=== PATIENT | male | born 1990 | race Caucasian/White ===

== ENCOUNTER 2023-04-24 09:56 | Emergency (ER) | payer BC, SELFPAY ==
[2023-04-24 10:07] VITALS: BP 119/69; PULSE 88; RESP 18; TEMP 36.8; O2SAT 98; BMI 23.1
--- NOTE | 2023-04-24 11:07 | ED_ITS ---
HPI - General Adult General Chief complaint: Nausea/Vomiting/Diarrhea Stated complaint: flu like symptoms Time Seen by Provider: 04/24/23 10:55 Source: patient Mode of arrival: walk-in Limitations: no limitations History of Present Illness HPI narrative: patient's here complaining of nausea. He says occasionally dry heaves but he really doesn't have much of that. This is been going off-and-on for a couple weeks. He does have sleep disruption because he going to different jobs. He is not had a change in bowel movements. He says he has chronic diarrhea. He's not had fever shakes or chills. No previous surgical history. He does not use marijuana products. No urinary problems. He does not have a history of gastric ulcers, in fact he has no abdominal discomfort or pain at all just subliminal nausea. He does not use alcoholic beverages. He's not had a history of pancreatitis or hepatitis. His bowel movements are now normal color. His urine is normal color. Hot had any weight loss, in fact he is put on a little bit of weight in the last three months. Related Data Home Medications Medication Instructions Recorded Confirmed ibuprofen 200 mg tablet (Advil) 200 mg PO Q8H PRN fever or pain 04/24/23 04/24/23 Allergies Allergy/AdvReac Type Severity Reaction Status Date / Time acetaminophen Allergy Intermediate Rash Verified 04/24/23 10:05 [From [facility] NyQuil Cold/Flu Liquicap] dextromethorphan Allergy Intermediate Rash Verified 04/24/23 10:05 [From [facility] NyQuil Cold/Flu Liquicap] doxylamine Allergy Intermediate Rash Verified 04/24/23 10:05 [From [facility] NyQuil Cold/Flu Liquicap] pcn Allergy Intermediate Hives Uncoded 04/24/23 10:05 vicodin Allergy Mild Migraine Uncoded 04/24/23 10:05 [facility] PFSH Social History Smoking status: Current some day smoker Exam Narrative Exam Narrative: awake alert pleasant male does not appear in any distress. He came from work and his hands are covered with grease. We did talk to him about possibility carbon monoxide poisoning at home or toxic fumes at work and he does not think that is relevant or the cause of his nausea. No other coworkers or family residents at home have the symptoms. Otherwise he is very pleasant vital signs are stable. Clinical examination the abdomen shows no hepatosplenomegaly no guarding rebound rigidity or peritoneal findings. No abdominal distention. HEENT examination shows no focus of infection is no scleral icterus or jaundice. Trunk torso or extremities are unremarkable. He has no respiratory distress. Constitutional Vital Signs, click to edit/add: Last Vital Signs Temp 98.2 F 04/24/23 10:07 Pulse 88 04/24/23 10:07 Resp 18 04/24/23 10:07 BP 119/69 04/24/23 10:07 Pulse Ox 98 04/24/23 10:07 O2 Del Method Room Air 04/24/23 10:07 Course Vital Signs Vital signs: Vital Signs Temperature 98.2 F 04/24/23 10:07 Pulse Rate 88 04/24/23 10:07 Respiratory Rate 18 04/24/23 10:07 Blood Pressure 119/69 04/24/23 10:07 Pulse Oximetry 98 04/24/23 10:07 Oxygen Delivery Method Room Air 04/24/23 10:07 Temperature 98.2 F 04/24/23 10:07 Pulse Rate 88 04/24/23 10:07 Respiratory Rate 18 04/24/23 10:07 Blood Pressure 119/69 04/24/23 10:07 Pulse Oximetry 98 04/24/23 10:07 Oxygen Delivery Method Room Air 04/24/23 10:07 Medical Decision Making [facility] Narrative Medical decision making narrative: patient with isolated nausea, no weight loss no other worrisome symptoms. 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 Laboratory testing shows normal chem fourteen kidney function and white blood cell count. No physical findings. L have to treat him in. Empirically with Zofran. He should follow up with primary care or gastrointestinal should symptoms persist Lab Data Labs: Lab Results 04/24/23 Range/Units 11:03 WBC 10.3 (4.0-11.0) 10^3/uL RBC 4.47 L (4.70-6.10) 10^6/uL Hgb 13.9 L (14.0-18.0) g/dL Hct 41.5 L (42.0-54.0) % MCV 92.8 (80.0-94.0) fL MCH 31.1 (25.9-34.0) pg MCHC 33.5 (29.9-35.2) g/dL RDW 12.9 (11.0-15.0) % Plt Count 234 (150-450) 10^3/uL MPV 9.1 L (9.5-13.5) fL Neut % (Auto) 72.7 (43.0-75.0) % Lymph % (Auto) 18.2 L (20.5-60.0) % [place] % (Auto) 6.6 (1.7-12.0) % Eos % (Auto) 1.8 (0.9-7.0) % Baso % (Auto) 0.4 (0.2-2.0) % Neut # (Auto) 7.5 H (1.4-6.5) 10^3/uL Lymph # (Auto) 1.9 (1.2-3.8) 10^3/uL [place] # (Auto) 0.7 (0.3-0.8) 10^3/uL Eos # (Auto) 0.2 (0.0-0.7) 10^3/uL Baso # (Auto) 0.0 (0.0-0.1) 10^3/uL Abs Immat Gran (auto) 0.03 (0.00-0.03) 10^3/uL Imm/Tot Granulo (auto) 0.3 (0.0-0.5) % Sodium 140 (136-145) mmol/L Potassium 4.4 (3.5-5.1) mmol/L Chloride 103 (98-107) mmol/L Carbon Dioxide 28.7 (21.0-32.0) mmol/L Anion Gap 12.7 BUN 13.0 (7.0-18.0) mg/dL Creatinine 0.93 (0.70-1.30) mg/dL Est GFR ( Amer) >60 (>=60) Est GFR (Non-Af Amer) >60 (>=60) BUN/Creatinine Ratio 14.0 Glucose 86 (74-106) mg/dL Calcium 9.0 (8.5-10.1) mg/dL Total Bilirubin 0.5 (0.2-1.0) mg/dL AST 18 (15-37) U/L ALT 29 (16-63) U/L Alkaline Phosphatase 50 (46-116) U/L Total Protein 7.0 (6.4-8.2) g/dL Albumin 4.0 (3.4-5.0) g/dL Globulin 3.0 g/dL Albumin/Globulin Ratio 1.3 Lipase 22.0 (16.0-77.0) U/L Discharge Plan Discharge Chief Complaint: Nausea/Vomiting/Diarrhea Clinical Impression: Nausea Patient Disposition: Home, Self-Care Time of Disposition Decision: 12:17 Prescriptions / Home Meds: No Action ibuprofen [Advil] 200 mg tablet 200 mg PO Q8H PRN (Reason: fever or pain) Additional Instructions: may use Zofran as needed, follow up with primary care doctor or gastroenterology if symptoms persist Stand Alone Forms: Portal Instructions Referrals: Physician,Non-Staff, MD [Primary Care Provider] - 1 week
[2023-04-24 11:20] LABS: Basophils Percent Auto 0.4 % (0.2-2.0); Eosinophils Absolute Auto 0.2 10^3/uL (0.0-0.7); Eosinophils Percent Auto 1.8 % (0.9-7.0); Hematocrit 41.5 % (42.0-54.0); Hemoglobin 13.9 g/dL (14.0-18.0); Immature Granulocytes Abs Auto 0.03 10^3/uL (0.00-0.03); Immature Granulocytes Pct Auto 0.3 % (0.0-0.5); Lymphocytes Absolute Auto 1.9 10^3/uL (1.2-3.8); Lymphocytes Percent Auto 18.2 % (20.5-60.0); Mean Corpuscular HGB Conc 33.5 g/dL (29.9-35.2); Mean Corpuscular Hemoglobin 31.1 pg (25.9-34.0); Mean Corpuscular Volume 92.8 fL (80.0-94.0); Mean Platelet Volume 9.1 fL (9.5-13.5); Monocytes Absolute Auto 0.7 10^3/uL (0.3-0.8); Monocytes Percent Auto 6.6 % (1.7-12.0); Neutrophils Absolute Auto 7.5 10^3/uL (1.4-6.5); Neutrophils Percent Auto 72.7 % (43.0-75.0); Platelet Count 234 10^3/uL (150-450); Red Blood Count 4.47 10^6/uL (4.70-6.10); Red Cell Distribution Width 12.9 % (11.0-15.0); White Blood Count 10.3 10^3/uL (4.0-11.0)
[2023-04-24 11:35] LABS: Alanine Aminotransferase 29 U/L (16-63); Albumin Globulin Ratio 1.3; Alkaline Phosphatase 50 U/L (46-116); Anion Gap 12.7; Aspartate Amino Transferase 18 U/L (15-37); Bilirubin Total 0.5 mg/dL (0.2-1.0); Carbon Dioxide 28.7 mmol/L (21.0-32.0); Chloride 103 mmol/L (98-107); Estimated GFR (African America >60 (>=60); Estimated GFR (Non-African Ame >60 (>=60); Glucose 86 mg/dL (74-106); Potassium 4.4 mmol/L (3.5-5.1); Sodium 140 mmol/L (136-145)
== END 2023-04-24 12:25 | disposition home or self-care (01) ==
PROVIDERS: Emergency Provider Emergency Medicine Emergency Medical Services
DX: R11.0 Nausea (principal); F17.210 Nicotine dependence, cigarettes, uncomplicated
CPT/HCPCS: 36415; 80053; 83690; 85025; 99283

== ENCOUNTER 2023-11-15 07:25 | Emergency (ER) | payer BC, SELFPAY ==
[2023-11-15 07:29] VITALS: BP 122/80; PULSE 97; TEMP 36.7; O2SAT 98; BMI 23.3
--- NOTE | 2023-11-15 07:32 | XR_ITS ---
The [address] [address] Patient Name: REFUGIO POSADAS MRN: [id number] date: 1990 Sex: M Assigned Patient Location: ER Current Patient Location: ER Accession/Order Number: [id number] Exam Date: 11/15/2023 07:36 Report Date: 11/15/2023 08:07 At the request of: JESUS PARRY Procedure: XR hand LT min 3V PROCEDURE: XR hand LT min 3V HISTORY: injury ; second metacarpal pain and swelling following injury COMPARISON: None. FINDINGS: BONES:No fracture, acute abnormality, or significant arthropathy. SOFT TISSUES:No visible soft tissue swelling. EFFUSION:None visible. OTHER: Negative. XR/XR hand LT min 3V IMPRESSION: 1. No acute bone abnormality. Electronically authenticated by: RICHARD WILSON Date: 11/15/2023 08:07
--- OUTSIDE RECORDS SUMMARY | 2023-11-15 07:34 | XMS_ITS | CCD ---
Author Organization [facility] Care Team Providers Care Cardiologist Name Role Phone Unavailable Primary Care Provider UnavailBRYCE Mccord Attending Unavailable BRYCE RODRIGUEZ Consulting Unavailable BRYCE RODRIGUEZ Admitting Unavailable REQUEST, NONE LISTED Primary Care Unavaila ble NONE, XXXX Primary Care Physician Unavailab le MAITE Moreno Attending Provider [phone] NON STAFF Primary Care Provider UnavailMAITE Light Attending Provider [phone] MAITE Moreno Attending Provider [phone] NON STAFF Primary Care Provider Unavailradha Bansal APRN Ghazala Christine Attending Provider [phone] MAITE Bansal Ghazala D Attending Provider [phone] NON STAFF Primary Care Unavailable Bansal, Ghazala D Attending Unavailable Bansal, Ghazala D Admitting Unavailable NON STAFF Primary Care Unavailable Gabrielle Moreno Admitting Unavailable Gabrielle Moreno Attending Unavailable NON STAFF Primary Care Unavailable Bansal, Ghazala D Admitting Unavailable Bansal, Ghazala D Attending Unavailable NON STAFF Primary Care Unavailable Bansal, Ghazala D Admitting Unavailable Bansal, Ghazala D Attending Unavailable Bansal, Ghazala D Admitting Unavailable NON STAFF Primary Care Unavailable Bansal, Ghazala D Attending Unavailable NON STAFF Primary Care Unavailable Bansal, Ghazala D Attending Unavailable Bansal, Ghazala D Admitting Unavailable Unavailable Primary Care Provider UnavailPALLAVI Azevedo Attending Unavailable Jeremiah Torres Attending Unavailable BANSAL, GHAZALA Referring Unavailable NO PCP, NO PCP Primary Care Unavailable BANSAL, GHAZALA Referring Unavailable NO PCP, NO PCP Primary Care Unavailable BANSAL, GHAZALA Referring Unavailable NO PCP, NO PCP Primary Care Unavailable Allergies Allergy Classification Reported Allergen(s) Allergy Type Date of Onset Reaction(s) Facility (3 sources) Acetaminophen / HYDROcodone; Translations: [HYDROCODONE-ACETAM INOPHEN] Drug Allergy 04-25-20 18 [place], [place] (9 sources) Penicillins; Translations: [penicillins] Propensity to adverse reactions to drug 01-15-20 17 Anaphylaxis [place], [place] (1 source) Acetaminophen / HYDROcodone Drug Allergy 04-22-20 17 [facility] (1 source) Acetaminophen / Pseudoephedrine Drug Allergy 12-13-19 17 [facility] (1 source) diphenhydrAMINE Drug Allergy [facility] (1 source) Penicillins Drug allergy (disorder) 07-16-19 14 [facility] (2 sources) NyQuil; Translations: [NYQUIL] Drug allergy (disorder) 12-13-19 17 [facility] (6 sources) Acetaminophen; Translations: [acetaminophen] Drug Allergy 07-19-19 migraine, [facility] (6 sources) Dextromethorphan; Translations: [dextromethorphan] Drug Allergy 07-19-19 [facility] (6 sources) diphenhydrAMINE; Translations: [diphenhydramine] Drug Allergy 07-19-19 [facility] (6 sources) Doxylamine; Translations: [doxylamine] Drug Allergy 07-19-19 [facility] (6 sources) HYDROcodone; Translations: [hydrocodone] Drug Allergy 07-19-19 [facility] (6 sources) Pseudoephedrine; Translations: [pseudoephedrine] Drug Allergy 07-19-19 [facility] (1 source) Penicillins Drug allergy (disorder) 07-19-19 [facility] (1 source) Penicillins Propensity to adverse reactions to drug 01-15-20 17 Anaphylaxis [facility] (1 source) diphenhydrAMINE; Translations: [DIPHENHYDRAMINE HCL] Drug Allergy 04-09-20 20 [facility] (1 source) [id number] AMINOPHEN; Translations: [SCMQDEBKVUE-XD-FWO TAMINOPHEN] Propensity to adverse reactions to drug (disorder) 04-09-20 [facility] Medications Current Medications Medication Drug Class(es) Dates Sig (Normalized) Sig (Original) acetaminophen 500 mg oral tablet (3 sources) Start: 12-25-2019 acetaminophen (TYLENOL) tablet 1,000 mg Start: 12-24-2019 End: 10-03-2023 take 1 tablet by mouth every six hours as needed for pain acetaminophen (TYLENOL) 325 MG tablet Take 1 tablet by mouth every 6 hours as needed for Pain 30 tablet 0 12/24/2019 10/03/2023 Discontinued (LIST CLEANUP) [id number] 200 actuat albuterol 0.09 mg/actuat metered dose inhaler (2 sources) beta2-Adrenergic Agonist Start: 01-14-2017 albut maryjo sulfate HFA (PROVENTIL HFA) 108 (90 Base) MCG/ACT inhaler Inhale 1-2 puffs into the lungs every 4 hours as needed for Wheezing or Shortness of Breath (Space out to every 6 hours as symptoms improve) Space out to every 6 hours as symptoms improve. 1 Inhaler 0 01/14/2017 Active Start: 01-14-2017 albuterol sulf ate HFA (PROVENTIL HFA) 108 (90 Base) MCG/ACT inhaler Inhale 1-2 puffs into the lungs every 4 hours as needed for Wheezing or Shortness of Breath (Space out to every 6 hours as symptoms improve) Space out to every 6 hours as symptoms improve. 1 Inhaler 0 01/14/2017 Active Yowqzel-Gcbgfkmofrrjx-Ofxxvk ne (EXCEDRIN MIGRAINE PO) (1 source) Aspirin-Acetamin ophen-Caffeine (EXCEDRIN MIGRAINE PO) Take by mouth 0 Active azithromycin 250 mg oral tab let (1 source) Macrolide Antimicrobial S t a r t : 0 4 - 1 7 - 2 0 2 4 E n d : 0 4 - 2 2 - 2 0 2 4 take 2 tablets by mouth once daily azithromycin (ZITHROMAX) 250 MG tablet Take 2 tablets by mouth daily for 5 days 10 tablet 0 10/03/2023 10/08/2023 Active ibuprofen 600 mg oral tablet (7 sources) Nonsteroidal Anti-inflammat ory Drug S t a r t : 0 4 - 1 7 - 2 0 2 4 take 1 tablet by mouth every six hours as needed for pain ibuprofen (IBU) 600 MG tablet Take 1 tablet by mouth every 6 hours as needed for Pain 120 tablet 0 10/03/2023 Active Start: 12-24-2019 End: 10-03-2023 take 1 tablet by mouth every eight hours as needed for pain ibuprofen (IBU) 800 MG tablet Take 1 tablet by mouth every 8 hours as needed for Pain 10 tablet 3 05/29/2023 10/03/2023 Discontinued (LIST CLEANUP) End: 10-03-2023 ibuprofen (ADVIL;MOTRIN) 200 MG CAPS Take 2 capsules by mouth 0 10/03/2023 Discontinued (LIST CLEANUP) naproxen 500 mg oral tablet (1 source) Nonsteroidal Anti-inflammatory Drug Start: 07-17-2023 take 1 tablet by mouth twice daily Naprosyn 500 mg Tab 500 mg = 1 tab(s), Oral, BID, # 20 tab(s), Refills(s) 0 Start Date: 07/17/23 Status: Ordered tiZANidine 4 mg oral tablet (2 sources) Central alpha-2 Adrenergic Agonist Start: 12-24-2019 End: 10-03-2023 take 1 tablet by mouth every eight hours as needed tiZANidine (ZANAFLEX) 4 MG tablet Take 1 tablet by mouth every 8 hours as needed (Shoulder oain) 12 tablet 0 12/24/2019 10/03/2023 Discontinued (LIST CLEANUP) Completed/Discontinued Medications Medication Drug Class(es) Dates Sig (Normalized) Sig (Original) 2 ml orphenadrine citrate 30 mg/ml injection (1 source) Muscle Relaxant Start: 12-25-2019 End: 12-25-2019 orphenadrine (NORFLEX) injection 60 mg Problems Problem Classification Problem Date Documented Date Episodic/Chronic Crushing injury or internal injury (2 sources) Crushing injury of forearm; Translations: [Crushing injury of unspecified forearm, initial encounter] Onset: 07-17-2023 Episodic Headache; including migraine (1 source) Other migraine, not intractable, without status migrainosus; Translations: [Other migraine, not intractable, without status migrainosus] Onset: 05-29-2023 Chronic Headache; including migraine (3 sources) Headache; including migraine; Translations: [HEADACHE UNSPECIFIED] Onset: 11-09-2021 Other upper respiratory infections (3 sources) Acute sinusitis, unspecified; Translations: [Streptococcal sore throat] Onset: 11-10-2021 10-03-2023 Episodic Sprains and strains (1 source) Shoulder strain; Translations: [Strain of right shoulder, initial encounter] Episodic Substance-related disorders (1 source) Smoker 03-24-2014 Chronic Comment on above: Added secondary to d ocumentation in Social History. Superficial injury; contusion (1 source) Contusion of right forearm, initial encounter; Translations: [Contusion of right forearm, initial encounter] Onset: 09-21-2023 Episodic Unclassified (1 source) Contusion of right forearm, initial encounter; Translations: [Contusion of right forearm, initial encounter] Onset: 08-03-2023 Unclassified (1 source) Crushing injury of right hand, initial encounter; Translations: [Crushing injury of right hand, initial encounter] Onset: 07-24-2023 Results Test Name Value Interpretation Reference Range Facil ity COVID-19, Rapidon 10-03-2023 SARS-CoV-2 (COVID-19) RdRp gene JAHAIRA+probe Ql (Resp) Not detected Not Detected [facility] Comment on above: Rapid NAAT: The specimen is NEGATIVE for SARS-CoV-2, the novel coronavirus associated with COVID-19. The ID NOW COVID-19 assay is designed to detect the virus that causes COVID-19 in patients with signs and symptoms of infection who are suspected of COVID-19. An individual without symptoms of COVID-19 and who is not shedding SARS-CoV-2 virus would expect to have a negative (not detected) result in this assay. Negative results should be treated as presumptive and, if inconsistent with clinical signs and symptoms or necessary for patient management, should be tested with an alternative molecular assay. Negative results do not preclude SARS-CoV-2 infection and should not be used as the sole basis for patient management decisions. Fact sheet for Healthcare Providers: https://www.fda.gov/media/679929/download Fact sheet for Patients: https://www.fda.gov/media/562446/download Methodology: Isothermal Nucleic Acid Amplification Specimen Description .NASOPHARYNGEAL SWAB [facility] Flu A/B Ag Detectionon 10-02 Flu A Ag Detection Negative Normal NEG [facility] Comment on above: Result Comment: for Influenza A Antigen Performed By: #### F LUABA #### [facility] [address] [place], [place] [id number] Supervisor [employer]: Dc Walker MD Flu B Ag Detection Negative Normal NEG [facility] Comment on above: Result Comment: for Influenza B Antigen. Performed By: #### F LUABA #### [facility] [address] [place] [address] Supervisor [employer]: Dc Walker MD Rapid Strep Screenon 024 Interpretation and review of laboratory results Abnormal [facility] Specimen source Nom (Unsp spec) .THROAT SWAB [facility] Strep A, Molecular 0.1 Abnormal NEGATIVE [facility] Rapid influenza A/B antigens on 10-03-2023 FLUAV Ag Ql (Unsp spec) Negative NEGATIVE [facility] Comment on above: for Influenza A Anti gen FLUBV Ag Ql (Unsp spec) Negative NEGATIVE [facility] Comment on above: for Influenza B Anti gen. [facility] [id number] 10-03-2023 SARS-CoV-2 (COVID-19) RNA JAHAIRA+probe Ql (Unsp spec) Not detected Normal NOTDET [facility] Comment on above: Result Comment: Rapid NAAT: The specimen is NEGATIVE for SARS-CoV-2, the novel coronavirus associated with COVID-19. The ID NOW COVID-19 assay is designed to detect the virus that causes COVID-19 in patients with signs and symptoms of infection who are suspected of COVID-19. An individual without symptoms of COVID-19 and who is not shedding SARS-CoV-2 virus would expect to have a negative (not detected) result in this assay. Negative results should be treated as presumptive and, if inconsistent with clinical signs and symptoms or necessary for patient management, should be tested with an alternative molecular assay. Negative results do not preclude SARS-CoV-2 infection and should not be used as the sole basis for patient management decisions. Fact sheet for Healthcare Providers: https://www.fda.gov/media/281441/download Fact sheet for Patients: https://www.fda.gov/media/776077/download Methodology: Isothermal Nucleic Acid Amplification Performed By: #### C OVRB #### [facility] [address] [place] [address] Supervisor [employer]: Dc Walker MD Strep Group A, Rapidon 10-02 Strep A, Molecular .1 Abnormal NEG [facility] Comment on above: Performed By: #### R SAB #### [facility] [address] [place] [address] Supervisor [employer]: Dc Walker MD Source .THROAT SWAB Normal [facility] Comment on above: Performed By: #### R SAB #### [facility] [address] [place] [address] Supervisor [employer]: Dc Walker MD XR wrist RT min 3V*on 2023 XR wrist RT min 3V* [facility] Main [address] [address] XRay Report Signed Patient: Refugio Posadas MR#: [id number] : 1990 Acct:[id number] Age/Sex: 33 / M ADM Date: 07/19/23 Loc: [facility] Room: Type: [facility] Attending Dr: Gabrielle Moreno APRN Copies to: Gabrielle Moreno APRN Ordering Provider: Gabrielle Moreno APRN Date of Service: 07/19/23 XR/XR wrist RT min 3V*: RIGHT WRIST PAIN RIGHT WRIST - 4 views CLINICAL DATA: Crush injury of right arm between 2 metal pieces of machinery at work 2 days ago. Pain, numbness and tingling at the wrist, greater laterally. COMPARISON: None AP, lateral, ulnar deviation and oblique views were obtained. There is no evidence of fracture or dislocation. There are no significant soft tissue abnormalities. XR/XR wrist RT min 3V* IMPRESSION: NO ACUTE BONY INJURY. Impression dictated by: Laura Sewell M.D.07/19/2023 3:52 PM Dictation Location: [place] [address] Transcribed By: [facility] 07/19/231551 Dictated By: Laura Sewell MD 07/19/231549 Signed By: 07/19/23 155 Normal [facility] Consent for Treatmenton 06-20 Consent for Treatment [id number] Normal [facility] Discharge Instructionson Discharge Instructions [id number] .[id number] Normal [facility] ED Clinical Summaryon 2023 ED Clinical Summary [place] [id number] ED Clinical Summary Person Information Name: REFUGIO POSADAS/[facility] Age: 33 Years : 1990 Sex: Male Language: East Timorese PCP: NONE, XXXX Marital Status: Single Visit Id: Visit Reason: Arm injury - Minor; arm injury at work Speciality: Acuity: 4 Enc Type: Emergency Med Service: Emergency Arrival: 07/17/2023 10:28:59 Discharge: 07/17/2023 13:06:50 LOS: 000 02:38 Checkin: 07/17/2023 10:28:59 Checkout: 07/17/2023 13:06:50 Dispo Type: Home (Routine DC) EVENTS: Event Name Event Status Request Date/Time Start Date/Time Complete Date/Time Arrive Complete 07/17/2023 10:28:59 07/17/2023 10:28:59 07/17/2023 10:28:59 Document Home Meds Request 07/17/2023 10:28:59 Triage Complete 07/17/2023 10:28:59 07/17/2023 10:45:37 07/17/2023 10:45:37 Bed Assign Complete 07/17/2023 10:40:37 07/17/2023 10:40:37 07/17/2023 10:40:37 Dr Exam Complete 07/17/2023 10:40:37 07/17/2023 10:43:22 07/17/2023 10:43:22 RN Exam Complete 07/17/2023 10:40:37 07/17/2023 11:07:51 07/17/2023 11:07:51 Registration Complete 07/17/2023 10:43:22 07/17/2023 11:55:38 07/17/2023 11:55:38 Dr Exam Complete 07/17/2023 10:43:46 07/17/2023 10:43:46 07/17/2023 10:43:46 Workers Comp Request 07/17/2023 10:45:38 X-Ray Complete 07/17/2023 11:06:37 07/17/2023 11:13:48 07/17/2023 11:39:28 Wet Read Complete 07/17/2023 11:39:28 07/17/2023 12:29:15 07/17/2023 12:29:15 Reg Complete Request 07/17/2023 11:55:38 Reg Bed Request Complete 07/17/2023 11:55:38 07/17/2023 11:55:38 07/17/2023 11:55:38 Meds Admin Complete 07/17/2023 12:45:59 07/17/2023 12:56:18 Discharge Complete 07/17/2023 12:46:02 07/17/2023 13:06:54 07/17/2023 13:06:54 Transfer Complete 07/17/2023 13:06:54 07/17/2023 13:06:54 07/17/2023 13:06:54 ADDRESS: [address] [place] [address] [facility] [id number] PHYS DOC NOTES: MEDICAL INFORMATION: Prescriptions Given: New Medications Printed Prescriptions naproxen (Naprosyn 500 mg Tab) 1 Tablets By Mouth 2 times a day. Refills: 0. PATIENT EDUCATION INFORMATION: Instructions: Crush Injury of the Hand Follow up: With: Address: When: Occupational Health: [facility] [phone] In 3 days 07/20/2023 DIAGNOSIS: Crush injury forearm Normal [facility] ED Note-Physicianon 07-17-19 24 ED Note-Physician Basic Information Time Seen: Shelbie DE PAZDylon 07/17/2023 10:43 Chief Complaint crankshaft pinned arm in block less than a minute. Rt arm pain and swelling History of Present Illness 33-year-old male comes to the ED for evaluation of right arm pain. 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 He presents complaining of pain along the right forearm. No prior treatments. No other area of injury or concern. Review of Systems A 10 point review of systems is negative except as noted above. Medical and Surgical History: Reviewed and noted Social history: Lives at home Tobacco: Current Physical Exam Vitals & Measurements T: 37 ?C(Oral) HR: 88(Peripheral) RR: 15 BP: 125/76 SpO2: 99% HT: 182.88 cm WT: 75 kg BMI: 22.42 Nurses notes and vital signs reviewed and patient is not hypoxic. General: The patient appears well, resting comfortably. Skin: Warm, dry. Head: Atraumatic. Neck: No JVD. Eye: Normal conjunctiva. Ears, Nose, Mouth, and Throat: Moist mucous membranes. Cardiovascular: Strong distal pulses. Chest wall: Respiratory: Respirations are nonlabored. Back: Normal range of motion. Musculoskeletal: Diffuse tenderness along the right forearm. Maximally tender along the distal aspect. No significant soft tissue swelling. Compartments remain soft. Good distal pulses. Good range of motion of the fingers and wrist. Gastrointestinal: Urological: Neurological: Awake and alert. No focal deficits. Follows commands. Psychiatric: Cooperative. Medical Decision Making Patient presents with crush injury to the right forearm. Imaging shows no acute findings but on examination he does have tenderness but compartments remain soft. Pain is not out of proportion. No paresthesias or other indication of compartment syndrome. He is treated with anti-inflammatories and a wrist splint. He is discharged home with occupational health follow-up. Patient was encouraged to return to the ED if symptoms worsen or change. Assessment/Plan Crush injury forearm (S57.80XA: Crushing injury of unspecified forearm, initial encounter) Orders: ibuprofen, 600 mg = 1 tab(s), Tab, Oral, Once, Stop date 07/17/23 12:45:00 EST, STAT, Start date 07/17/23 12:45:00 EST, 07/17/23 12:45:00 EST naproxen, 500 mg = 1 tab(s), Oral, BID, # 20 tab(s), Refills(s) 0 Splint Application Wrist XR Forearm 2 Views Right Medications Administered Given ibuprofen 600 mg Tab, 600 mg, Oral Disposition Plan Patient Discharge Condition Disposition: Discharged home Condition: Improved and stable Counseled: Patient and/or family were counseled to workup, results, treatment plan and follow-up recommendations Discharge Prescription List Prescriptions Naprosyn 500 mg Tab, 500 mg= 1 tab(s), Oral, BID Follow-up With When Contact Information Occupational Health: [facility] [phone] In 3 days 07/20/2023 EST Additional Instructions: Patient Education Crush Injury of the Hand Attestation I performed a substantive part of the MDM during the patient?s E/M visit. I personally made or approved the documented management plan and acknowledge its risk of complications. (Independent Interpretation) My (EKG/X-Ray/US/CT) interpretation as above. (Discussion) Management/test interpretation discussed with APC. This report was transcribed using voice recognition software. Every effort was made to ensure accuracy, however, inadvertently computerized facility worker mistakes may be present. Appropriate healthcare PPE was used in evaluating this patient. Problem List/Past Medical History Ongoing Smoker 18-DEC-2013 12:37:00<$> Historical No qualifying data Medications Inpatient No active inpatient medications Home Naprosyn 500 mg Tab, 500 mg= 1 tab(s), Oral, BID Allergies penicillins Social History Alcohol - Medium Risk, 07/17/2023 Current, Beer, 1-2 times per month, 07/17/2023 Substance Abuse - Denies Substance Abuse, 07/17/2023 Tobacco - High Risk, 07/17/2023 10 or more cigarettes (1/2 pack or more)/day in last 30 days Tobacco Use:., 07/17/2023 Lab Results No qualifying data available. Diagnostic Results XR Forearm 2 Views Right 07/17/23 13:06:03 IMPRESSION: No acute osseous findings. EXAMINATION/TECHNIQUE : XR Forearm 2 Views Right HISTORY: Right forearm pain. COMPARISON: None RESULT: No evidence for acute fracture involving the right forearm. Alignment at the wrist and elbow appears maintained. Soft tissue edema. No other significant abnormality. Ordering Provider: Dylon Morfin Signed By: Robbie Glez MD 07/17/23 11:39:28 Radiation Dose: narda Beard in mGy = na DAP = na Signed By: Robbie Glez MD [facility] Comment on above: Result Comment: Elec tronically Signed By: Dylon Morfin PA-C\.br\Date and Time Signed: 07/17/23 18:22 EST\.br\Electronically Co-Signed By: Jeremiah Torres DO\.br\Date and Time Co-Signed: 07/17/23 18:23 EST ED Patient Education Noteon 07-17-2023 ED Patient Education Note Orthopedics Crush Injury of the Hand When a crush injury of the hand occurs, many structures within the hand and wrist can be affected. This can result in a complicated injury that may involve: ? One or more broken (fractured) bones. ? Lacerations or abrasions of the skin. These increase your risk of infection. ? Compressed or torn muscles. ? Torn ligaments and tendons. ? Broken blood vessels, causing bleeding within the tissues. This can lead to dangerously high pressure within the tissues (compartment syndrome). ? Damage to nerves. ? One or more finger amputations. What are the causes? This type of injury can happen when a great amount of force is suddenly applied to the hand. This might occur: ? During a motor vehicle accident. ? If a heavy load falls directly onto the hand. ? If the hand is pulled into a machine during industrial or agricultural work. What are the signs or symptoms? Symptoms will vary depending on which structures in your hand have been injured. Symptoms may include: ? Moderate or severe pain in the hand, wrist, or arm. ? Bleeding at the site of injury. ? Tingling, numbness, or loss of feeling (sensation) in part or all of your hand. ? Loss of movement in part or all of your hand. How is this diagnosed? Your health care provider will examine you and ask questions about how your injury happened. The exam may include checking for sensation and blood flow into your hand. You may also have tests, including X-rays and procedures to check the pressure in your hand. After initial treatment, additional tests may be done to further diagnose the extent of your injuries. These may include: ? A nerve conduction study to determine how well the nerves are working in your arm and hand. ? An MRI to determine if other injuries occurred that do not usually show up on an X-ray. How is this treated? Treatment for this condition depends on the severity of your crush injury. Treatment may include: ? A thorough cleaning if you have an open wound. This may or may not require surgery. ? Having a splint applied to your fingers, hand, or forearm. ? Medicine to relieve pain. ? Antibiotic medicine to prevent infection. ? Stitches (sutures) to close open wounds. ? One or more surgeries to address injuries to skin, bones, joints, tendons, ligaments, muscles, nerves, or blood vessels. Follow these instructions at home: If you have a splint: ? Wear the splint as told by your health care provider. Remove it only as told by your health care provider. ? Do not put pressure on any part of the splint until it is fully hardened. This may take several hours. ? Loosen the splint if your fingers tingle, become numb, or turn cold and blue. ? Keep the splint clean. ? If the splint is not waterproof: ? Do not let it get wet. ? Cover it with a watertight covering when you take a bath or shower. Wound care ? If you have any skin wounds that were covered with bandages (dressings), follow instructions from your health care provider about how to take care of your wound. Make sure you: ? Wash your hands with soap and water before and after you change your dressing. If soap and water are not available, use hand care manager. ? Change your dressing as told by your health care provider. ? Leave stitches (sutures), skin glue, or adhesive strips in place. These skin closures may need to stay in place for 2 weeks or longer. If adhesive strip edges start to loosen and curl up, you may trim the loose edges. Do not remove adhesive strips completely unless your health care provider tells you to do that. ? If you have skin wounds, check them every day for signs of infection. Check for: ? More redness, swelling, or pain. ? More fluid or blood. ? Warmth. ? Pus or a bad smell. Managing pain, stiffness, and swelling ? If directed, put ice on the injured area. ? Put ice in a plastic bag. ? Place a towel between your skin and the bag. ? Leave the ice on for 20 minutes, 2?3 times a day. ? Raise (elevate) the injured area above the level of your heart while you are sitting or lying down. Driving ? Ask your health care provider: ? If the medicine prescribed to you requires you to avoid driving or using heavy machinery. ? When it is safe to drive if you have a splint on your hand or arm. Activity ? Return to your normal activities as told by your health care provider. Ask your health care provider what activities are safe for you. ? Work with a physical therapist (PT) or occupational therapist (OT) as told by your health care provider. General instructions ? Take acav-xch-zxhqftg and prescription medicines only as told by your health care provider. ? If you were prescribed an antibiotic, take it as told by your health care provider. Do not stop taking the antibiotic even if you start to feel better. ? Do not use any products that contain nicotine or (more content not included)... [facility] ED Patient Summaryon 024 ED Patient Summary [place] [id number] Patient Discharge Instructions Person Information Name: REFUGIO POSADAS Age: 33 Years Arrival Date: 07/17/2023 10:28:59 Discharge Diagnosis: Crush injury forearm Primary Care Physician: NONE, XXXX Provider Information Primary Provider: Jeremaih Torres DO [employer] Distributor:Dylon Morfin PA-C The exam and treatment you received in the Emergency Department were for an urgent problem and are not intended as complete care. It is important that you follow up with a doctor, nurse practitioner, or physician?s merchandising assistant for ongoing care. If your symptoms become worse or you do not improve as expected and you are unable to reach your usual health care provider, you should return to the Emergency Department. We are available 24 hours a day. REFUGIO POSADAS has been given the following list of patient education materials, prescriptions and follow-up instructions: Follow-up Instructions: With: Address: When: Occupational Health: [facility] [phone] In 3 days 07/20/2023 In the event that this physician does not participate in your insurance network, please consult with your insurance company to find a nearby participating provider. Patient Education Materials: Crush Injury of the Hand A MESSAGE TO ALL PATIENTS REGARDING OPIOIDS PRESCRIPTION OPIOIDS: WHAT YOU NEED TO KNOW Prescription opioids can be used to help relieve weaozeoz-hn-rddcyr pain and are often prescribed following a surgery or injury, or for certain health conditions. These medications can be an important part of the treatment but also come with serious risks. It is important to work with your healthcare provider to make sure you are getting the safest, most effective care. WHAT ARE THE RISKS AND SIDE EFFECTS OF OPIOID USE? Prescription opioids carry serious risks of addiction and overdose, especially with prolonged use. An opioid overdose, often marked by slowed breathing, can cause sudden . The use of prescription opioids can have a number of side effects as well, even when taken as directed: ? Tolerance?meaning you might need to take more of the medication for the same pain relief ? Physical dependence?meaning you have symptoms of withdrawal when a medication is stopped ? Increased sensitivity to pain ? Constipation ? Nausea, vomiting, and dry mouth ? Sleepiness and dizziness ? Confusion ? Depression ? Low levels of testosterone that can result in lower sex drive, energy, and strength ? Itching and sweating RISKS ARE GREATER WITH: ? History of drug misuse, substance use disorder, or overdose ? Mental health conditions (such as depression or anxiety) ? Sleep apnea ? Older age (65 years and older) ? Avoid alcohol while taking prescription opioids. Also, unless specifically advised by your health care provider, medications to avoid include: ? Benzodiazepines (such as Xanax or Valium) ? Muscle relaxants (such as Soma or Flexeril) ? Hypnotics (such as Ambien or Lunesta) ? Other prescription opioids KNOW YOUR OPTIONS Talk to your health care provider about ways to manage your pain that don?t involve prescription opioids. Some of these options may actually work better and have fewer risks and side effects. Options may include: ? Pain relievers such as acetaminophen, ibuprofen, and naproxen ? Some medication that are also used for depression or seizures ? Physical therapy and exercise ? Cognitive behavioral therapy, a psychological, goal-directed approach, in which patients learn how to modify physical, behavioral, and emotional triggers of pain and stress. IF YOU ARE PRESCRIBED OPIOIDS FOR PAIN: ? Never take opioids in greater amounts or more often than prescribed. ? Follow up with your primary health care provider. o Work together to create a plan on how to manage your pain. o Talk about ways to help manage your pain that don?t involve prescription opioids. o Talk about any and all concerns and side effects. ? Help prevent misuse and abuse o Never sell or share prescription opioids. o Never use another person?s prescription opioids. ? Store prescription opioids in a secure place and out of reach of others (this may include visitors, children, friends, and family). ? Safely dispose of unused prescription opioids: Find your community drug take-back program or your pharmacy mail-back program, or flush them down the toilet, following guidance from the Food and Drug Administration (www.fda.gov/Drugs/Re sourcesForYou). ? Visit www.cdc.gov/drugoverd ose to learn about the risks of opioids abuse and overdose. ? If you believe you may be struggling with addiction, tell your health manager progressive care and ask for guidance or call [facility] National Helpline at 0-080-486-BNKF. v Source: US Department of Health and Human Services/Center for Disease Cont (more content not included)... [facility] Workers Comp Formson 024 Workers Comp Forms [id number] [facility] XR Forearm 2 Views Righton 0 07-17-2023 XR Forearm 2 Views Right Exam Date/Time: 07/17/2023 11:39 EST Reason for Exam: Pain, Traumatic Report IMPRESSION: No acute osseous findings. EXAMINATION/TECHNIQUE : XR Forearm 2 Views Right HISTORY: Right forearm pain. COMPARISON: None RESULT: No evidence for acute fracture involving the right forearm. Alignment at the wrist and elbow appears maintained. Soft tissue edema. No other significant abnormality. Ordering Provider: Dylon Morfin FINAL REPORT Dictated: 07/17/2023 1:03 pm Robbie Glez MD Signed (Electronic Signature): 07/17/2023 1:03 pm Signed by: Robbie Glez MD Transcribed by: ZBIGNIEW Technologist: SAHIL Technical Comments Radiation Dose: narda Beard in mGy = na DAP = na Normal [facility] [id number] 05-29-2023 SARS-CoV-2 (COVID-19) RNA JAHAIRA+probe Ql (Unsp spec) Not detected Normal [facility] Comment on above: Result Comment: Rapid NAAT: The specimen is NEGATIVE for SARS-CoV-2, the novel coronavirus associated with COVID-19. The ID NOW COVID-19 assay is designed to detect the virus that causes COVID-19 in patients with signs and symptoms of infection who are suspected of COVID-19. An individual without symptoms of COVID-19 and who is not shedding SARS-CoV-2 virus would expect to have a negative (not detected) result in this assay. Negative results should be treated as presumptive and, if inconsistent with clinical signs and symptoms or necessary for patient management, should be tested with an alternative molecular assay. Negative results do not preclude SARS-CoV-2 infection and should not be used as the sole basis for patient management decisions. Fact sheet for Healthcare Providers: https://www.fda.gov/media/375149/download Fact sheet for Patients: https://www.fda.gov/media/713248/download Methodology: Isothermal Nucleic Acid Amplification Performed By: #### C OVRB #### [facility] [address] [place] [address] [place] [address] Supervisor [employer]: Dc Walker MD Vital Signs Date Time Vital Sign Value Performing Clinician Facility 10-03-2023 12:15-0400 SaO2% (BldA) [Mass fraction] 98 % [facility] 10-03-2023 12:13-0400 Diastolic blood pressure 59 mm[Hg] [facility] 10-03-2023 12:13-0400 Systolic blood pressure 111 mm[Hg] [facility] 10-03-2023 10:55-0400 Body temperature 98.1 [degF] [facility] 10-03-2023 10:55-0400 Heart rate 98 /min [facility] 10-03-2023 10:55-0400 Respiratory rate 18 /min [facility] 07-19-2023 14:40-0500 Body height 182.88 cm BEEF SELECTOR Gabrielle Moreno Work Phone: [facility] 07-19-2023 14:40-0500 Body weight 74.84 kg BEEF SELECTOR Gabrielle Moreno Work Phone: [facility] 07-17-2023 13:06-0500 Diastolic blood pressure 76 mm[Hg] Jeremiah Rooneye [facility] 07-17-2023 13:06-0500 Heart rate 88 /min Jeremiah Brian [facility] 07-17-2023 13:06-0500 Mean blood pressure 92 mm[Hg] Jeremiah Rooneye [facility] 07-17-2023 13:06-0500 Respiratory rate 15 /min Jeremiah Rooneye [facility] 07-17-2023 13:06-0500 SaO2% (BldA) [Mass fraction] 99 % Jeremiah Brian [facility] 07-17-2023 13:06-0500 Systolic blood pressure 125 mm[Hg] Jeremiah Rooneye [facility] 07-17-2023 10:38-0500 Body temperature 98.6 [degF] Jeremiah Rooneye [facility] 07-17-2023 10:38-0500 Diastolic blood pressure 74 mm[Hg] Jeremiah Brian [facility] 07-17-2023 10:38-0500 Heart rate 91 /min Jeremiah Brian [facility] 07-17-2023 10:38-0500 Respiratory rate 18 /min Jeremiah Brian [facility] 07-17-2023 10:38-0500 SaO2% (BldA) [Mass fraction] 98 % Jeremiah Brian [facility] 07-17-2023 10:38-0500 Systolic blood pressure 123 mm[Hg] Jeremiah Torres [facility] 12-25-2019 00:10-0400 BP Diastolic 85 mm[Hg] [facility] [place] 12-25-2019 00:10-0400 BP Systolic 120 mm[Hg] [facility] [place] 12-25-2019 00:10-0400 Pulse (Heart Rate) 84 /min [facility] [place] 12-25-2019 00:10-0400 Pulse Oximetry 100 % [facility] [place] 12-25-2019 00:10-0400 Respiratory Rate 16 /min [facility] [employer], [place] 12-24-2019 23:31-0400 Body Temperature 98.01 [degF] [facility], [place] Encounters Encounter Date Encounter Type Care Provider Facility Start: 10-03-2023 End: 10-03-2023 Emergency department patient visit [facility] Start: 10-03-2023 End: 10-03-2023 Emergency department patient visit [facility] ED Comment on above: Strep pharyngitis (P rimary Dx) Start: 09-21-2023 End: 09-21-2023 ambulatory NON STAFF Facility:[facility] Start: 09-21-2023 End: 09-21-2023 ambulatory NON STAFF [facility] Work Phone: Start: 09-21-2023 End: 09-21-2023 Patient encounter procedure BEEF SELECTOR Gabrielle Moreno Work Phone: [facility] [address] Work Phone: Start: 09-17-2023 End: 10-17-2023 ambulatory [facility] Start: 08-28-2023 End: 09-17-2023 ambulatory [facility] Start: 08-24-2023 End: 08-24-2023 ambulatory NON STAFF [facility] Work Phone: Start: 08-24-2023 End: 08-24-2023 Patient encounter procedure BEEF SELECTOR Gabrielle Josh Work Phone: [facility] [address] Work Phone: Start: 08-07-2023 End: 08-17-[address] [facility] Start: 08-03-2023 End: 08-03-2023 ambulatory NON STAFF Facility:[facility] Start: 08-03-2023 End: 08-03-2023 ambulatory NON STAFF [facility] Work Phone: Start: 08-03-2023 End: 08-03-2023 Patient encounter procedure BEEF SELECTORLinda Moreno Work Phone: [facility] [address] Work Phone: Start: 07-27-2023 End: 07-27-2023 ambulatory Ghazala Bansal Facility:[facility] Start: 07-27-2023 End: 07-27-2023 ambulatory NON STAFF [facility] Work Phone: Start: 07-27-2023 End: 07-27-2023 Patient encounter procedure BEEF SELECTOR Gabrielle Josh Work Phone: [facility] [address] Work Phone: Start: 07-24-2023 End: 07-24-2023 ambulatory NON STAFF Facility:[facility] Start: 07-24-2023 End: 07-24-2023 ambulatory NON STAFF [facility] Work Phone: Start: 07-24-2023 End: 07-24-2023 Patient encounter procedure BEEF SELECTOR Gabrielle Moreno Work Phone: [facility] [address] Work Phone: Start: 07-19-2023 End: 07-19-2023 ambulatory NON STAFF Facility:[facility] Start: 07-19-2023 End: 07-19-2023 ambulatory BEEF SELECTOR Gabrielle Moreno Work Phone: [facility] Work Phone: Start: 07-19-2023 End: 07-19-2023 Departed Referred BEEF SELECTOR Gabrielle Moreno Work Phone: [facility] Work Phone: Start: 07-19-2023 End: 07-19-2023 Patient encounter procedure BEEF SELECTOR Gabrielle Moreno Work Phone: [facility] Work Phone: Start: 07-19-2023 End: 07-19-2023 Patient encounter procedure MAITE Moreno Work Phone: [facility] Start: 07-17-2023 End: 07-17-2023 Emergency department patient visit Jeremiah Torres Facility:[facility] Start: 07-17-2023 End: 07-17-2023 Emergency department patient visit Jeremiah Torres [facility] Start: 05-29-2023 End: 05-29-2023 Emergency department patient visit [facility] Start: 11-09-2021 End: 11-09-2021 ambulatory BRYCE RODRIGUEZ Facility: Start: 12-24-2019 End: 12-25-2019 Emergency department patient visit Brian Nichole Aiden Work Phone: [facility] ED Comment on above: Strain of right shou lder, initial encounter (Primary Dx) Procedures Date Procedure Procedure Detail Performing Clinician Start: 10-03-2023 COVID-19, RAPID Pallavi Castellano MD Work Phone: Start: 10-03-2023 End: 10-03-2023 Iaad ia streptococcus group a Pallavi Castellano MD Work Phone: Start: 07-19-2023 Plain X-ray of right wrist BEEF SELECTOR Gabrielle Moreno Work Phone: Plan of Treatment Date Care Activity Detail Author Start: 03-24-2024 DTaP/Tdap/Td vaccine (2 - Td or Tdap) DTaP/Tdap/Td vaccine (2 - Td or Tdap) [facility] Start: 01-17-2024 Influenza vaccination Flu vacc ine (Season Ended) [facility] Start: 02-17-2020 Influenza vaccination Flu vaccine (# 1) [place] Start: 2007 DTaP/Tdap/Td vaccine (1 - Tdap) DTaP/Tdap/Td vaccine (1 - Tdap) [place] Start: 2006 Hepatitis C screening Hepatitis C sc reen [facility] Start: 2003 HIV screening HIV screen [facility] Start: 2000 Depression Screen Depression Screen [facility] Start: 1994 Pneumococcal 0-64 ye ars Vaccine (1 of 1 - PPSV23) Pneumococcal 0-64 years Vaccine (1 of 1 - PPSV23) [place] Start: 1994 Pneumococcal 0-64 ye ars Vaccine (1 of 2 - PCV) Pneumococcal 0-64 years Vaccine (1 of 2 - PCV) [facility] Start: 1989 Varicella vaccine (1 of 2 - 2-dose childhood series) Varicella vaccine (1 of 2 - 2-dose childhood series) [facility] Start: 1988 COVID-19 Vaccine (#1) COVID-19 Vacci ne (#1) [facility] Start: 1988 Hepatitis B vaccine (1 of 3 - 3-dose series) Hepatitis B vaccine (1 of 3 - 3-dose series) [facility] Immunizations Immunization Date Immunization Notes Care Provider Sonia helton 03-24-2014 tetanus toxoid, redu sonam diphtheria toxoid, and acellular pertussis vaccine, adsorbed Jeremiah Torres [facility] Payers Date Payer Category Payer Unknown 2023 Unknown [id number] 2023 Worker's Compensation [id number] 2022 Unknown [id number] 2020 Worker's Compensation [id number] 2019 Unknown [facility] [id number] xxxxxxxxxx 2019-Present [address] [address] [place] [address] xxxxxxxxxx [id number] 1988 Unknown [id number] 93 1988 Unknown [id number] 73 1988 Unknown [id number] 73 1988 Unknown [id number] 27 1988 Unknown [id number] 286 1988 Unknown [id number] 286 1988 Unknown [id number] 286 1959 Self-pay Unknown [id number] Unknown [id number] 31 Unknown [id number] 31 Unknown [id number] 31 Unknown [id number] 31 Unknown [id number] 31 Unknown [id number] 31 Social History Date Type Detail Facility Start: 12-24-2019 Tobacco smoking stat us [facility] Current every day smoker [facility] [employer] History of tobacco use Cigarette Smoker [place] Start: 12-24-2019 End: 05-29-2023 Cigarettes smoked current (pack per day) - Reported [place], [place] Start: 12-24-2019 End: 10-03-2023 Alcohol intake Current non-drinker of alcohol (finding) [place], [place] Start: 1988 Sex Assigned At Not on file [place] Exposure to SARS-CoV -2 (event) Unable to assess [place], [place] Start: 07-17-2023 Tobacco smoking status Heavy t obacco smoker (finding) [facility] Start: 05-29-2023 Sex Assigned At Male [facility] Start: 1990 Sex Assigned At Male [facility] Start: 12-24-2019 Tobacco use and exposure Former smokeless tobacco user [facility] [employer] Functional Status Date Assessment Result Facility 07-17-2023 Functional Status N/A [facility] Hospital Discharge instructions 07-17-2023 Note Date & Type Note Facility 07-17-2023 Hospital Discharg e instructions Patient Education 07/17/2023 13:06:54 Crush Injury of the Hand Crush Injury of the Hand When a crush injury of the hand occurs, many structures within the hand and wrist can be affected. This can result in a complicated injury that may involve: One or more broken (fractured) bones. Lacerations or abrasions of the skin. These increase your risk of infection. Compressed or torn muscles. Torn ligaments and tendons. Broken blood vessels, causing bleeding within the tissues. This can lead to dangerously high pressure within the tissues (compartment syndrome). Damage to nerves. One or more finger amputations. What are the causes? This type of injury can happen when a great amount of force is suddenly applied to the hand. This might occur: During a motor vehicle accident. If a heavy load falls directly onto the hand. If the hand is pulled into a machine during industrial or agricultural work. What are the signs or symptoms? Symptoms will vary depending on which structures in your hand have been injured. Symptoms may include: Moderate or severe pain in the hand, wrist, or arm. Bleeding at the site of injury. Tingling, numbness, or loss of feeling (sensation) in part or all of your hand. Loss of movement in part or all of your hand. How is this diagnosed? Your health care provider will examine you and ask questions about how your injury happened. The exam may include checking for sensation and blood flow into your hand. You may also have tests, including X-rays and procedures to check the pressure in your hand. After initial treatment, additional tests may be done to further diagnose the extent of your injuries. These may include: A nerve conduction study to determine how well the nerves are working in your arm and hand. An MRI to determine if other injuries occurred that do not usually show up on an X-ray. How is this treated? Treatment for this condition depends on the severity of your crush injury. Treatment may include: A thorough cleaning if you have an open wound. This may or may not require surgery. Having a splint applied to your fingers, hand, or forearm. Medicine to relieve pain. Antibiotic medicine to prevent infection. Stitches (sutures) to close open wounds. One or more surgeries to address injuries to skin, bones, joints, tendons, ligaments, muscles, nerves, or blood vessels. Follow these instructions at home: If you have a splint: Wear the splint as told by your health care provider. Remove it only as told by your health care provider. Do not put pressure on any part of the splint until it is fully hardened. This may take several hours. Loosen the splint if your fingers tingle, become numb, or turn cold and blue. Keep the splint clean. If the splint is not waterproof: ?Do not let it get wet. ?Cover it with a watertight covering when you take a bath or shower. Wound care If you have any skin wounds that were covered with bandages (dressings), follow instructions from your health care provider about how to take care of your wound. Make sure you: ?Wash your hands with soap and water before and after you change your dressing. If soap and water are not available, use hand care manager. ?Change your dressing as told by your health care provider. ?Leave stitches (sutures), skin glue, or adhesive strips in place. These skin closures may need to stay in place for 2 weeks or longer. If adhesive strip edges start to loosen and curl up, you may trim the loose edges. Do not remove adhesive strips completely unless your health care provider tells you to do that. If you have skin wounds, check them every day for signs of infection. Check for: ?More redness, swelling, or pain. ?More fluid or blood. ?Warmth. ?Pus or a bad smell. Managing pain, stiffness, and swelling If directed, put ice on the injured area. ?Put ice in a plastic bag. ?Place a towel between your skin and the bag. ?Leave the ice on for 20 minutes, 2 3 times a day. Raise (elevate) the injured area above the level of your heart while you are sitting or lying down. Driving Ask your health care provider: ?If the medicine prescribed to you requires you to avoid driving or using heavy machinery. ?When it is safe to drive if you have a splint on your hand or arm. Activity Return to your normal activities as told by your health care provider. Ask your health care provider what activities are safe for you. Work with a physical therapist (PT) or occupational therapist (OT) as told by your health care provider. General instructions Take kekn-pcd-pmudfff and prescription medicines only as told by your health care provider. If you were prescribed an antibiotic, take it as told by your health care provider. Do not stop taking the antibiotic even if you start to feel better. Do not use any products that contain nicotine or tobacco, such as cigarettes, e-cigarettes, and chewing tobacco. These can delay healing. If you need help quitting, ask your health care provider. Keep all follow-up visits as told by your health care provider. This is important. These include PT and OT visits. Contact a health care provider if: A wound that was sutured opens up. You have more redness, swelling, or pain in your hand. You have more fluid or blood coming from your hand. Your hand feels warm to the touch. You have pus or a bad smell coming from your hand. You have a fever. Get help right away if: You suddenly develop severe pain in your hand. You previously had sensation in your hand and you suddenly lose sensation. Your wrist or hand becomes bent (contracted)involuntarily. Your symptoms had improved and they suddenly get worse. Your hand or fingers are turning pink or blue. Summary When a crush injury of the hand occurs, many structures within the hand and wrist can be affected. Symptoms will vary depending on which structures in your hand have been injured. Treatment for this condition depends on the severity of your crush injury. This information is not intended to replace advice given to you by your health care provider. Make sure you discuss any questions you have with your health care provider. Document Revised: 09/22/2021 Document Reviewed: 09/22/[address] [employer] Patient Education 2022 [employer]. Follow Up Care 07/17/2023 10:31:30 With:Occupational Health: [facility] [phone] Address:Unknown When:07/20/2023 12:45:06 [facility] Evaluation + Plan note 07-17-2023 Note Date & Type Note Facility 07-17-2023 Evaluation + Plan note Extrac cristino from: Title:ED Note Author:Dylon Mofrin PA-C te:07/17/23 Crush injury forearm (S57.80 XA: Crushing injury of unspecified forearm, initial encounter) Orders: ibuprofen, 600 mg = 1 tab(s), Tab, Oral, Once, Stop date 07/17/23 12:45:00 EST, STAT, Start date 07/17/23 12:45:00 EST, 07/17/23 12:45:00 EST naproxen, 500 mg = 1 tab(s), Oral, BID, # 20 tab(s), Refills(s) 0 Splint Application Wrist XR Forearm 2 Views Right [facility] Evaluation note Note Date & Type Note Facility Evaluation note No assessment information [facility] Work Phone: Evaluation note Note Date & Type Note Facility Evaluation note Diagnosis Strep pharyngitis- Primary Streptococcal sore throat documented in this encounter [facility] course Narrative Note Date & Type Note Facility Hospital course Narrative No data available for this section [facility] Hospital Discharge instructions Attachments Note Date & Type Note Facility Hospital Discharge instructions The following attachments cannot be sent through Care Everywhere.Strep Throat ([place])documented in this encounter [facility] Progress note Note Date & Type Note Facility Progress note No data available for this section [facility] Discharge Instructions * Instructions* Brian Wolfe MD - 12/24/2019 Please take all medications as prescribed. If you have received narcotic medications (pain killers) while in the Emergency Room you are NOT todrive yourself home today, you need to find a ride, take the bus or call a cab. Please do not drive, operate machinery or engage in any activities that requrie concentration and where safety could be an issue while taking narcotic medications (pain killers). Please follow up with your primary care physician by calling today, or as soon as possible, for thefirst available appointment. If you do not have a primary care physician, please contact a physician or clinic listed below today to establish care. Please return to the emergency department IMMEDIATELY if you develop uncontrolled fevers, uncontrolled vomiting, change in symptoms, worsening of symptoms, or ANY other concerns. * Attachments The following attachments cannot be sent through Care Everywhere. 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 Advance Directives and Living Will Power of Crtts Advance Directive Response Recorded Date/ Time Advance Directives No July 20, 2023 5:16pm Advance Directive Response Recorded Date/ Time Advance Directives No July 20, 2023 6:16pm Summary Purpose Family History No Family History Records Found Relationship Condition Age at Onset Recorded Date/T kendra Not Specified Malignant neoplasm Unknown Chief Complaint and Reason for Visit Chief Complaint [facility] Initial Right Angel nd/Forearm Injury S67.21XA S67.21XA Chief Complaint [facility] Initial Right Angel nd/Forearm Injury S67.21XA S67.21XA S67.21XA S50.11XA, S58.81XA Chief Complaint [facility] Initial Right Angel nd/Forearm Injury S67.21XA S67.21XA S67.21XA S50.11XA S50.11XA, S57.81XA Chief Complaint [facility] Initial Right Angel nd/Forearm Injury S67.21XA S67.21XA S67.21XA S50.11XA S50.11XA, S57.81XA S50.11XA Additional Source Comments Reason for Visit (unrecogniz ed section and content) Reason Comments Shoulder Injury Right shoulder injur y on sunday, seen in another ED sunday night. Increase in pain today Reason Comments Headache Headache ongoing for the past 2 weeks. Sore throat starting Sunday night. Cough, congestion. (unrecognized sect ion and content) No Status Records FoundNo Status Records FoundNo Status Records FoundNo Status Records FoundNo Status Records Found INFORMATION SOURCE (unrecogn ized section and content) DATE CREATED AUTHOR 11/10/2021 [facility] DATE CREATED AUTHOR AUTHOR'S ORGANIZ ATION 10/02/2023 [facility] DATE CREATED AUTHOR AUTHOR'S ORGANIZ ATION 10/04/2023 [facility] DATE CREATED AUTHOR AUTHOR'S ORGANIZ ATION 10/07/2023 [facility] DATE CREATED AUTHOR AUTHOR'S ORGANIZ ATION 10/18/2023 [facility] Care Teams (unrecognized sec tion and content) Team Status: Active Member Role Status Dates NON STAFF Primary Care Provider Active Team Status: Inactive Member Role Status Dates Gabrielle Moreno APRN Attending Provider Active Start: July 19, 2023 End: July 19, 2023 Team Status: Inactive Member Role Status Dates Gabrielle Moreno APRN Attending Provider Active Start: July 19, 2023 End: July 19, 2023 NON STAFF Primary Care Provider Active Start: July 19, 2023 End: July 19, 2023 Team Status: Inactive Member Role Status Dates NON STAFF Primary Care Provider Active Start: July 24, 2023 End: July 24, 2023 Ghazala Bansal APRN Attending Provider Active Start: July 24, 2023 End: July 24, 2023 Team Status: Inactive Member Role Status Dates Gabrielle Moreno APRN Attending Provider Active Start: July 19, 2023 End: July 19, 2023 Goals (unrecognized section and content) Goals may be documented in a n alternate section Ordered Prescriptions (unrec ognized section and content) Prescription Sig Dispensed Refills Start Date End Da te ibuprofen (IBU) 600 MG tablet Take 1 tablet by mouth every 6 hours as needed for Pain 120 tablet 0 10/03/2023 azithromycin (ZITHROMAX) 250 MG tablet Take 2 tablets by mouth daily for 5 days 10 tablet 0 10/03/2023 10/08/2023 FOR RECORDS PERTAINING TO PATIENTS WHO ARE OR HAVE BEEN ENROLLED IN A CHEMICAL DEPENDENCY/SUBSTANCEABUSE PROGRAM, SOME INFORMATION MAY BE OMITTED. This clinical summary was aggregated from multiple sources. Caution should be exercised in using it in the provision of clinical care. This summary normalizes information from multiple sources, and as a consequence, information in this document may materially change the coding, format and clinical context of patient data. In addition, data may be omitted in some cases. CLINICAL DECISIONS SHOULD BE BASED ON THE PRIMARY CLINICAL RECORDS. [facility] [employer] provides no warranty or guarantee of the accuracy or completeness of information in this document.
[2023-11-15 07:35] VITALS: PULSE 107
--- NOTE | 2023-11-15 08:11 | ED.UPPEXIN1 ---
HPI HPI - Extremity Injury (Upper) General Chief Complaint: Extremity Injury, Upper Stated Complaint: LEFT UPPER EXTREMITY PAIN FOLLOWING FALL Time Seen by Provider: 11/15/23 08:11 Source: patient Mode of arrival: walk-in History of Present Illness HPI narrative: This patient is here for evaluation of a left hand injury. I believe he is right-handed dominant. This event 2 weeks ago. He was on a friend's boat fell on the anchor and then his weight landed on top of him. He has not had x-ray previously. The most of the discomfort is over the dorsum of the left proximal metatarsal metacarpal area. He does not have any pain in his forearm or the elbow area. No other subsequent injury since that time. Related Data Home Medications ?Medication ?Instructions ?Recorded ?Confirmed ibuprofen 200 mg tablet (Advil) 200 mg PO Q8H PRN fever or pain 04/24/23 04/24/23 Allergies Allergy/AdvReac Type Severity Reaction Status Date / Time acetaminophen Allergy Intermediate Rash Verified 04/24/23 10:05 [From Vicks NyQuil Cold/Flu Liquicap] dextromethorphan Allergy Intermediate Rash Verified 04/24/23 10:05 [From Vicks NyQuil Cold/Flu Liquicap] doxylamine Allergy Intermediate Rash Verified 04/24/23 10:05 [From Vicks NyQuil Cold/Flu Liquicap] pcn Allergy Intermediate Hives Uncoded 04/24/23 10:05 vicodin Allergy Mild Migraine Uncoded 04/24/23 10:05 Opioid HPI Opioid Management Most Recent Pain and Opioid Data: Last Pain Scale 6 11/15/23 07:35 PFSH PFSH Social History Smoking status: Current some day smoker Exam Narrative Exam Narrative: After triage by the nursing staff he was sent for x-rays of his left hand. Clinical examination does not show any ecchymosis bruising or deformity. He has a little bit of restriction of motion with flexion extension at the wrist area. There is no tenderness over the digits or the thumb itself. Neurovascular examination exam of the wrist is normal. The forearm and the elbow area are asymptomatic. Constitutional Vital Signs, click to edit/add: Last Vital Signs Temp 98.1 F 11/15/23 07:29 Pulse 107 H 11/15/23 07:35 Resp 18 11/15/23 07:29 BP 122/80 11/15/23 07:29 Pulse Ox 98 11/15/23 07:29 O2 Del Method Room Air 11/15/23 07:29 Course Vital Signs Vital signs: Vital Signs Temperature 98.1 F 11/15/23 07:29 Pulse Rate 97 H 11/15/23 07:29 Respiratory Rate 18 11/15/23 07:29 Blood Pressure 122/80 11/15/23 07:29 Pulse Oximetry 98 11/15/23 07:29 Oxygen Delivery Method Room Air 11/15/23 07:29 Temperature 98.1 F 11/15/23 07:29 Pulse Rate 107 H 11/15/23 07:35 Respiratory Rate 18 11/15/23 07:29 Blood Pressure 122/80 11/15/23 07:29 Pulse Oximetry 98 11/15/23 07:29 Oxygen Delivery Method Room Air 11/15/23 07:29 MDM - Extremity Injury (Upper) MDM Narrative Medical decision making narrative: X-rays of the wrist and hand area do not show any obvious abnormality. He has continued discomfort and so this would suggest a ligamentous injury. We will place him in an immobilizing device and have him follow-up with local orthopedic doctor at our clinic if necessary. Discharge Plan Discharge Stand Alone Forms: Portal Instructions Chief Complaint: Extremity Injury, Upper Clinical Impression: Left wrist sprain Patient Disposition: Home, Self-Care Time of Disposition Decision: 08:13 Prescriptions / Home Meds: No Action ibuprofen [Advil] 200 mg tablet 200 mg PO Q8H PRN (Reason: fever or pain) Print Language: Maltese Additional Instructions: Wear splint for 10 to 12 days. Follow-up with our orthopedic clinic. May use occasional [id number] NSAIDs for discomfort Referrals: Physician,Non-Staff, MD [Primary Care Provider] - 1 week
== END 2023-11-15 08:26 | disposition home or self-care (01) ==
PROVIDERS: Emergency Provider Emergency Medicine Emergency Medical Services
DX: S63.502A Unspecified sprain of left wrist, initial encounter (principal); W19.XXXA Unspecified fall, initial encounter
CPT/HCPCS: 73130; 99283

== ENCOUNTER 2023-12-04 08:20 | Outpatient (OUT) | payer BC, SELFPAY ==
--- NOTE | 2023-12-04 08:23 | MR_ITS ---
The [address] [address] Patient Name: REFUGIO POSADAS MRN: [id number] date: 1990 Sex: M Assigned Patient Location: MRI Current Patient Location: Accession/Order Number: [id number] Exam Date: 12/04/2023 08:45 Report Date: 12/06/2023 09:22 At the request of: RICHARD YADAV Procedure: MR hand LT wo con EXAM: MR hand LT wo con REASON FOR EXAM: Left Hand Pain M79.642. TECHNIQUE: Multiplanar, multisequence imaging of the left hand was performed without contrast COMPARISON: Radiographs 11/15/2023. FINDINGS: Study degraded by motion. The visualized bone marrow signal is without acute fracture or osteonecrosis. Mild osteoarthritis of the triscaphe joint. Radiocarpal and intercarpal alignments appear maintained. Minimal joint space narrowing of the first CMC joint. There is mild dorsal synovitis at the level of the wrist. No discrete flexor or extensor tendon injury is evident. The carpal tunnel is patent. Minimal volar subluxation of the second MCP joint, this could be positional. A discrete fracture not identified. The dorsal capsular ligaments appear somewhat thin and attenuated potentially reflecting capsular injury. Again no discrete fracture is not evident. MR/MR hand LT wo con IMPRESSION: 1. Possible capsular sprain of the second MCP joint with mild volar subluxation along the dorsal aspect. Discrete fracture not evident. Electronically authenticated by: SYLVIA JUDGE Date: 12/06/2023 09:22
== END 2023-12-04 08:21 | disposition home or self-care (01) ==
LOC: MRI 08:20
PROVIDERS: Visit Provider Orthopaedic Surgery
DX: M79.642 Pain in left hand (principal)
CPT/HCPCS: 73218

== ENCOUNTER 2024-01-08 12:52 | Emergency (ER) | payer BC, SELFPAY ==
[2024-01-08 12:55] VITALS: BP 107/75; PULSE 88; TEMP 36.8; BMI 3222.4
--- OUTSIDE RECORDS SUMMARY | 2024-01-08 13:08 | XMS_ITS | CCD ---
Author Organization [facility] Care Team Providers Care Phone Engineer Name Role Phone Unavailable Primary Care Provider UnavailBRYCE Mccord Attending Unavailable BRYCE RODRIGUEZ Consulting Unavailable BRYCE RODRIGUEZ Admitting Unavailable REQUEST, NONE LISTED Primary Care Unavaila ble NONE, XXXX Primary Care Physician Unavailab MAITE Palm Attending Provider NON STAFF Primary Care Provider Unavailradha Bansal APRN Ghazala Christine Attending Provider MAITE Moreno Attending Provider NON STAFF Primary Care Provider Unavailradha Bansal APRN Ghazala Christine Attending Provider MAITE Bansal Ghazala D Attending Provider NON STAFF Primary Care Unavailable Bansal, Ghazala [...] Translations: [HYDROCODONE-ACETAM INOPHEN] Drug Allergy 04-25-20 18 [place], [place] (9 sources) Penicillins; Translations: [penicillins] Propensity to adverse reactions to drug 01-15-20 17 Anaphylaxis [place], [place] (1 source) Acetaminophen / HYDROcodone Drug Allergy 04-22-20 17 [facility] (1 source) Acetaminophen / Pseudoephedrine Drug Allergy 12-13-19 17 [facility] (1 source) diphenhydrAMINE Drug Allergy [facility] (1 source) Penicillins Drug allergy (disorder) 07-16-19 14 [facility] (2 sources) NyQuil; Translations: [NYQUIL] Drug allergy (disorder) 12-13-19 17 [facility] (6 sources) Acetaminophen; Translations: [acetaminophen] Drug Allergy 07-19-19 24 migraine, [facility] (6 sources) Dextromethorphan; Translations: [dextromethorphan] Drug Allergy 07-19-19 24 [facility] (6 sources) diphenhydrAMINE; Translations: [diphenhydramine] Drug Allergy 07-19-19 [facility] (6 sources) Doxylamine; Translations: [doxylamine] Drug Allergy 07-19-19 [facility] (6 sources) HYDROcodone; Translations: [hydrocodone] Drug Allergy 07-19-19 [facility] (6 sources) Pseudoephedrine; Translations: [pseudoephedrine] Drug Allergy 07-19-19 24 [facility] (1 source) Penicillins Drug allergy (disorder) 07-19-19 [facility] Repository (1 source) Penicillins Propensity to adverse reactions to drug 01-15-20 17 Anaphylaxis [facility] (1 source) diphenhydrAMINE; Translations: [DIPHENHYDRAMINE HCL] Drug Allergy 04-09-20 [facility] Repository (1 source) AMMIFGWNDNU-OE-IOIU AMINOPHEN; Translations: [NRPPPPYMNCS-GF-DUM TAMINOPHEN] Propensity to adverse reactions to drug [...] tablet 0 12/24/2019 10/03/2023 Discontinued (LIST CLEANUP) [id number] 200 actuat albuterol 0.09 mg/actuat metered dose [...] symptoms improve. 1 Inhaler 0 01/14/2017 Active Fvqeghl-Cgnkruetplzqi-Ibjwpz ne (EXCEDRIN MIGRAINE PO) (1 source) Aspirin-Acetamin [...] Test Name Value Interpretation Reference Range Facil it COVID-19, Rapidon 10-03-2023 SARS-CoV-2 (COVID-19) RdRp gene JAHAIRA+probe Ql (Resp) Not detected Not Detected [facility] Comment on above: Rapid NAAT: The specimen [...] management decisions. Fact sheet for Healthcare Providers: https://www.fda.gov/media/784419/download Fact sheet for Patients: https://www.fda.gov/media/843586/download Methodology: Isothermal Nucleic Acid Amplification Specimen Description .NASOPHARYNGEAL SWAB [facility] Flu A/B Ag Detectionon 10-02 Flu A Ag Detection Negative Normal NEG [facility] Comment on above: Result Comment: for Influenza A Antigen Performed By: #### F LUABA #### [facility] [address] [place] [address] Digital Marketing Lead: Dc Walker MD Flu B Ag Detection Negative Normal NEG [facility] Comment on above: Result Comment: for Influenza B Antigen. Performed By: #### F LUABA #### [facility] [address] [place] [address] Digital Marketing Lead: Dc Walker MD Rapid Strep Screenon 024 Interpretation and review of laboratory results Abnormal [facility] Specimen source Nom (Unsp spec) .THROAT SWAB [facility] Strep A, Molecular 0.1 Abnormal NEGATIVE [facility] Rapid influenza A/B antigens on 10-03-2023 FLUAV Ag Ql (Unsp spec) Negative NEGATIVE [facility] Comment on above: for Influenza A Anti gen FLUBV Ag Ql (Unsp spec) Negative NEGATIVE [facility] Comment on above: for Influenza B Anti gen. [facility] EXOH-KgQ-6ga 10-03-2023 SARS-CoV-2 (COVID-19) RNA JAHAIRA+probe Ql (Unsp spec) Not detected Normal NOTPAT [facility] Comment on above: Result Comment: Rapid [...] management decisions. Fact sheet for Healthcare Providers: https://www.fda.gov/media/884401/download Fact sheet for Patients: https://www.fda.gov/media/414182/download Methodology: Isothermal Nucleic Acid Amplification Performed By: #### C OVRB #### [facility] [address] [place], [place] [id number] Digital Marketing Lead: Dc Walker MD Strep Group A, Rapidon 10-02 Strep A, Molecular .1 Abnormal NEG [facility] Comment on above: Performed By: #### R SAB #### [facility] [address] [place] [address] Digital Marketing Lead: Dc Walker MD Source .THROAT SWAB Normal [facility] Comment on above: Performed By: #### R SAB #### [facility] [address] [place] [address] Digital Marketing Lead: Dc Walker MD XR wrist RT min 3V*on 2023 XR wrist RT min 3V* [facility] [place] [address] XRay Report Signed Patient: Refugio Posadas MR#: [id number] : 1990 Acct:[id number] Age/Sex: 33 / M ADM Date: 07/19/23 Loc: [facility] Room: Type: [facility] Attending Dr: Gabrielle Moreno APRN Copies [...] Laura Sewell M.D.07/19/2023 3:52 PM Dictation Location: [place] [address] Transcribed By: [facility] 07/19/231551 Dictated By: Laura Sewell MD 07/19/231549 Signed By: 07/19/231551 Normal [facility] Consent for Treatmenton 06-20 Consent for Treatment [id number] .[id number] Normal [facility] Discharge Instructionson Discharge Instructions [id number] .[id number] Normal [facility] ED Clinical Summaryon 2023 ED Clinical Summary [place] [id number] ED Clinical Summary Person Information Name: REFUGIO POSADAS/[facility] Age: 33 Years : 1990 Sex: Male Language: [place] Island[place] PCP: NONE, XXXX Marital Status: Single Visit [...] 07/17/2023 13:06:54 07/17/2023 13:06:54 07/17/2023 13:06:54 ADDRESS: [address] [place] [address] [address] [facility] [id number] [facility] DOC NOTES: MEDICAL INFORMATION: Prescriptions Given: New Medications Printed Prescriptions naproxen (Naprosyn 500 mg Tab) 1 Tablets By Mouth 2 times a day. Refills: 0. PATIENT EDUCATION INFORMATION: Instructions: Crush Injury of the Hand Follow up: With: Address: When: Occupational Health: [facility] [phone] In 3 days 07/20/2023 DIAGNOSIS: Crush injury forearm Normal [facility] ED Note-Physicianon 07-17-19 ED Note-Physician Basic Information Time Seen: Shelbie DE PAZDylon 07/17/2023 10:43 Chief Complaint crankshaft pinned arm in block less than a minute. Rt arm pain and swelling History of Present Illness 33-year-old male comes to the ED for evaluation of right arm pain. 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 Appropriate healthcare PPE [...] = na Signed By: Robbie Glez MD [facility] Comment on above: Result Comment: Elec tronically [...] and water are not available, use hand applications developer. ? Change your dressing as told by [...] health care provider. General instructions ? Take yqrr-osp-ptmecec and prescription medicines only as told by your health care provider. ? If you were prescribed an antibiotic, take it as told by your health care provider. Do not stop taking the antibiotic even if you start to feel better. ? Do not use any products that contain nicotine or (more content not included)... Normal [facility] ED Patient Summaryon 024 ED Patient Summary [place] [id number] Patient Discharge Instructions Person Information Name: REFUGIO POSADAS Age: 33 Years Arrival Date: 07/17/2023 10:28:59 Discharge Diagnosis: Crush injury forearm Primary Care Physician: NONE, XXXX Provider Information Primary Provider: Jeremiah Torres DO [employer] To Door Salesperson:Dylon Morfin PA-C The exam and treatment you received in the Emergency Department were for an urgent problem and are not intended as complete care. It is important that you follow up with a doctor, nurse practitioner, or physician?s podiatrist assistant for ongoing care. If your symptoms become worse or you do not improve as expected and you are unable to reach your usual health care provider, you should return to the Emergency Department. We are available 24 hours a day. REUFGIO POSADAS has been given the following list of patient education materials, prescriptions and follow-up instructions: Follow-up Instructions: With: Address: When: Occupational Health: [facility] [phone] In 3 days 07/20/2023 In the event that this physician does not participate in your insurance network, please consult with your insurance company to find a nearby participating provider. Patient Education Materials: Crush Injury of the Hand A MESSAGE TO ALL PATIENTS REGARDING OPIOIDS PRESCRIPTION OPIOIDS: WHAT YOU NEED TO KNOW Prescription opioids can be used to help relieve yjtfffah-de-axzlht pain and are often prescribed following a [...] be struggling with addiction, tell your health insurance healthcare representative and ask for guidance or call [facility]?S National Helpline at 4-705-916-Konnektid. v Source: [place] Department of Health and Human Services/Center for Disease Cont (more content not included)... Normal [facility] Workers Comp Formson 024 Workers Comp Forms [id number] .[id number] Normal [facility] XR Forearm 2 Views Righton 0 [...] ZBIGNIEW Technologist: SAHIL Technical Comments Radiation Dose: Ka,r in mGy = na DAP = na Normal [facility] NYMA-PwB-2wb 05-29-2023 SARS-CoV-2 (COVID-19) RNA JAHAIRA+probe Ql (Unsp spec) Not detected Normal [facility] Comment on above: Result Comment: Rapid NAAT: [...] management decisions. Fact sheet for Healthcare Providers: https://www.fda.gov/media/978804/download Fact sheet for Patients: https://www.fda.gov/media/267302/download Methodology: Isothermal Nucleic Acid Amplification Performed By: #### C OVRB #### [facility] [address] [place] [address] Digital Marketing Lead: Dc Walker MD Vital Signs Date Time Vital Sign Value Performing Clinician Facility 10-03-2023 12:15-0400 SaO2% (BldA) [Mass fraction] 98 % [facility] 10-03-2023 12:13-0400 Diastolic blood pressure 59 mm[Hg] [facility] 10-03-2023 12:13-0400 Systolic blood pressure 111 mm[Hg] [facility] 10-03-2023 10:55-0400 Body temperature 98.1 [degF] [facility] 10-03-2023 10:55-0400 Heart rate 98 /min [facility] 10-03-2023 10:55-0400 Respiratory rate 18 /min [facility] 07-19-2023 14:40-0500 Body height 182.88 cm CUTTING SUPERVISOR Gabrielle Moreno Work Phone: [facility] 07-19-2023 14:40-0500 Body weight 74.84 kg CUTTING SUPERVISOR Gabrielle Moreno Work Phone: [facility] 07-17-2023 13:06-0500 Diastolic blood pressure 76 mm[Hg] Jeremiah Torres [facility] 07-17-2023 13:06-0500 Heart rate 88 /min Jeremiah Rooneye [facility] 07-17-2023 13:06-0500 Mean blood pressure 92 mm[Hg] Jeremiah Rooneye [facility] 07-17-2023 13:06-0500 Respiratory rate 15 /min Jeremiah Torres [facility] 07-17-2023 13:06-0500 SaO2% (BldA) [Mass fraction] 99 % Jeremiah [facility] 07-17-2023 13:06-0500 Systolic blood pressure 125 mm[Hg] Jeremiah Torres [facility] 07-17-2023 10:38-0500 Body temperature 98.6 [degF] Jeremiah Torres [facility] 07-17-2023 10:38-0500 Diastolic blood pressure 74 mm[Hg] Jeremiah Torres [facility] 07-17-2023 10:38-0500 Heart rate 91 /min Jeremiah Ro[facility]e [facility] 07-17-2023 10:38-0500 Respiratory rate 18 /min Jeremiah Rooneye [facility] 07-17-2023 10:38-0500 SaO2% (BldA) [Mass fraction] 98 % Jeremiah Torres [facility] 07-17-2023 10:38-0500 Systolic blood pressure 123 mm[Hg] Jeremiah Torres [facility] 12-25-2019 00:10-0400 BP Diastolic 85 mm[Hg] [facility] [place] 12-25-2019 00:10-0400 BP Systolic 120 mm[Hg] [facility] [place] 12-25-2019 00:10-0400 Pulse (Heart Rate) 84 /min [facility] [place] 12-25-2019 00:10-0400 Pulse Oximetry 100 % [facility] [place] 12-25-2019 00:10-0400 Respiratory Rate 16 /min [facility] 12-24-2019 23:31-0400 Body Temperature 98.01 [degF] [facility] Encounters Encounter Date Encounter Type Care Provider Facility Start: 10-03-2023 End: 10-03-2023 Emergency department patient visit [facility] Start: 10-03-2023 End: 10-03-2023 Emergency department patient visit [facility] ED Comment on above: Strep pharyngitis (P rimary Dx) Start: 09-21-2023 End: 09-21-2023 ambulatory NON STAFF Facility:[facility] Start: 09-21-2023 End: 09-21-2023 ambulatory NON STAFF [facility] Work Phone: Start: 09-21-2023 End: 09-21-2023 Patient encounter procedure CUTTING SUPERVISOR Gabrielle Moreno Work Phone: [facility] [address] Work Phone: Start: 09-17-2023 End: 10-17-2023 ambulatory [facility] Start: 08-28-2023 End: 09-17-2023 ambulatory [facility] Start: 08-24-2023 End: 08-24-2023 ambulatory NON STAFF [facility] Work Phone: Start: 08-24-2023 End: 08-24-2023 Patient encounter procedure CUTTING SUPERVISOR Gabrielle Josh Work Phone: [facility] [address] Work Phone: Start: 08-07-2023 End: 08-17-2023 ambulatory GHAZALA LIRAER [facility] Start: 08-03-2023 End: 08-03-2023 ambulatory NON STAFF Facility:[facility] Start: 08-03-2023 End: 08-03-2023 ambulatory NON STAFF [facility] Work Phone: Start: 08-03-2023 End: 08-03-2023 Patient encounter procedure CUTTING SUPERVISOR Gabrielle Josh Work Phone: [facility] [address] Work Phone: Start: 07-27-2023 End: 07-27-2023 ambulatory Ghazala Liraer Facility:[facility] Start: 07-27-2023 End: 07-27-2023 ambulatory NON STAFF [facility] Work Phone: Start: 07-27-2023 End: 07-27-2023 Patient encounter procedure CUTTING SUPERVISOR Gabrielle Josh Work Phone: [facility] [address] Work Phone: Start: 07-24-2023 End: 07-24-2023 ambulatory NON STAFF Facility:[facility] Start: 07-24-2023 End: 07-24-2023 ambulatory NON STAFF [facility] Work Phone: Start: 07-24-2023 End: 07-24-2023 Patient encounter procedure CUTTING SUPERVISOR Gabrielle Josh Work Phone: [facility] [address] Work Phone: Start: 07-19-2023 End: 07-19-2023 ambulatory NON STAFF Facility:[facility] Start: 07-19-2023 End: 07-19-2023 ambulatory MAITE Moreno Work Phone: [facility] Work Phone: Start: 07-19-2023 End: 07-19-2023 Departed Referred MAITE Moreno Work Phone: [facility] Work Phone: Start: 07-19-2023 End: 07-19-2023 Patient encounter procedure MAITE Moreno Work Phone: [facility] Work Phone: Start: 07-19-2023 End: 07-19-2023 Patient encounter procedure AMITE Moreno Work Phone: [facility]- Start: 07-17-2023 End: 07-17-2023 Emergency department patient visit [facility] Facility:[facility] Start: 07-17-2023 End: 07-17-2023 Emergency department patient visit Jeremiah Brian [facility] Start: 05-29-2023 End: 05-29-2023 Emergency department patient visit [facility] Start: 11-09-2021 End: 11-09-2021 ambulatory BRYCE RODRIGUEZ Facility: Start: 12-24-2019 End: 12-25-2019 Emergency department patient visit Brian Wolfe Work Phone: [facility] ED Comment on above: Strain of right shou lder, initial encounter (Primary Dx) Procedures Date Procedure Procedure Detail Performing Clinician Start: 10-03-2023 COVID-19, RAPID Pallavi Castellano MD Work Phone: Start: 10-03-2023 End: 10-03-2023 Iaad ia streptococcus group a Pallavi Castellano MD Work Phone: Start: 07-19-2023 Plain X-ray of right wrist MAITE Quintanaler Work Phone: Plan of Treatment Date Care Activity Detail Author Start: 03-24-2024 DTaP/Tdap/Td vaccine (2 - Td or Tdap) DTaP/Tdap/Td vaccine (2 - Td or Tdap) [facility] Start: 01-17-2024 Influenza vaccination Flu vacc ine (Season Ended) [facility] Start: 02-17-2020 Influenza vaccination Flu vaccine (# 1) [place] Start: 2007 DTaP/Tdap/Td vaccine (1 - Tdap) DTaP/Tdap/Td vaccine (1 - Tdap) [place] Start: 2006 Hepatitis C screening Hepatitis C sc reen [facility] Start: 2003 HIV screening HIV screen [facility] Start: 2000 Depression Screen Depression Screen [facility] Start: 1994 Pneumococcal 0-64 ye ars Vaccine (1 of 1 - PPSV23) Pneumococcal 0-64 years Vaccine (1 of 1 - PPSV23) [place], [place] Start: 1994 Pneumococcal 0-64 ye ars Vaccine (1 of 2 - PCV) Pneumococcal 0-64 years Vaccine (1 of 2 - PCV) [facility] Start: 1989 Varicella vaccine (1 of 2 - 2-dose childhood series) Varicella vaccine (1 of 2 - 2-dose childhood series) [facility] Start: 1988 COVID-19 Vaccine (#1) COVID-19 Vacci ne (#1) [facility] Start: 1988 Hepatitis B vaccine (1 of 3 - 3-dose series) Hepatitis B vaccine (1 of 3 - 3-dose series) [facility] Immunizations Immunization Date Immunization Notes Care Provider Sonia helton 03-24-2014 tetanus toxoid, redu sonam diphtheria toxoid, and acellular pertussis vaccine, adsorbed Jeremiah Torres [facility] Payers Date Payer Category Payer Unknown 2023 Unknown [id number] 2023 Worker's Compensation [id number] 2022 Unknown [id number] 2020 Worker's Compensation [id number] 2019 Unknown [facility] [id number] xxxxxxxxxx 2019-Present [address] [address] [place] [address] xxxxxxxxxx [id number] 1988 Unknown [id number] 93 1988 Unknown [id number] 73 1988 Unknown [id number] [id number] 73 1988 Unknown [id number] 27 1988 Unknown [id number] 286 1988 Unknown [id number] 286 1988 Unknown [id number] [id number] 286 1959 Self-pay Unknown [id number] Unknown [id number] 31 Unknown [id number] [id number] 31 Unknown [id number] [id number] 31 Unknown [id number] [id number] 31 Unknown [id number] 31 Unknown [id number] 31 Social History Date Type Detail Facility Start: 12-24-2019 Tobacco smoking stat us [facility] Current every day smoker [facility] [employer] History of tobacco use Cigarette [place] Start: 12-24-2019 End: 05-29-2023 Cigarettes smoked current (pack per day) - Reported [place], [place] Start: 12-24-2019 End: 10-03-2023 Alcohol intake Current non-drinker of alcohol (finding) [place] Start: 1990 Sex Assigned At Not on file [place] Exposure to SARS-CoV -2 (event) Unable to assess [place] Start: 07-17-2023 Tobacco smoking status Heavy t obacco smoker (finding) [facility] Start: 05-29-2023 Sex Assigned At Male [facility] Start: 1990 Sex Assigned At Male F [facility] Start: 12-24-2019 Tobacco use and exposure Former smokeless tobacco user [facility] [employer] Functional Status Date Assessment Result Facility 07-17-2023 Functional Status N/A [facility] Discharge instructions 07-17-2023 Note Date [...] and water are not available, use hand applications developer. ?Change your dressing as told by your [...] your health care provider. General instructions Take tqiu-ozh-pxolwac and prescription medicines only as told by [...] provider. Document Revised: 09/22/2021 Document Reviewed: 09/22/2021 [employer] Patient Education 2022 [employer]. Follow Up Care 07/17/2023 10:31:30 With:Occupational Health: [facility] [phone] Address:Unknown When:07/20/2023 12:45:06 [facility] Evaluation + Plan note 07-17-2023 Note Date & Type Note Facility 07-17-2023 Evaluation + Plan note Extrac cristino from: Title:ED Note Author:Dylon Morfin PA-C te:07/17/23 Crush injury forearm (S57.80 XA: Crushing injury of unspecified forearm, initial encounter) Orders: ibuprofen, 600 mg = 1 tab(s), Tab, Oral, Once, Stop date 07/17/23 12:45:00 EST, STAT, Start date 07/17/23 12:45:00 EST, 07/17/23 12:45:00 EST naproxen, 500 mg = 1 tab(s), Oral, BID, # 20 tab(s), Refills(s) 0 Splint Application Wrist XR Forearm 2 Views Right [facility] Evaluation note Note Date & Type Note Facility [facility] Evaluation note Note Date & Type Note Facility Evaluation note Diagnosis Strep pharyngitis- Primary Streptococcal sore throat documented in this encounter [facility] course Narrative Note Date & Type Note Facility Hospital course Narrative No data available for this section [facility] Hospital Discharge instructions Attachments Note Date & Type Note Facility Hospital Discharge instructions The following attachments cannot be sent through Care Everywhere.Strep Throat ([place] Islander)documented in this encounter [facility] Progress note Note Date & Type Note Facility Progress note No data available for this section [facility] Discharge Instructions * Instructions* Brian Wolfe MD [...] sent through Care Everywhere. 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 Advance Directives and Living Will Power of General Operator Advance Directive Response Recorded Date/ Time Advance Directives No July 20, 2023 5:16pm Advance Directive Response Recorded Date/ Time Advance Directives No July 20, 2023 6:16pm Summary Purpose Family History No Family History Records Found Relationship Condition Age at Onset Recorded Date/T kendra Not Specified Malignant neoplasm Unknown Chief Complaint and Reason for Visit Chief Complaint Bwc Initial Right Angel nd/Forearm Injury S67.21XA S67.21XA Chief Complaint Bwc Initial Right Angel nd/Forearm Injury S67.21XA S67.21XA S67.21XA S50.11XA, S58.81XA Chief Complaint Bwc Initial Right Angel nd/Forearm Injury S67.21XA S67.21XA S67.21XA S50.11XA S50.11XA, S57.81XA Chief Complaint Bwc Initial Right Angel nd/Forearm Injury S67.21XA S67.21XA [...] and content) DATE CREATED AUTHOR 11/10/2021 [facility] DATE CREATED AUTHOR AUTHOR'S ORGANIZ ATION 10/02/2023 [facility] DATE CREATED AUTHOR AUTHOR'S ORGANIZ ATION 10/04/2023 [facility] DATE CREATED AUTHOR AUTHOR'S ORGANIZ ATION 10/07/2023 [facility] DATE CREATED AUTHOR AUTHOR'S ORGANIZ ATION 10/18/2023 [facility] Care Teams (unrecognized sec tion and content) [...] BE BASED ON THE PRIMARY CLINICAL RECORDS. [facility] [email or web address] [facility]. provides no warranty or guarantee of the accuracy or completeness of information in this document.
--- NOTE | 2024-01-08 13:21 | XR_ITS ---
The [address] [address] Patient Name: REFUGIO POSADAS MRN: [id number] date: 1990 Sex: M Assigned Patient Location: ER Current Patient Location: ER Accession/Order Number: [id number] Exam Date: 01/08/2024 13:39 Report Date: 01/08/2024 14:03 At the request of: MARCELL BALDERAS Procedure: XR hand LT min 3V PROCEDURE: XR hand LT min 3V HISTORY: pain, swelling COMPARISON: XR hand left 11/15/2023 FINDINGS: BONES:No fracture, acute abnormality, or significant arthropathy. SOFT TISSUES:No visible soft tissue swelling. EFFUSION:None visible. OTHER: Negative. XR/XR hand LT min 3V IMPRESSION: 1. No acute bone or appreciable soft tissue abnormality. 2. No significant degenerative joint disease. Electronically authenticated by: RICHARD WILSON Date: 01/08/2024 14:03
[2024-01-08] MEDS: AMOXICILLIN/POTASSIUM CLAV 1 TAB TABLET PO (13:34)
[2024-01-08] MEDS: IBUPROFEN 600 MG TABLET PO (13:34)
[2024-01-08] MEDS: BACITRACIN 0.9 GM PACKET 1 PACKET TOPICAL (14:42)
--- NOTE | 2024-01-08 20:41 | ED_ITS ---
HPI HPI - Extremity Injury (Upper) General Chief Complaint: Extremity Injury, Upper Stated Complaint: UPPER EXTREMITY PAIN Time Seen by Provider: 01/08/24 13:15 Source: patient Mode of arrival: walk-in Limitations: no limitations History of Present Illness HPI narrative: 33-year-old male presents to the emergency department complaint of left hand pain. Patient with history of fracture to this hand several weeks ago. Recently got out of the cast. Was at work today when pain developed in his hand. Does note some swelling and redness. Does note a wound which he says was caused by his dogs tag. Complains of tenderness, pain, restricted range of motion of his index and middle fingers due to the pain. Denies any sensory changes, paresthesias. Patient is right-handed. Quality:?As above Severity:?Moderate Timing:?As above, with worsening, constant Context: Normal setting and activity? Modifying factors:?Pain worse with palpation Associated symptoms: as above Related Data Home Medications ?Medication ?Instructions ?Recorded ?Confirmed ibuprofen 200 mg tablet (Advil) 200 mg PO Q8H PRN fever or pain 04/24/23 04/24/23 Previous Rx's ?Medication ?Instructions ?Recorded amoxicillin 875 mg-potassium 1 tab PO BID 10 days #20 tabs 01/08/24 clavulanate 125 mg tablet Allergies Allergy/AdvReac Type Severity Reaction Status Date / Time acetaminophen Allergy Intermediate Rash Verified 04/24/23 10:05 [From Vicks NyQuil Cold/Flu Liquicap] dextromethorphan Allergy Intermediate Rash Verified 04/24/23 10:05 [From Vicks NyQuil Cold/Flu Liquicap] doxylamine Allergy Intermediate Rash Verified 04/24/23 10:05 [From Vicks NyQuil Cold/Flu Liquicap] pcn Allergy Intermediate Hives Uncoded 04/24/23 10:05 vicodin Allergy Mild Migraine Uncoded 04/24/23 10:05 Opioid HPI Opioid Management Most Recent Pain and Opioid Data: Last Pain Scale 7 01/08/24 13:34 Last MAR Pain Assessment 01/08/24 13:34 Review of Systems ROS Constitutional Denies: fatigue or malaise Musculoskeletal Reports: extremity pain, extremity swelling and limited range of motion Integumentary/Breast Reports: redness, skin tenderness, skin swelling and new lesion Neurological Denies: numbness in extremities or weakness in extremities Endocrine Denies: fatigue or other (wound) PFSH PFS Social History Smoking status: Current some day smoker Exam Constitutional Vital Signs, click to edit/add: Last Vital Signs Temp 98.2 F 01/08/24 12:55 Pulse 88 01/08/24 12:55 Resp 20 01/08/24 12:55 BP 107/75 01/08/24 12:55 Documenting provider has reviewed patient's vital signs: yes Common normals: no apparent distress and oriented x3 General appearance: well developed Cardio Peripheral pulses: radial pulses present left 2+ Extremity Other: Left hand: Patient has puncture wound noted between the mid first and second metacarpals with surrounding swelling, erythema. The erythema goes into his wrist along the radial aspect. He has somewhat limited range of motion of his index and middle fingers because of this. He is able to oppose his thumb. Displays good extension of the thumb. All other digits perform full range of motion. Able to flex and extend wrist without problem. Sensory intact. Neuro Common normals: oriented x3, no focal motor deficits and no sensory deficits noted Psych Common normals: mental status grossly normal and thought process normal Thought process: normal thought process Course Vital Signs Vital signs: Vital Signs Temperature 98.2 F 01/08/24 12:55 Pulse Rate 88 01/08/24 12:55 Respiratory Rate 20 01/08/24 12:55 Blood Pressure 107/75 01/08/24 12:55 Temperature 98.2 F 01/08/24 12:55 Pulse Rate 88 01/08/24 12:55 Respiratory Rate 20 01/08/24 12:55 Blood Pressure 107/75 01/08/24 12:55 MDM - Extremity Injury (Upper) MDM Narrative Medical decision making narrative: This is a pleasant 33-year-old male presents to the emergency department with 1 day history of pain in his hand. Recent history of fracture in this hand. On arrival, afebrile, vital signs are stable. On exam, nontoxic and well-appearing patient in no distress. He has swelling around the puncture wound to the hand in between his first and second metacarpal with erythema extending into the wrist. Range of motion somewhat limited due to pain and swelling. Neurovascularly intact. X-ray imaging of his right hand reveals no acute abnormalities. Favor infected wound causing pain and swelling Fracture, dislocation less likely based on imaging Patient states it was from his dog attack that caused the wound. He was started on Augmentin for the evident infection. Wound was cleansed and dressed. Disposition ? The patient was discharged. Plan: Patient will be discharged to home. Condition at time of disposition: stable He was given prescription for Augmentin and a work note limiting his use of his right hand over the next several days. Advised to follow up with primary provider. Advised to return for any worsening and/or development of new, concerning signs or symptoms PLEASE NOTE: Portions of the medical record may have been produced using electronic internet marketing assistant and may contain errors with respect to translation of words which may not have been identified prior to finalization of the chart. Imaging Data Left hand: Radiologist's impression: ITS Impressions Hand X-Ray 01/08/24 13:21 IMPRESSION: 1. No acute bone or appreciable soft tissue abnormality. 2. No significant degenerative joint disease. Electronically authenticated by: RICHARD WILSON Date: 01/08/2024 14:03 Discharge Plan Discharge Stand Alone Forms: Work/School Release, Portal Instructions Chief Complaint: Extremity Injury, Upper Clinical Impression: Hand pain, left Puncture wound of left hand with infection Qualifiers: Encounter type: initial encounter Qualified Code(s): S61.432A - Puncture wound without foreign body of left hand, initial encounter Patient Disposition: Home, Self-Care Time of Disposition Decision: 14:14 Condition: Good Prescriptions / Home Meds: New amoxicillin-pot clavulanate 875-125 mg tablet 1 tab PO BID 10 Days Qty: 20 0RF No Action ibuprofen [Advil] 200 mg tablet 200 mg PO Q8H PRN (Reason: fever or pain) Print Language: German Instructions: Wound Infection (ED) Referrals: Physician,Non-Staff, [Primary Care Provider] - 1 week Richard Talley MD [Physician] - 01/09/24 Discharge Date/Time: 01/08/24 14:46
== END 2024-01-08 14:46 | disposition home or self-care (01) ==
PROVIDERS: Emergency Provider Emergency Medicine
DX: S61.432A Puncture wound without foreign body of left hand, initial encounter (principal); L08.9 Local infection of the skin and subcutaneous tissue, unspecified; F17.210 Nicotine dependence, cigarettes, uncomplicated; W54.1XXA Struck by dog, initial encounter; Z87.81 Personal history of (healed) traumatic fracture
CPT/HCPCS: 73130; 99284

== ENCOUNTER 2024-06-25 07:27 | Emergency (ER) | payer BC, SELFPAY ==
[2024-06-25 07:31] VITALS: BP 103/72; PULSE 100; TEMP 36.8; O2SAT 99; BMI 21.7
[2024-06-25] MEDS: 0.9 % SODIUM CHLORIDE 1,000 ML 1000 ML IV (07:47)
[2024-06-25] MEDS: DIPHENHYDRAMINE HCL 50 MG/ML VIAL 25 MG IV (07:48)
[2024-06-25] MEDS: METOCLOPRAMIDE HCL 10 MG/2 ML VIAL IVP (07:48)
[2024-06-25] MEDS: KETOROLAC TROMETHAMINE 30 MG/ML VIAL 15 MG IVP (07:48)
--- NOTE | 2024-06-25 07:54 | ED_ITS ---
HPI HPI - General Adult General Chief complaint: Headache Stated complaint: NAUSEA, HEADACHE, ABDOMINAL PAIN Time Seen by Provider: 06/25/24 07:28 Mode of arrival: walk-in History of Present Illness HPI narrative: Patient presents to ED complaining of headache and not feeling well. Patient states he started to not feel well on Sunday although last week he had some mild abdominal pain. Sunday he started with headache and mild dizziness. He said it is making him nauseous. He does have a history of migraines and did try to take ibuprofen at home but it is not helping. He said when he moves his head around it causes more pain. No neck stiffness no sensitivity to light. He does complain of mild nasal congestion no sore throat no fever. Patient states he has not really been eating and drinking that much. No neurological deficit no visual changes. Related Data Home Medications ?Medication ?Instructions ?Recorded ?Confirmed ibuprofen 200 mg tablet (Advil) 200 mg PO Q8H PRN fever or pain 04/24/23 06/25/24 Previous Rx's ?Medication ?Instructions ?Recorded ondansetron 4 mg disintegrating 4 mg PO DAILY PRN nausea and 06/25/24 tablet vomiting #15 tabs Allergies Allergy/AdvReac Type Severity Reaction Status Date / Time acetaminophen (From Vicks Allergy Intermediate Rash Verified 04/24/23 10:05 NyQuil Cold/Flu Liquicap) dextromethorphan (From Vicks Allergy Intermediate Rash Verified 04/24/23 10:05 NyQuil Cold/Flu Liquicap) doxylamine (From Vicks Allergy Intermediate Rash Verified 04/24/23 10:05 NyQuil Cold/Flu Liquicap) Penicillins Allergy Intermediate Hives Verified 06/25/24 07:45 hydrocodone (From Vicodin) AdvReac Mild Migraine Verified 06/25/24 07:45 Opioid HPI Opioid Management Most Recent Opioid Data: Last Pain Scale 6 06/25/24 07:42 06/25/24 Review of Systems ROS Status of ROS 10 or more systems reviewed and unremark able except as noted in history and below PFSH PFSH Social History Smoking status: Current some day smoker Little interest or pleasure in doing things: not at all Feeling down, depressed, or hopeless: not at all Exam Narrative Exam Narrative: Time Seen: [] Vital Signs: [Per nurse's notes.] General: [Alert] Skin: [Warm, dry, no rash.] Head: [Normocephalic, atraumatic.] Neck: [Supple, trachea midline.] Eye: [Pupils are equal, round and reactive to light, extraocular movements are intact, normal conjunctiva.] Ears, nose, mouth and throat: oral mucosa moist. Cardiovascular: [Regular rate and rhythm, no murmur.] Respiratory: [Lungs are clear to auscultation, respirations are non-labored, breath sounds are equal.] Chest wall: [No tenderness, no deformity.] Gastrointestinal: [Soft, nontender, non distended, normal bowel sounds.] MSK: 5 out of 5 muscle strength x 4 extremities no calf pain or edema Lymphatics: [No lymphadenopathy.] Psychiatric: [Cooperative, appropriate mood & affect.] Neurological: [Alert and oriented to person, place, time, and situation, no focal neurological deficit observed.] Constitutional Vital Signs, click to edit/add: Last Vital Signs Temp 98.2 F 06/25/24 07:31 Pulse 82 06/25/24 08:00 Resp 18 06/25/24 08:00 BP 103/72 06/25/24 07:31 Pulse Ox 99 06/25/24 08:00 Course Vital Signs Vital signs: Vital Signs Temperature 98.2 F 06/25/24 07:31 Pulse Rate 100 H 06/25/24 07:31 Respiratory Rate 18 06/25/24 07:31 Blood Pressure 103/72 06/25/24 07:31 Pulse Oximetry 99 06/25/24 07:31 Temperature 98.2 F 06/25/24 07:31 Pulse Rate 82 06/25/24 08:00 Respiratory Rate 18 06/25/24 08:00 Blood Pressure 103/72 06/25/24 07:31 Pulse Oximetry 99 06/25/24 08:00 Medical Decision Making MDM Narrative Medical decision making narrative: Patient is feeling better after IV fluids and IV medication. He did test positive for COVID which would explain his headache and sinus congestion. Patient was instructed to use Tylenol and Motrin at home fluids and rest. He will be given the rest the week off work. Return to ED if worsening symptoms otherwise follow-up with family doctor as needed. Patient is comfortable care plan for home. Differential Diagnosis Differential Diagnosis: COVID flu migraine Lab Data Lab results reviewed: Yes I reviewed the patient's lab results Labs: Lab Results 06/25/24 Range/Units 07:37 WBC 6.4 (4.0-11.0) 10^3/uL RBC 4.76 (4.70-6.10) 10^6/uL Hgb 14.9 (14.0-18.0) g/dL Hct 43.9 (42.0-54.0) % MCV 92.2 (80.0-94.0) fL MCH 31.3 (25.9-34.0) pg MCHC 33.9 (29.9-35.2) g/dL RDW 12.9 (11.0-15.0) % Plt Count 222 (150-450) 10^3/uL MPV 10.0 (9.5-13.5) fL Seg Neuts % (Manual) 67.0 (43.0-75.0) Band Neutrophils % 2.0 (0-5) % Lymphocytes % (Manual) 7.0 L (20.5-60.0) % Monocytes % (Manual) 20.0 H (1.7-12.0) % Eosinophils % (Manual) 3.0 (0.9-7.0) % Basophils % (Manual) 1.0 (0.2-2.0) % Neutrophils # (Manual) 4.28 (1.4-6.5) 10^3/uL Band Neutrophils # 0.1 (0.0-0.3) 10^3/uL Lymphocytes # (Manual) 0.44 L (1.20-3.80) 10^3/uL Monocytes # (Manual) 1.28 H (0.30-0.80) 10^3/uL Eosinophils # (Manual) 0.19 (0.00-0.70) 10^3/uL Basophils # (Manual) 0.06 (0.00-0.10) 10^3/uL Sodium 141 (136-145) mmol/L Potassium 4.1 (3.5-5.1) mmol/L Chloride 103 (98-107) mmol/L Carbon Dioxide 27.4 (21.0-32.0) mmol/L Anion Gap 14.7 BUN 12.0 (7.0-18.0) mg/dL Creatinine 1.17 (0.70-1.30) mg/dL Est GFR ( Amer) >60 (>=60 mL/min/1.73m^2) Est GFR (Non-Af Amer) >60 (>=60 mL/min/1.73m^2) BUN/Creatinine Ratio 10.3 Glucose 101 (74-106) mg/dL Calcium 9.4 (8.5-10.1) mg/dL Total Bilirubin 0.7 (0.2-1.0) mg/dL AST 23 (15-37) U/L ALT 31 (16-63) U/L Alkaline Phosphatase 54 (46-116) U/L Total Protein 7.4 (6.4-8.2) g/dL Albumin 4.3 (3.4-5.0) g/dL Globulin 3.1 g/dL Albumin/Globulin Ratio 1.4 Influenza Type A Ag Negative Influenza Type B Ag Negative SARS-CoV-2 Ag (CV2AG) Positive A (NEGATIVE) Discharge Plan Discharge Chief Complaint: Headache Clinical Impression: COVID-19 Patient Disposition: Home, Self-Care Time of Disposition Decision: 08:20 Condition: Good Mode of Transportation: Private Vehicle Prescriptions / Home Meds: New ondansetron 4 mg tablet,disintegrating 4 mg PO DAILY PRN (Reason: nausea and vomiting) Qty: 15 0RF No Action ibuprofen [Advil] 200 mg tablet 200 mg PO Q8H PRN (Reason: fever or pain) Print Language: Montserratian Instructions: COVID-19 (Coronavirus Disease 2019) (ED) Referrals: Physician,Non-Staff, MD [Primary Care Provider] - 1 week
[2024-06-25 07:55] LABS: Hematocrit 43.9 % (42.0-54.0); Hemoglobin 14.9 g/dL (14.0-18.0); Mean Corpuscular HGB Conc 33.9 g/dL (29.9-35.2); Mean Corpuscular Hemoglobin 31.3 pg (25.9-34.0); Mean Corpuscular Volume 92.2 fL (80.0-94.0); Platelet Count 222 10^3/uL (150-450); Red Blood Count 4.76 10^6/uL (4.70-6.10); Red Cell Distribution Width 12.9 % (11.0-15.0); White Blood Count 6.4 10^3/uL (4.0-11.0)
[2024-06-25 08:00] VITALS: PULSE 82; O2SAT 99
[2024-06-25 08:08] LABS: Alanine Aminotransferase 31 U/L (16-63); Albumin Globulin Ratio 1.4; Albumin Level 4.3 g/dL (3.4-5.0); Alkaline Phosphatase 54 U/L (46-116); Anion Gap 14.7; Aspartate Amino Transferase 23 U/L (15-37); BUN Creatinine Ratio 10.3; Bilirubin Total 0.7 mg/dL (0.2-1.0); Calcium 9.4 mg/dL (8.5-10.1); Carbon Dioxide 27.4 mmol/L (21.0-32.0); Chloride 103 mmol/L (98-107); Estimated GFR (African America >60 (>=60 mL/min/1.73m^2); Estimated GFR (Non-African Ame >60 (>=60 mL/min/1.73m^2); Globulin 3.1 g/dL; Glucose 101 mg/dL (74-106); Potassium 4.1 mmol/L (3.5-5.1); Sodium 141 mmol/L (136-145); Total Protein 7.4 g/dL (6.4-8.2)
[2024-06-25 08:09] LABS: Internal Control Within Normal Limits; SARS-CoV-2 Ag POSITIVE (NEGATIVE)
[2024-06-25 08:10] LABS: Influenza Virus A Antigen Negative; Influenza Virus B Antigen Negative; Internal Control Within Normal Limits
[2024-06-25 08:16] LABS: Band Neutrophils Absolute 0.1 10^3/uL (0.0-0.3); Eosinophils Absolute Manual 0.19 10^3/uL (0.00-0.70); Lymphocytes Absolute Manual 0.44 10^3/uL (1.20-3.80); Monocytes Absolute Manual 1.28 10^3/uL (0.30-0.80); Segmented Neut Absolute Manual 4.28 10^3/uL (1.4-6.5)
[2024-06-25 08:17] LABS: Basophils Abs Manual 0.06 10^3/uL (0.00-0.10)
[2024-06-25 08:29] VITALS: BP 126/88; PULSE 80; O2SAT 98
== END 2024-06-25 08:30 | disposition home or self-care (01) ==
PROVIDERS: Emergency Provider Emergency Medicine
DX: U07.1 COVID-19 (principal); F17.200 Nicotine dependence, unspecified, uncomplicated
CPT/HCPCS: 36415; 80053; 85007; 85027; 87804; 87811; 96361; 96374; 96375; 99284; J1200; J1885; J2765

== ENCOUNTER 2024-08-05 07:26 | Emergency (ER) | payer BC, SELFPAY ==
[2024-08-05 07:34] VITALS: BP 120/77; PULSE 95; TEMP 36.6; O2SAT 99; BMI 22.4
--- OUTSIDE RECORDS SUMMARY | 2024-08-05 07:36 | XMS_ITS | CCD ---
Author Organization [facility] Care Team Providers Care Editor School Photograph Name Role Phone Unavailable Primary Care Provider UnavailBRYCE Mccord Attending Unavailable BRYCE RODRIGUEZ Consulting Unavailable BRYCE RODRIGUEZ Admitting Unavailable REQUEST, DR NONE LISTED Primary Care Unavaila ble NONE, XXXX Primary Care Physician Unavailab MAITE Palm Attending Provider [phone] NON STAFF Primary Care Provider Unavailradha Bansal CHEMICAL ENGINEERING TEACHER Ghazala D Attending Provider [phone] MAITE Moreno Attending Provider [phone] NON STAFF Primary Care Provider Unavailabl e BansalMARCUS hutsonN Ghazala D Attending Provider [phone] Bansal, CHEMICAL ENGINEERING TEACHER Ghazala D Attending Provider [phone] Unavailable Primary Care Provider UnavailJeremiah Lee Attending Unavailable BANSAL, GHAZALA Referring Unavailable NO PCP, NO PCP Primary Care Unavailable BANSAL, GHAZALA Referring Unavailable NO PCP, NO PCP Primary Care Unavailable BANSAL, GHAZALA Referring Unavailable NO PCP, NO PCP Primary Care Unavailable NON STAFF Primary Care Unavailable Bansal, Ghazala D Attending Unavailable Bansal, Ghazala D Admitting Unavailable NON STAFF Primary Care Unavailable Gabrielle Moreno Attending Unavailable Gabrielle Moreno Admitting Unavailable NON STAFF Primary Care Unavailable Bansal, Ghazala D Attending Unavailable Bansal, Ghazala D Admitting Unavailable Bansal, Ghazala D Attending Unavailable NON STAFF Primary Care Unavailable Bansal, Ghazala D Admitting Unavailable Bansal, Ghazala D Attending Unavailable NON STAFF Primary Care Unavailable Bansal, Ghazala D Admitting Unavailable Bansal, Ghazala D Admitting Unavailable NON STAFF Primary Care Unavailable Bansal, Ghazala D Attending Unavailable PALLAVI THOMPSON Attending Unavailable Allergies Allergy Classification Reported Allergen(s) Allergy Type Date of Onset Reaction(s) Facility (4 sources) Acetaminophen / HYDROcodone; Translations: [HYDROCODONE-ACETAM INOPHEN] Drug Allergy 04-25-20 18 [place], [place] (9 sources) Penicillins; Translations: [penicillins] Propensity to adverse reactions to drug 01-15-20 17 Anaphylaxis [place], [place] (1 source) Acetaminophen / HYDROcodone Drug Allergy 04-22-20 17 [facility] (1 source) Acetaminophen / Pseudoephedrine Drug Allergy 12-13-19 17 [facility] (1 source) diphenhydrAMINE Drug Allergy [facility] (1 source) Penicillins Drug allergy (disorder) 07-16-19 14 [facility] (2 sources) NyQuil; Translations: [NYQUIL] Drug allergy (disorder) 12-13-19 17 [facility] (6 sources) Acetaminophen; Translations: [acetaminophen] Drug Allergy 07-19-19 migraine, [facility] (6 sources) Dextromethorphan; Translations: [dextromethorphan] Drug Allergy 07-19-19 [facility] (6 sources) diphenhydrAMINE; Translations: [diphenhydramine] Drug Allergy 07-19-19 [facility] (6 sources) Doxylamine; Translations: [doxylamine] Drug Allergy 07-19-19 [facility] (6 sources) HYDROcodone; Translations: [hydrocodone] Drug Allergy 07-19-19 [facility] (6 sources) Pseudoephedrine; Translations: [pseudoephedrine] Drug Allergy 07-19-19 [facility] (2 sources) Penicillins Propensity to adverse reactions to drug 01-15-20 17 Anaphylaxis [facility] (1 source) diphenhydrAMINE; Translations: [DIPHENHYDRAMINE HCL] Drug Allergy 04-09-20 [facility] Repository (1 source) [id number]-SK-[id number] AMINOPHEN; Translations: [TQUBUWPVPWI-JW-KWV TAMINOPHEN] Propensity to adverse reactions to drug (disorder) 04-09-20 [facility] Rep[facility] (1 source) Penicillins Drug allergy (disorder) 07-19-19 [facility] Repository Medications Current Medications Medication Drug Class(es) [...] tablet 0 12/24/2019 10/03/2023 Discontinued (LIST CLEANUP) [id number] 200 actuat albuterol 0.09 mg/actuat metered dose inhaler (3 sources) beta2-Adrenergic Agonist Start: 01-14-2017 albut maryjo sulfate HFA (PROVENTIL HFA) 108 (90 Base) MCG/ACT inhaler Inhale 1-2 puffs into the lungs every 4 hours as needed for Wheezing or Shortness of Breath (Space out to every 6 hours as symptoms improve) Space out to every 6 hours as symptoms improve. 1 Inhaler 01/14/2017 Active Start: 01-14-2017 albuterol sulf ate HFA (PROVENTIL HFA) 108 (90 Base) MCG/ACT inhaler Inhale 1-2 puffs into the lungs every 4 hours as needed for Wheezing or Shortness of Breath (Space out to every 6 hours as symptoms improve) Space out to every 6 hours as symptoms improve. 1 Inhaler 0 01/14/2017 Active Iklmqor-Lyqnjwpnthztn-Lsxixc ne (EXCEDRIN MIGRAINE PO) (2 sources) Aspirin-Acetamin ophen-Caffeine (EXCEDRIN MIGRAINE PO) Take by mouth Active Aspirin-Acetamin ophen-Caffeine (EXCEDRIN MIGRAINE PO) Take by mouth 0 Active azithromycin 250 mg oral tablet (1 source) Macrolide Antimicrobial Start: 10-03-2023 End: 10-08-2023 take 2 tablets by mouth once daily azithromycin (ZITHROMAX) 250 MG tablet Take 2 tablets by mouth daily for 5 days 10 tablet 0 10/03/2023 10/08/2023 Active doxycycline hyclate 100 mg oral capsule (1 source) Tetracycline-class Drug Start: 05-07-2024 End: 05-17-2024 take 1 capsule by mouth twice daily doxycycline hyclate (VIBRAMYCIN) 100 MG capsule Take 1 capsule by mouth 2 times daily for 10 days 20 capsule 05/07/2024 05/17/2024 Active fluticasone propionate 0.05 mg/actuat metered dose nasal spray (1 source) Corticosteroid Start: 05-07-2024 take 2 spray(s) nasal route once daily fluticasone (FLONASE) 50 MCG/ACT nasal spray 2 sprays by Each Nostril route daily 16 g 05/07/2024 Active ibuprofen 800 mg oral tablet (9 sources) Nonsteroidal Anti-inflammatory Drug Start: 05-07-2024 take 1 dose by mouth once 800 mg, Oral, ONCE, 1 dose, On Sun05/07/24 at 1300 Start: 10-03-2023 take 1 tablet by janee th every six hours as needed for pain ibuprofen (IBU) 600 MG tablet Take 1 tablet by mouth every 6 hours as needed for Pain 120 tablet 10/03/2023 Active Start: 12-24-2019 End: 10-03-2023 take 1 tablet by mouth every eight hours as needed for pain ibuprofen (IBU) 800 MG tablet Take 1 tablet by mouth every 8 hours as needed for Pain 10 tablet 3 05/29/2023 10/03/2023 Discontinued (LIST CLEANUP) End: 10-03-2023 ibuprofen (ADVIL;MOTRIN) 200 MG CAPS Take 2 capsules by mouth 0 10/03/2023 Discontinued (LIST CLEANUP) 12 hr loratadine 5 mg / pseudoephedrine sulfate 120 mg extended release oral tablet (1 source) alpha-Adrenergic Agonist Start: 05-07-2024 take 5-120 mg by mouth once loratadine-pseudoephedrine (CLARITIN-D 12HR) 5-120 MG per extended release tablet Take 1 tablet by mouth 2 times daily 60 tablet 5 05/07/2024 Active methylPREDNISolone 4 mg oral tablet (1 source) Corticosteroid Start: 05-07-2024 End: 05-13-2024 methylPREDNISolone (MEDROL, ADITI,) 4 MG tablet Take by mouth. 1 kit 05/07/2024 05/13/2024 Active naproxen 500 mg oral tablet (1 source) [...] 12-25-2019 orphenadrine (NORFLEX) injection 60 mg Problems Active Problems Problem Classification Problem Date Documented Date Episodic/Chronic Crushing injury or internal injury (1 source) Crushing injury of forearm; Translations: [Crushing injury of unspecified forearm, initial encounter] Onset: 07-17-2023 Episodic Headache; including migraine (1 source) Other migraine, not intractable, without status migrainosus; Translations: [Other migraine, not intractable, without status migrainosus] Onset: 05-29-2023 Chronic Headache; including migraine (3 sources) Headache; including migraine; Translations: [HEADACHE UNSPECIFIED] Onset: 11-09-2021 Other upper respiratory infections (5 sources) Acute sinusitis, unspecified; Translations: [Streptococcal sore throat] Onset: 11-10-2021 10-03-2023 Episodic Sprains and strains (1 source) Shoulder strain; Translations: [Strain of right shoulder, initial encounter] Episodic Substance-related disorders (1 source) Smoker 03-24-2014 Chronic Comment on above: Added secondary to d ocumentation in Social History. Unclassified (1 source) Contusion of right forearm, initial encounter; Translations: [Contusion of right forearm, initial encounter] Onset: 08-24-2023 Past or Other Problems Problem Classification Problem Date Documented Da te Episodic/Chronic Superficial injury; contusion (1 source) Contusion of right forearm, initial encounter; Translations: [Contusion of right forearm, initial encounter] Onset: 07-19-2023 Episodic Results Test Name Value Interpretation Reference Range Facil ity COVID-19, Rapidon 05-07-2024 SARS-CoV-2 (COVID-19) RdRp gene JAHAIRA+probe Ql (Resp) Not detected Not Detected [facility] Comment on above: Rapid NAAT: The specimen [...] the sole basis for patient management decisions. Methodology: Isothermal Nucleic Acid Amplification Specimen Description .NASOPHARYNGEAL SWAB [facility] [id number] 05-07-2024 SARS-CoV-2 (COVID-19) RNA JAHAIRA+probe Ql (Unsp spec) Not detected Normal NOTDET [facility] Comment on above: Result Comment: [...] the sole basis for patient management decisions. Methodology: Isothermal Nucleic Acid Amplification Performed By: #### C OVRB #### [facility] [address] [place] [address] [place] [address] Psychology Fellow: Dc Walker MD COVID-19, Rapidon 10-03-2023 SARS-CoV-2 (COVID-19) RdRp gene JAHAIRA+probe Ql (Resp) Not detected Not Detected [facility] Comment on above: Rapid NAAT: The specimen [...] management decisions. Fact sheet for Healthcare Providers: https://www.fda.gov/media/849017/download Fact sheet for Patients: https://www.fda.gov/media/552252/download Methodology: Isothermal Nucleic Acid Amplification Specimen Description .NASOPHARYNGEAL SWAB [facility] Flu A/B Ag Detectionon 10-02 Flu A Ag Detection Negative Normal [facility] Comment on above: Result Comment: for Influenza A Antigen Performed By: #### F KENYABA #### [address] [place] [address] Psychology Fellow: Dc Walker MD Flu B Ag Detection Negative Normal [facility] Comment on above: Result Comment: for Influenza B Antigen. Performed By: #### F LUABA #### [address] [place] [address] Psychology Fellow: Dc Walker MD Rapid Strep Screenon 024 Interpretation and review of laboratory results Abnormal [facility] Specimen source Nom (Unsp spec) .THROAT SWAB [facility] Strep A, Molecular 0.1 Abnormal NEGATIVE [facility] Rapid influenza A/B antigens on 10-03-2023 FLUAV Ag Ql (Unsp spec) Negative NEGATIVE [facility] Comment on above: for Influenza A Anti gen FLUBV Ag Ql (Unsp spec) Negative NEGATIVE [facility] Comment on above: for Influenza B Anti gen. [facility] DJDT-RtX-6mg 10-03-2023 SARS-CoV-2 (COVID-19) RNA JAHAIRA+probe Ql (Unsp spec) Not detected Normal NOTDET [facility] Comment on above: Result Comment: [...] management decisions. Fact sheet for Healthcare Providers: https://www.fda.gov/media/739529/download Fact sheet for Patients: https://www.fda.gov/media/508672/download Methodology: Isothermal Nucleic Acid Amplification Performed By: #### C OVRB #### [address] [place] [address] Psychology Fellow: Dc Walker MD Strep Group A, Rapidon 10-02 Strep A, Molecular .1 Abnormal NEG [facility] Comment on above: Performed By: #### R SAB #### [address] [place] [address] Psychology Fellow: Dc Walker MD Source .THROAT SWAB Normal [facility] Comment on above: Performed By: #### R SAB #### [address] [place] [address] Psychology Fellow: Dc Walker MD XR wrist RT min 3V*on 2023 XR wrist RT min 3V* [facility] Main [place] [id number] XRay Report Signed Patient: Refugio Posadas MR#: [id number] : 1990 Acct:[id number] Age/Sex: 33 / M ADM Date: 07/19/23 Loc: XDCLY Room: Type: [facility] Attending Dr: Gabrielle Moreno APRN Copies [...] Laura Sewell M.D.07/19/2023 3:52 PM Dictation Location: [place] [address] Transcribed By: [facility] 07/19/23 155 Dictated By: Laura Sewell MD 07/19/23 1550 Signed By: 07/19/23 1552 Normal [facility] Consent for Treatmenton 06-20 Consent for Treatment [id number] .00TIFF Normal [facility] Discharge Instructionson Discharge Instructions [id number] .00TIFF Normal [facility] ED Clinical Summaryon 2023 ED Clinical Summary [address] [address] ED Clinical Summary Person Information [facility] Age[facility] 33 Years : 1990 Sex: Male Language: Gibraltarian PCP: NONE, XXXX Marital Status: Single Visit [...] 07/17/2023 13:06:54 07/17/2023 13:06:54 07/17/2023 13:06:54 ADDRESS: [facility] [address] [facility] [id number] PHYS DOC NOTES: MEDICAL INFORMATION: Prescriptions Given: New Medications Printed Prescriptions naproxen (Naprosyn 500 mg Tab) 1 Tablets By Mouth 2 times a day. Refills: 0. PATIENT EDUCATION INFORMATION: Instructions: Crush Injury of the Hand Follow up: With: Address: When: Occupational Health: [facility] [place] [phone] In 3 days 07/20/2023 DIAGNOSIS: Crush injury forearm Normal [facility] ED Note-Physicianon 07-17-19 ED Note-Physician Basic Information Time Seen: Dylon Morfin PA-C 07/17/2023 10:43 Chief Complaint crankshaft pinned arm in block less than a minute. Rt arm pain and swelling History of Present Illness 33-year-old male comes to the ED for evaluation of right arm pain. 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 Appropriate healthcare PPE [...] Robbie Glez MD 07/17/23 11:39:28 Radiation Dose: Ka,r in mGy = na DAP = na Signed By: Robbie Glez MD [facility] Comment on above: Result Comment: Elec tronically [...] and water are not available, use hand loan auditor. ? Change your dressing as told by [...] health care provider. General instructions ? Take oaqy-zhf-vjnfzjs and prescription medicines only as told by your health care provider. ? If you were prescribed an antibiotic, take it as told by your health care provider. Do not stop taking the antibiotic even if you start to feel better. ? Do not use any products that contain nicotine or (more content not included)... Normal [facility] ED Patient Summaryon 024 ED Patient Summary [place] [id number] Patient Discharge Instructions Person Information Name: REFUGIO POSADAS Age: 33 Years Arrival Date: 07/17/2023 10:28:59 Discharge Diagnosis: Crush injury forearm Primary Care Physician: NONE, XXXX Provider Information Primary Provider: Jeremiah Torres DO Advanced Heel Seat Laster:Dylon Morfin PA-C The exam and treatment you received in the Emergency Department were for an urgent problem and are not intended as complete care. It is important that you follow up with a doctor, nurse practitioner, or physician?s general surgery physician assistant for ongoing care. If your symptoms [...] Follow-up Instructions: With: Address: When: Occupational Health: [facility] [place] [phone] In 3 days 07/20/2023 In the event that this physician does not participate in your insurance network, please consult with your insurance company to find a nearby participating provider. Patient Education Materials: Crush Injury of the Hand A MESSAGE TO ALL PATIENTS REGARDING OPIOIDS PRESCRIPTION OPIOIDS: WHAT YOU NEED TO KNOW Prescription opioids can be used to help relieve xsfopllo-fo-zhidjs pain and are often prescribed following a [...] be struggling with addiction, tell your health intensive care specialist and ask for guidance or call SAM[employer]?S National Helpline at 2-489-390-UIIU. j Source: [place] Department of Health and Human Services/Center for Disease Cont (more content not included)... Normal [facility] Workers Comp Formson 024 Workers Comp Forms [id number] .00TIFF Normal [facility] XR Forearm 2 Views Righton 0 07-17-2023 [...] mGy = na DAP = na Normal [facility] [id number] 05-29-2023 SARS-CoV-2 (COVID-19) RNA JAHAIRA+probe Ql (Unsp spec) Not detected Normal [facility] Comment on above: Result Comment: [...] management decisions. Fact sheet for Healthcare Providers: https://www.fda.gov/media/704663/download Fact sheet for Patients: https://www.fda.gov/media/198100/download Methodology: Isothermal Nucleic Acid Amplification Performed By: #### C OVRB #### [facility] [address] [place] [address] Psychology Fellow: Dc Walker MD Vital Signs Date Time Vital Sign Value Performing Clinician Facility 05-07-2024 12:00-0500 Body temperature 98.01 [degF] [facility] 05-07-2024 12:00-0500 Diastolic blood pressure 76 mm[Hg] [facility] 05-07-2024 12:00-0500 Heart rate 88 /min [facility] 05-07-2024 12:00-0500 Respiratory rate 18 /min [facility] 05-07-2024 12:00-0500 SaO2% (BldA) [Mass fraction] 99 % [facility] 05-07-2024 12:00-0500 Systolic blood pressure 106 mm[Hg] [facility] 10-03-2023 12:15-0400 SaO2% (BldA) [Mass fraction] 98 % [facility] 10-03-2023 12:13-0400 Diastolic blood pressure 59 mm[Hg] [facility] 10-03-2023 12:13-0400 Systolic blood pressure 111 mm[Hg] [facility] 10-03-2023 10:55-0400 Body temperature 98.1 [degF] [facility] 10-03-2023 10:55-0400 Heart rate 98 /min [facility] 10-03-2023 10:55-0400 Respiratory rate 18 /min [facility] 07-19-2023 14:40-0500 Body height 182.88 cm CHEMICAL ENGINEERING TEACHER Gabrielle Moreno Work Phone: [facility] 07-19-2023 14:40-0500 Body weight 74.84 kg CHEMICAL ENGINEERING TEACHERLinda Moreno Work Phone: [facility] 07-17-2023 13:06-0500 Diastolic blood pressure 76 mm[Hg] Jeremiah Torres [facility] 07-17-2023 13:06-0500 Heart rate 88 /min Jeremiah Rooneye [facility] 07-17-2023 13:06-0500 Mean blood pressure 92 mm[Hg] Jeremiah Rooneye [facility] 07-17-2023 13:06-0500 Respiratory rate 15 /min Jeremiah Rooneye [facility] 07-17-2023 13:06-0500 SaO2% (BldA) [Mass fraction] 99 % Jeremiah Brian [facility] 07-17-2023 13:06-0500 Systolic blood pressure 125 mm[Hg] Jeremiah Brian [facility] 07-17-2023 10:38-0500 Body temperature 98.6 [degF] Jeremiah oRoneye [facility] 07-17-2023 10:38-0500 Diastolic blood pressure 74 mm[Hg] Jeremiah Rooneye [facility] 07-17-2023 10:38-0500 Heart rate 91 /min Jeremiah Rooneye [facility] 07-17-2023 10:38-0500 Respiratory rate 18 /min Jeremiah Rooneye [facility] 07-17-2023 10:38-0500 SaO2% (BldA) [Mass fraction] 98 % Jeremiah Rooneye [facility] 07-17-2023 10:38-0500 Systolic blood pressure 123 mm[Hg] Jeremiah Rooneye [facility] 12-25-2019 00:10-0400 BP Diastolic 85 mm[Hg] [facility] [place] 12-25-2019 00:10-0400 BP Systolic 120 mm[Hg] [facility] [place] 12-25-2019 00:10-0400 Pulse (Heart Rate) 84 /min Brian Wolfe [facility] [place], [place] 12-25-2019 00:10-0400 Pulse Oximetry 100 % Brian Ledesma [facility] [place] , [place] 12-25-2019 00:10-0400 Respiratory Rate 16 /min Brian Wolfe [facility] [place] 12-24-2019 23:31-0400 Body Temperature 98.01 [degF] Brian Domingosain [facility] [place] , [place] Encounters Encounter Date Encounter Type Care Provider Facility Start: 05-07-2024 End: 05-07-2024 Emergency department patient visit [facility] ED Comment on above: Acute sinusitis, rec urrence not specified, unspecified location (Primary Dx) Start: 10-03-2023 End: 10-03-2023 Emergency department patient visit [facility] ED Comment on above: Strep pharyngitis (P rimary Dx) Start: 09-21-2023 End: 09-21-2023 ambulatory NON STAFF [facility] Work Phone: Start: 09-21-2023 End: 09-21-2023 Patient encounter procedure MAITE Moreno Work Phone: [facility] [address] Work Phone: Start: 09-17-2023 End: 10-17-2023 ambulatory [facility] Start: 08-28-2023 End: 09-17-2023 ambulatory [facility] Start: 08-24-2023 End: 08-24-2023 ambulatory NON STAFF [facility] Work Phone: Start: 08-24-2023 End: 08-24-2023 Patient encounter procedure MAITE Moreno Work Phone: [facility] [address] Work Phone: Start: 08-07-2023 End: 08-17-2023 ambulatory [facility] Start: 08-03-2023 End: 08-03-2023 ambulatory NON STAFF [facility] Work Phone: Start: 08-03-2023 End: 08-03-2023 Patient encounter procedure CHEMICAL ENGINEERING TEACHER Gabrielle Josh Work Phone: [facility] [address] Work Phone: Start: 07-27-2023 End: 07-27-2023 ambulatory NON STAFF [facility] Work Phone: Start: 07-27-2023 End: 07-27-2023 Patient encounter procedure CHEMICAL ENGINEERING TEACHER Gabrielle Moreno Work Phone: [facility] [address] Work Phone: Start: 07-24-2023 End: 07-24-2023 ambulatory NON STAFF [facility] Work Phone: Start: 07-24-2023 End: 07-24-2023 Patient encounter procedure CHEMICAL ENGINEERING TEACHER Gabrielle Moreno Work Phone: [facility] [address] Work Phone: Start: 07-19-2023 End: 07-19-2023 Departed Referred CHEMICAL ENGINEERING TEACHERLinda Moreno Work Phone: [facility] Work Phone: Start: 07-19-2023 End: 07-19-2023 Patient encounter procedure CHEMICAL ENGINEERING TEACHER Gabrielle Moreno Work Phone: [facility] Work Phone: Start: 07-19-2023 End: 07-19-2023 ambulatory NON STAFF [facility] Work Phone: Start: 07-19-2023 End: 07-19-2023 Patient encounter procedure CHEMICAL ENGINEERING TEACHER Gabrielle Moreno Work Phone: [facility]- Start: 07-17-2023 End: 07-17-2023 Emergency department patient visit [facility] Facility:[facility] [place] Start: 07-17-2023 End: 07-17-2023 Emergency department patient visit Jeremiah Torres [facility] Start: 05-29-2023 End: 05-29-2023 Emergency department patient visit PALLAVI THOMPSON [facility] Start: 11-09-2021 End: 11-09-2021 ambulatory BRYCE KOMICHAEL Facility: Start: 12-24-2019 End: 12-25-2019 Emergency department patient visit Brian Wolfe Work Phone: [facility] ED Comment on above: Strain of right shou lder, initial encounter (Primary Dx) Procedures Date Procedure Procedure Detail Performing Clinician Start: 05-07-2024 JOANN SCOTT PA-C Work Phone: Start: 10-03-2023 JOANN SCOTT MD Work Phone: Start: 10-03-2023 End: 10-03-2023 Iaad ia streptococcus group a Pallavi Thompson MD Work Phone: Start: 07-19-2023 Plain X-ray of right wrist CHEMICAL ENGINEERING TEACHER Gabrielle Moreno Work Phone: Plan of Treatment Date Care Activity Detail Author Start: 03-24-2024 DTaP/Tdap/Td vaccine (2 - Td or Tdap) DTaP/Tdap/Td vaccine (2 - Td or Tdap) [facility] Start: 02-17-2024 COVID-19 Vaccine ( season) COVID-19 Vaccine ( season) [facility] Start: 01-17-2024 Influenza vaccination B ON [facility] Start: 02-17-2020 Influenza vaccination Flu vaccine (# 1) [place], [place] Start: 2007 DTaP/Tdap/Td vaccine (1 - Tdap) DTaP/Tdap/Td vaccine (1 - Tdap) [place] Start: 2007 Hepatitis B vaccine (1 of 3 - 19+ 3-dose series) Hepatitis B vaccine (1 of 3 - 19+ 3-dose series) [facility] Start: 2006 Hepatitis C screening Hepatitis C sc reen [facility] Start: 2003 HIV screening HIV screen [facility] Start: 2001 Varicella vaccine (1 of 2 - 13+ 2-dose series) Varicella vaccine (1 of 2 - 13+ 2-dose series) [facility] Start: 2000 Depression Screen Depression Screen [facility] Start: 1994 Pneumococcal 0-64 ye ars Vaccine (1 of 1 - PPSV23) Pneumococcal 0-64 years Vaccine (1 of 1 - PPSV23) [place] Start: 1994 Pneumococcal 0-64 ye ars Vaccine (1 of 2 - PCV) Pneumococcal 0-64 years Vaccine (1 of 2 - PCV) [facility] Start: 1989 Varicella vaccine (1 of 2 - 2-dose childhood series) Varicella vaccine (1 of 2 - 2-dose childhood series) [facility] Start: 1988 COVID-19 Vaccine (#1) COVID-19 Vacci ne (#1) [facility] Start: 1988 Hepatitis B vaccine (1 of 3 - 3-dose series) Hepatitis B vaccine (1 of 3 - 3-dose series) [facility] Immunizations Immunization Date Immunization Notes Care Provider Sonia helton 03-24-2014 tetanus toxoid, redu sonam diphtheria toxoid, and acellular pertussis vaccine, adsorbed Jeremiah Torres [facility] Payers Date Payer Category Payer Unknown 2023 Unknown [id number] 2023 Worker's Compensation [id number] 2022 Unknown [id number] 2020 Worker's Compensation [id number] 2019 Unknown [facility] MEENU [id number] xxxxxxxxxx 2019-Present [address] [address] [place] [address] xxxxxxxxxx [id number] 1988 Unknown [id number] 93 1988 Unknown [id number] 2.16.840.1.295732.3.579.2.7 27 1988 Unknown [id number] 2.16.840.1.405224.3.579.2.1 286 1988 Unknown [id number] 2.16.840.1.966695.3.579.2.1 286 1988 Unknown [id number] 2.16.840.1.881728.3.579.2.1 286 1988 Unknown [id number] 2.16.840.1.230542.3.579.2.1 73 1988 Unknown [id number] 2.16.840.1.921754.3.579.2.1 73 1988 Unknown [id number] 2.16.840.1.356018.3.579.2.1 73 1959 Self-pay Unknown [id number] Unknown [id number] 2.16.840.1.201947.3.579.2.5 31 Unknown [id number] 2.16.840.1.902037.3.579.2.5 31 Unknown [id number] 2.16.840.1.705767.3.579.2.5 31 Unknown [id number] 2.16.840.1.052851.3.579.2.5 31 Unknown [id number] 2.16.840.1.265364.3.579.2.5 31 Unknown [id number] 2.16.840.1.392793.3.579.2.5 31 Social History Date Type Detail Facility Start: 12-24-2019 Tobacco smoking stat us [facility]IS Current every day smoker [employer] History of tobacco use Cigarette Smoker [facility] Start: 12-24-2019 End: 10-03-2023 Cigarettes smoked current (pack per day) - Reported [place] Start: 12-24-2019 End: 05-07-2024 Alcohol intake Current non-drinker of alcohol (finding) [place] Start: 1990 Sex Assigned At Not on file [place] Exposure to SARS-CoV -2 (event) Unable to assess [place] Start: 07-17-2023 Tobacco smoking status Heavy t obacco smoker (finding) [facility] Start: 05-29-2023 End: 10-03-2023 Sex Assigned At Male [facility] Start: 1990 Sex Assigned At Male [facility] Start: 12-24-2019 Tobacco use and exposure Former smokeless tobacco user [employer] How often to you hav e a drink containing alcohol? Never [place] How many standard drinks containing alcohol do you have on a typical day? Patient does not drink [place] Functional Status Date Assessment Result Facility 07-17-2023 Functional Status N/A [facility] Discharge instructions 07-17-2023 Note Date & [...] and water are not available, use hand loan auditor. ?Change your dressing as told by your [...] your health care provider. General instructions Take [id number] and prescription medicines only as told by [...] provider. Document Revised: 09/22/2021 Document Reviewed: 09/22/2021 [employer] Patient Education 2022 [employer]. Follow Up Care 07/17/2023 10:31:30 With:Occupational Health: [facility] [place] [phone] Address:Unknown When:07/20/2023 12:45:06 [facility] Evaluation + Plan note 07-17-2023 Note Date [...] Application Wrist XR Forearm 2 Views Right [facility] Evaluation note Note Date & Type Note Facility Evaluation note [facility] Phone: Evaluation note Note Date & Type Note Facility Evaluation note Diagnosis Strep pharyngitis- Primary Streptococcal sore throat documented in this encounter [facility] Evaluation note Note Date & Type Note Facility Evaluation note Diagnosis Acute sinusitis, recurrence not specified, unspecified location- Primary documented in this encounter [facility] course Narrative Note Date & Type Note Facility Hospital course Narrative No data available for this section [facility] Discharge instructions Attachments Note Date & Type Note Facility Hospital Discharge instructions The following attachments cannot be sent through Care Everywhere.Strep Throat (Gibraltarian)documented in this encounter [facility] Discharge instructions Attachments Note Date & Type Note [facility] Discharge instructions The following attachments cannot be sent through Care Everywhere.Sinusitis: Acute (Gibraltarian)documented in this encounter [facility] Progress note Note Date & Type Note Facility Progress note No data available for this section [facility] Discharge Instructions * Instructions* Brian Wolfe MD [...] sent through Care Everywhere. 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 Advance Directives and Living Will Power of Hay Rake Operator Advance Directive Response Recorded Date/ Time Advance Directives No July 20, 2023 5:16pm Advance Directive Response Recorded Date/ Time Advance Directives No July 20, 2023 6:16pm Summary Purpose Family History No Family History Records Found Relationship Condition Age at Onset Recorded Date/T kendra Not Specified Malignant neoplasm Unknown Chief Complaint and Reason for Visit Chief Complaint [facility] Initial Right Angel nd/Forearm Injury S67.21XA S67.21XA Chief Complaint [facility] Initial Right Angel nd/Forearm Injury S67.21XA S67.21XA S67.21XA S50.11XA, S58.81XA Chief Complaint [facility] Initial Right Angel nd/Forearm Injury S67.21XA S67.21XA S67.21XA S50.11XA S50.11XA, S57.81XA Chief Complaint [facility] Initial Right Angel nd/Forearm Injury S67.21XA S67.21XA S67.21XA S50.11XA S50.11XA, S57.81XA S50.11XA Additional Source Comments Reason for Visit (unrecogniz ed section and content) Reason Comments Shoulder Injury Right shoulder injur y on sunday, seen in another ED sunday night. Increase in pain today Reason Comments Headache Headache ongoing for the past 2 weeks. Sore throat starting Sunday night. Cough, congestion. Reason Comments Nasal Congestion Ongoing since ay. Pt complains of drainage and sinus pressure. Has taken sinus medicine and ibuprofen with no relief. Headache (unrecognized sect ion and content) No Status Records FoundNo Status Records FoundNo Status Records FoundNo Status Records FoundNo Status Records Found INFORMATION SOURCE (unrecogn ized section and content) DATE CREATED AUTHOR 11/10/2021 [facility] DATE CREATED AUTHOR AUTHOR'S ORGANIZ ATION 10/07/2023 [facility] DATE CREATED AUTHOR AUTHOR'S ORGANIZ ATION 10/18/2023 [facility] DATE CREATED AUTHOR AUTHOR'S ORGANIZ ATION 02/10/2024 [facility] DATE CREATED AUTHOR AUTHOR'S ORGANIZ ATION [facility] (unrecognized sec tion and content) [...] 5 days 10 tablet 0 10/03/2023 10/08/2023 Prescription Sig Dispensed Refills Start Date End Da te methylPREDNISolone (MEDROL, ADITI,) 4 MG tablet Take by mouth. 1 kit 05/07/2024 05/13/2024 loratadine-pseudoephedri ne (CLARITIN-D 12HR) 5-120 MG per extended release tablet Take 1 tablet by mouth 2 times daily 60 tablet 5 05/07/2024 doxycycline hyclate (VIBRAMYCIN) 100 MG capsule Take 1 capsule by mouth 2 times daily for 10 days 20 capsule 05/07/2024 05/17/2024 fluticasone (FLONASE) 50 MCG/ACT nasal spray 2 sprays by Each Nostril route daily 16 g 05/07/2024 Scheduled Active and Recently Administ ered Medications (unrecognized section and content) Medication Order 05/05/2024 05/06/2024 05/07/2024 ibuprofen (ADVIL;MOTRIN) tablet 800 mg (COMPLETED) 800 mg, Oral, ONCE, 1 dose, On Sun05/07/24 at 1300 1300 (Given - Provid er: Radha Sarah RN) FOR RECORDS PERTAINING TO PATIENTS WHO ARE [...] BE BASED ON THE PRIMARY CLINICAL RECORDS. [employer] provides no warranty or guarantee of the accuracy or completeness of information in this document.
[2024-08-05 07:40] VITALS: O2SAT 100
--- NOTE | 2024-08-05 08:26 | ED.GENADUL1 ---
HPI HPI - General Adult General Chief complaint: Skin/Abscess/Foreign Body Stated complaint: RASH Time Seen by Provider: 08/05/24 08:14 Source: patient Mode of arrival: walk-in Limitations: no limitations History of Present Illness HPI narrative: 34-year-old male to the emergency department chief complaint of worsening of his chronic eczema rash. He reports typically happens this time year. He reports itching is increasing especially at night. Is worse on his legs and arms. Denies any fever, sweats, chills. No new exposures. Rash typical for him. Related Data Home Medications ?Medication ?Instructions ?Recorded ?Confirmed No Known Home Medications 08/05/24 08/05/24 Allergies Allergy/AdvReac Type Severity Reaction Status Date / Time acetaminophen (From Vicks Allergy Intermediate Rash Verified 08/05/24 07:34 NyQuil Cold/Flu Liquicap) dextromethorphan (From Vicks Allergy Intermediate Rash Verified 08/05/24 07:34 NyQuil Cold/Flu Liquicap) doxylamine (From Vicks Allergy Intermediate Rash Verified 08/05/24 07:34 NyQuil Cold/Flu Liquicap) Penicillins Allergy Intermediate Hives Verified 08/05/24 07:34 hydrocodone (From Vicodin) AdvReac Mild Migraine Verified 08/05/24 07:34 Opioid HPI Opioid Management Most Recent Opioid Data: Last Pain Scale 0 08/05/24 07:40 08/05/24 Review of Systems ROS Status of ROS 10 or more systems reviewed and unremarkable except as noted in history and below PFSH PFSH Social History Smoking status: Current some day smoker Little interest or pleasure in doing things: not at all Feeling down, depressed, or hopeless: not at all Exam Narrative Exam Narrative: VITALS: I have reviewed the triage vital signs. GENERAL: Well developed, well appearing adult in no acute distress. NEURO: Alert and oriented. Moves all extremities. Face is symmetric and expressive. EYES: PERRL. No scleral icterus or conjunctival injection. No discharge. HENT: Normocephalic, atraumatic. Hearing is grossly intact. Nares grossly patent and without discharge. Mucous membranes moist. NECK: No JVD. Patient moves neck without restriction. CARDIO: Rhythm regular. Normal rate. No murmur, rub, or gallop. Pulses equal bilaterally in the upper and lower extremity. No lower extremity edema. PULM: Lungs clear to auscultation in all johnson. No wheezes, rales, or rhonchi. No conversational dyspnea. No splinting, stridor, or accessory muscle use. GI/: Abdomen is soft and non-tender. Normoactive bowel sounds. EXTREMITIES: Symmetric muscle bulk. No joint swelling. No clubbing, cyanosis, or deformity. SKIN: Warm and dry. Normal turgor. Erythematous rash to the flexor surfaces. PSYCH: Mood, affect, and interaction is appropriate to the setting. Constitutional Vital Signs, click to edit/add: Last Vital Signs Temp 97.9 F 08/05/24 07:34 Pulse 95 H 08/05/24 07:34 Resp 20 08/05/24 07:34 BP 120/77 08/05/24 07:34 Pulse Ox 100 08/05/24 07:40 O2 Del Method Room Air 08/05/24 07:40 Course Vital Signs Vital signs: Vital Signs Temperature 97.9 F 08/05/24 07:34 Pulse Rate 95 H 08/05/24 07:34 Respiratory Rate 20 08/05/24 07:34 Blood Pressure 120/77 08/05/24 07:34 Pulse Oximetry 99 08/05/24 07:34 Oxygen Delivery Method Room Air 08/05/24 07:34 Temperature 97.9 F 08/05/24 07:34 Pulse Rate 95 H 08/05/24 07:34 Respiratory Rate 20 08/05/24 07:34 Blood Pressure 120/77 08/05/24 07:34 Pulse Oximetry 100 08/05/24 07:40 Oxygen Delivery Method Room Air 08/05/24 07:40 Medical Decision Making [facility] Narrative Medical decision making narrative: . 34-year-old male with typical examinations rash. Vital stable, the patient is afebrile. No petechia, purpura, bullae, sloughing. Reports longstanding, just worse. Will give a dose of Kenalog. Referral to PCP. Return precautions were discussed. All questions were answered. Patient was discharged home. Medical Records Medical records reviewed: Yes I reviewed the patient's medical records Discharge Plan Discharge Chief Complaint: Skin/Abscess/Foreign Body Clinical Impression: Eczema Patient Disposition: Home, Self-Care Time of Disposition Decision: 08:44 Condition: Good Mode of Transportation: Private Vehicle Prescriptions / Home Meds: No Action No Known Home Medications Print Language: Slovak Instructions: Dermatitis (ED) Referrals: Quincy Brantley MD [Physician] - 1 week Physician,Non-Staff, [Primary Care Provider] - 1 week
[2024-08-05] MEDS: TRIAMCINOLONE ACETONIDE 40 MG/ML VIAL IM (08:54)
[2024-08-05 09:03] VITALS: PULSE 84; O2SAT 100
== END 2024-08-05 09:03 | disposition home or self-care (01) ==
PROVIDERS: Emergency Provider Student in an Organized Health Care Education/Training Program
DX: L30.9 Dermatitis, unspecified (principal); F17.200 Nicotine dependence, unspecified, uncomplicated
CPT/HCPCS: 99284; J3301

== ENCOUNTER 2024-09-15 09:20 | Emergency (ER) | payer BC, SELFPAY ==
[2024-09-15 09:22] VITALS: BP 115/76; PULSE 90; TEMP 36.6; O2SAT 98; BMI 20.9
[2024-09-15 09:31] VITALS: PULSE 88
--- NOTE | 2024-09-15 09:42 | ED.GENADUL1 ---
HPI HPI - General Adult General Chief complaint: Extremity Injury, Upper Stated complaint: R ELBOW PAIN Time Seen by Provider: 09/15/24 09:24 Source: patient Mode of arrival: walk-in Limitations: no limitations History of Present Illness HPI narrative: 34-year-old male presents for right elbow pain. He has had no injury and it has been hurting for a few weeks. He went to another hospital's emergency department and then he saw his family doctor who told him he needs physical therapy. He came here today to find out what is wrong with his elbow. It hurts more to bend it. 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 Related Data Previous Rx's ?Medication ?Instructions ?Recorded etodolac 400 mg tablet 400 mg PO Q8H PRN pain #20 tabs 09/15/24 Allergies Allergy/AdvReac Type Severity Reaction Status Date / Time acetaminophen (From [facility] Allergy Intermediate Rash Verified 08/05/24 07:34 NyQuil Cold/Flu Liquicap) dextromethorphan (From [facility] All[facility] Inter[facility] Rash Verified 08/05/24 07:34 NyQuil Cold/Flu Liquicap) doxylamine (From [facility] Allergy Intermediate Rash Verified 08/05/24 07:34 NyQuil Cold/Flu Liquicap) Penicillins Allergy Intermediate Hives Verified 08/05/24 07:34 hydrocodone (From Vicodin) AdvReac Mild Migraine Verified 08/05/24 07:34 Opioid HPI Opioid Management Most Recent Opioid Data: Last Pain Scale 7 09/15/24 09:31 09/15/24 Last ED Pain Assessment 09/15/24 09:31 Review of Systems ROS Narrative A ten point review of systems is negative except as noted above. PFSH PFSH Social History Smoking status: Current some day smoker Little interest or pleasure in doing things: not at all Feeling down, depressed, or hopeless: not at all Exam Narrative Exam Narrative: Nurses note and vital signs reviewed and patient is not hypoxic. General: The patient appears well and in no apparent distress. Patient is resting comfortably on cart. Skin: Warm, dry, no pallor noted. There is no rash noted. Head: Normocephalic, atraumatic Eye: Normal conjunctiva, no drainage Ears, Nose, Mouth, and Throat: oral mucosa is moist. Nares patent. Cardiovascular: Regular Rate and Rhythm Respiratory: Patient is in no distress, no accessory muscle use, lungs are clear to auscultation, no wheezing, rales or rhonchi Back: non-tender GI: Soft and nontender Musculoskeletal: The right arm is examined. There is no swelling or erythema or bruise or rash in the elbow area. Range of motion causes some discomfort. Radial pulse 2+ and the wrist and shoulder are nontender. Neurological: A&O, normal speech Psychiatric: Cooperative Constitutional Vital Signs, click to edit/add: Last Vital Signs Temp 97.8 F 09/15/24 09:22 Pulse 88 09/15/24 09:31 Resp 18 09/15/24 09:22 BP 115/76 09/15/24 09:22 Pulse Ox 98 09/15/24 09:22 O2 Del Method Room Air 09/15/24 09:22 Course Vital Signs Vital signs: Vital Signs Temperature 97.8 F 09/15/24 09:22 Pulse Rate 90 09/15/24 09:22 Respiratory Rate 18 09/15/24 09:22 Blood Pressure 115/76 09/15/24 09:22 Pulse Oximetry 98 09/15/24 09:22 Oxygen Delivery Method Room Air 09/15/24 09:22 Temperature 97.8 F 09/15/24 09:22 Pulse Rate 88 09/15/24 09:31 Respiratory Rate 18 09/15/24 09:22 Blood Pressure 115/76 09/15/24 09:22 Pulse Oximetry 98 09/15/24 09:22 Oxygen Delivery Method Room Air 09/15/24 09:22 Medical Decision Making MDM Narrative Medical decision making narrative: X-ray report from other hospital shows no acute findings. There was no joint effusion and no significant degeneration or soft tissue abnormality. He is placed in a sling, application checked by me and found to be appropriate, he is neurovascular intact. He was prescribed Lodine and an appointment was made for him to see Dr. Talley on September 22 at 10:30 AM. Treatment diagnosis and follow-up were discussed with the patient. Differential Diagnosis Differential Diagnosis: Tendinitis, bursitis, joint effusion Discharge Plan Discharge Chief Complaint: Extremity Injury, Upper Clinical Impression: Elbow pain, right Patient Disposition: Home, Self-Care Time of Disposition Decision: 10:01 Condition: Good Mode of Transportation: Private Vehicle Prescriptions / Home Meds: New etodolac 400 mg tablet 400 mg PO Q8H PRN (Reason: pain) Qty: 20 0RF Print Language: Greenlandic Instructions: Tendinitis (ED), Arm Pain (ED) Referrals: KODY NEUMANN [Primary Care Provider] - 1 week [place] Talley MD [Physician] - 09/22/24 10:30 am
--- OUTSIDE RECORDS SUMMARY | 2024-09-15 09:50 | XMS_ITS | CCD ---
Author Organization [facility] CliniSyvt Care Team Providers Care Frame Stripper Name Role Phone Unavailable Primary Care Provider UnavailBRYCE Mccord Attending Unavailable BRYCE RODRIGUEZ Consulting Unavailable BRYCE RODRIGUEZ Admitting Unavailable REQUEST, NONE LISTED Primary Care Unavaila ble NONE, XXXX Primary Care Physician Unavailab MAITE Palm Attending Provider [phone] NON STAFF Primary Care Provider Unavailabl e Dimas TRANSFUSION AIDE Ghazala D Attending Provider [phone] MAITE Moreno Attending Provider [phone] NON STAFF Primary Care Provider Unavailabl e Dimas TRANSFUSION AIDE Ghazala D Attending Provider BansalMARCUS hutsonN Ghazala D Attending Provider [phone] Unavailable Primary Care Provider UnavailJeremiah Lee Attending Unavailable BANSAL, GHAZALA Referring Unavailable NO PCP, NO PCP Primary Care Unavailable BANSAL, GHAZALA Referring Unavailable NO PCP, NO PCP Primary Care Unavailable BANSAL, GHAZALA Referring Unavailable NO PCP, NO PCP Primary Care Unavailable PALLAVI THOMPSON Attending Unavailable Dc Dailey DO Primary Care Provider Dc Dailey DO Attending Provider Dc Dailey Admitting Unavailable Dc Dailey Attending Unavailable Dc Dailey Primary Care Unavailable Dc Dailey Admitting Unavailable Dc Dailey Attending Unavailable Dc Dailey Primary Care Unavailable Dimas, Ghazala D Admitting Unavailable Bansal, Ghazala D Attending Unavailable NON STAFF Primary Care Unavailable Allergies Allergy Classification Reported Allergen(s) Allergy Type Date of Onset Reaction(s) Facility (4 sources) Acetaminophen / HYDROcodone; Translations: [HYDROCODONE-ACETAM INOPHEN] Drug Allergy 04-25-20 18 [place], [place] (13 sources) Penicillins; Translations: [penicillins] Propensity to adverse reactions to drug 01-15-20 17 Anaphylaxis [place], [place] (1 source) Acetaminophen / HYDROcodone Drug Allergy 04-22-20 17 [facility] (1 source) Acetaminophen / Pseudoephedrine Drug Allergy 12-13-19 17 [facility] (1 source) diphenhydrAMINE Drug Allergy [facility] (1 source) Penicillins Drug allergy (disorder) 07-16-19 14 [facility] (2 sources) NyQuil; Translations: [NYQUIL] Drug allergy (disorder) 12-13-19 17 [facility] (10 sources) Acetaminophen; Translations: [acetaminophen] Drug Allergy 07-19-19 migraine, [facility] (10 sources) Dextromethorphan; Translations: [dextromethorphan] Drug Allergy 07-19-19 24 [facility] (10 sources) diphenhydrAMINE; Translations: [diphenhydramine] Drug Allergy 07-19-19 [facility] (10 sources) Doxylamine; Translations: [doxylamine] Drug Allergy 07-19-19 24 [facility] (10 sources) HYDROcodone; Translations: [hydrocodone] Drug Allergy 07-19-19 [facility] (10 sources) Pseudoephedrine; Translations: [pseudoephedrine] Drug Allergy 07-19-19 24 [facility] (2 sources) Penicillins Propensity to adverse reactions to drug 01-15-20 Anaphylaxis [facility] (1 source) diphenhydrAMINE; Translations: [DIPHENHYDRAMINE HCL] Drug Allergy 04-09-20 [facility] (1 source) [id number] AMINOPHEN; Translations: [BBBJTDHDISP-GO-DLJ TAMINOPHEN] Propensity to adverse reactions to drug (disorder) 04-09-20 [facility] (1 source) Penicillins Drug allergy (disorder) 09-09-[address] [facility] Medications Current Medications Medication Drug Class(es) Dates Sig (Normalized) Sig (Original) acetaminophen 325 mg oral tablet (7 sources) Start: 08-14-2024 take 1 tablet by mouth every six hours as needed Acetaminophen (Tylenol) 325 mg tablet Active 325 MG PO Every 6 hours as needed August 14, 2024 1:00am Start: 12-25-2019 acetaminophen (TYLENOL) tablet 1,000 mg Start: 12-24-2019 End: 10-03-2023 take 1 tablet by mouth every six hours as needed for pain acetaminophen (TYLENOL) 325 MG tablet Take 1 tablet by mouth every 6 hours as needed for Pain 30 tablet 0 12/24/2019 10/03/2023 Discontinued (LIST CLEANUP) [id number] 200 actuat albuterol 0.09 mg/actuat metered dose [...] symptoms improve. 1 Inhaler 0 01/14/2017 Active Buqodpn-Zjqkdfntfxihb-Ibsxlz ne (EXCEDRIN MIGRAINE PO) (2 sources) Aspirin-Acetamin [...] route daily 16 g 05/07/2024 Active ibuprofen 200 mg oral capsule (13 sources) Nonsteroidal Anti-inflammatory Drug Start: 08-14-2024 take 1 capsule by mouth every six hours as needed Ibuprofen 200 mg capsule Active 200 MG PO Every 6 hours as needed August 14, 2024 1:00am Start: 05-07-2024 take 1 dose by mouth [...] tablet (1 source) Nonsteroidal Anti-inflammatory Drug Start: 01-30-2024 take 1 tablet by mouth twice daily [...] Problem Classification Problem Date Documented Date Episodic/Chronic Allergic reactions (10 sources) Eczema; Translations: [Dermatitis, unspecified] 08-14-2024 Episodic Crushing injury or internal injury (1 source) Crushing injury of forearm; Translations: [Crushing injury of unspecified forearm, initial encounter] Onset: 07-17-2023 Episodic Diseases of white blood cells (5 sources) Leukocytosis; Translations: [Elevated white blood cell count, unspecified] Onset: 09-09-2024 09-08-2024 Chronic Headache; including migraine (1 source) Other migraine, not intractable, without status migrainosus; Translations: [Other migraine, not intractable, without status migrainosus] Onset: 05-29-2023 Chronic Headache; including migraine (3 sources) Headache; including migraine; Translations: [HEADACHE UNSPECIFIED] Onset: 11-09-2021 Other connective tissue disease (2 sources) Lateral epicondylitis of right humerus; Translations: [Lateral epicondylitis, right elbow] 09-08-2024 Episodic Other connective tissue disease (2 sources) Lateral epicondylitis, right elbow; Translations: [Lateral epicondylitis] 09-08-2024 Episodic Other non-traumatic joint disorders (2 sources) Multiple joint pain; Translations: [Pain in unspecified joint] 09-08-2024 Episodic Other non-traumatic joint disorders (2 sources) Pain in unspecified joint; Translations: [Pain in joint, multiple sites] 09-08-2024 Episodic Other upper respiratory infections (5 sources) Acute sinusitis, unspecified; Translations: [Streptococcal sore throat] Onset: 11-10-2021 10-03-2023 Episodic Sprains and strains (1 source) Shoulder strain; Translations: [Strain of right shoulder, initial encounter] Episodic Substance-related disorders (9 sources) Smoker; Translations: [Nicotine dependence] 03-24-2014 Chronic Comment on above: Added secondary to d ocumentation in Social History. Past or Other Problems Problem Classification Problem Date Documented Da te Episodic/Chronic Superficial injury; contusion (1 source) Contusion of right forearm, initial encounter; Translations: [Contusion of right forearm, initial encounter] Onset: 09-21-2023 Episodic Results Test Name Value Interpretation Reference Range Facility KELSI Antinuclear Antibodieson 09-09-2024 Antinuclear Abs, IFA Negative Normal . [facility] Comment on above: Result Comment: Nega tive <1:80 Borderline 1:80 Positive >1:80 ICAP nomenclature: AC-0 For more information about Hep-2 cell patterns use ANApatterns.org, the official website for the International Consensus on Antinuclear Antibody (KELSI) Patterns (ICAP). Performed at: - [facility] [id number] Coatings Inspector: Cory Cabrera PhD, Phone: [phone] Performed By: #### C CP, KELSI, RA #### [facility] , #### CBC, URIC, ESR, CRP #### [address] Basophils Auto (Bld) [#/Vol] Ordered By: Dc Dailey on 09-09-2024 Basophils (Bld) [#/Vol] Automated basoph il count 0.0-0.2 [facility] Basophils/100 WBC Auto (Bld) Ordered By: Dc Dailey on 09-09-2024 Basophils/100 WBC (Bld) Automated basophil % . [facility] C reactive protein [Mass/vol ume] in Serum or PlasmaOrdered By: Dc Dailey on 09-09-2024 CRP [Mass/Vol] C reactive protein [Mass/volume] in Serum or Plasma 0.0-0.5 [facility] C-Reactive Proteinon 025 CRP [Mass/Vol] mg/L Normal 0.0-0.5 [facility] Comment on above: Result Comment: PERF ORMED BY: [place] [address] PATHOLOGIST SANITATION DIRECTOR RENETTA BOATENG M.D. Performed By: #### C CP, KELSI, RA #### [facility] , #### CBC, URIC, ESR, CRP #### [address] Complete Blood Count Auto Di ffon 09-09-2024 Basophils (Bld) [#/Vol] 0.1 10*3/uL Normal 0.0-0.2 [facility] Comment on above: Performed By: #### C CP, KELSI, RA #### [facility] , #### CBC, URIC, ESR, CRP #### [address] Basophils/100 WBC (Bld) 0.6 % Normal . [facility] Comment on above: Performed By: #### C CP, KELSI, RA #### [facility] , #### CBC, URIC, ESR, CRP #### [place] [address] [place] Eosinophils (Bld) [#/Vol] 0.1 10*3/uL Normal 0.0-0.45 [facility] Comment on above: Performed By: #### C CP, KELSI, RA #### [facility] , #### CBC, URIC, ESR, CRP #### [place] [address] [place] Eosinophils/100 WBC (Bld) 1.0 % Normal . [facility] Comment on above: Performed By: #### C CP, KELSI, RA #### [facility] , #### CBC, URIC, ESR, CRP #### [address] Erythrocyte distribution width (RBC) [Ratio] 13.5 % Normal 12.0-14.8 [facility] Comment on above: Performed By: #### C CP, KELSI, RA #### [facility] , #### CBC, URIC, ESR, CRP #### [address] Hematocrit (Bld) [Volume fraction] 41.8 % Normal 38.8-50.0 [facility] Comment on above: Performed By: #### C CP, KELSI, RA #### [facility] , #### CBC, URIC, ESR, CRP #### [address] Hemoglobin (Bld) [Mass/Vol] 14.3 g/dL Normal 13.0-17.0 [facility] Comment on above: Performed By: #### C CP, KELSI, RA #### [facility] , #### CBC, URIC, ESR, CRP #### [address] Lymphocytes (Bld) [#/Vol] 2.1 10*3/uL Normal 1.00-4.8 [facility] Comment on above: Performed By: #### C CP, KELSI, RA #### [facility] , #### CBC, URIC, ESR, CRP #### [address] Lymphocytes/100 WBC (Bld) 16.2 % Normal . [facility] Comment on above: Performed By: #### C CP, KELSI, RA #### [facility] , #### CBC, URIC, ESR, CRP #### [address] MCH (RBC) [Entitic mass] 31.3 pg Normal 27.5-35.2 [facility] Comment on above: Performed By: #### C CP, KELSI, RA #### [facility] , #### CBC, URIC, ESR, CRP #### [address] MCV (RBC) [Entitic vol] 91.7 fL Normal 83.5-101 [facility] Comment on above: Performed By: #### C CP, KELSI, RA #### [facility] , #### CBC, URIC, ESR, CRP #### [address] Mean Corpuscular HGB Conc 34.2 g/dL Normal 32.5-35.6 [facility] Comment on above: Performed By: #### C CP, KELSI, RA #### [facility] , #### CBC, URIC, ESR, CRP #### [address] Monocytes (Bld) [#/Vol] 0.9 10*3/uL High 0.0-0.8 [facility] Comment on above: Performed By: #### C CP, KELSI, RA #### [facility] , #### CBC, URIC, ESR, CRP #### [address] Monocytes/100 WBC (Bld) 7.3 % Normal . [facility] Comment on above: Performed By: #### C CP, KELSI, RA #### [facility] , #### CBC, URIC, ESR, CRP #### [place] [address] [place] Neutrophils (Bld) [#/Vol] 9.8 10*3/uL High 1.8-7.7 [facility] Comment on above: Performed By: #### C CP, KELSI, RA #### [facility] , #### CBC, URIC, ESR, CRP #### [address] Neutrophils/100 WBC (Bld) 74.9 % Normal . [facility] Comment on above: Performed By: #### C CP, KELSI, RA #### [facility] , #### CBC, URIC, ESR, CRP #### [address] NRBC% 0.0 /100{WBC} Normal 0-0.5 [facility] Comment on above: Performed By: #### C CP, KELSI, RA #### [facility] , #### CBC, URIC, ESR, CRP #### [address] Platelet mean volume (Bld) [Entitic vol] 8.1 fL Normal 6.6-10.1 [facility] Comment on above: Performed By: #### C CP, KELSI, RA #### [facility] , #### CBC, URIC, ESR, CRP #### [address] Platelets (Bld) [#/Vol] 254 10*3/uL Normal 150-450 [facility] Comment on above: Performed By: #### C CP, KELSI, RA #### [facility] , #### CBC, URIC, ESR, CRP #### [address] RBC (Bld) [#/Vol] 4.56 10*6/uL Normal 3.90-5.60 [facility] Comment on above: Performed By: #### C CP, KELSI, RA #### [facility] , #### CBC, URIC, ESR, CRP #### [address] WBC (Bld) [#/Vol] 13.0 10*3/uL High 4.1-10.5 [facility] Comment on above: Performed By: #### C CP, KELSI, RA #### [facility] , #### CBC, URIC, ESR, CRP #### [address] Cyclic Citrulliated Pep Abon 09-09-2024 Cyclic Citrulliated Pep Ab 9 Normal 0-19 [facility] Comment on above: Result Comment: Nega tive <20 Weak positive 20 - 39 Moderate positive 40 - 59 Strong positive >59 Performed at: - [facility] [id number] Coatings Inspector: Cory Cabrera PhD, Phone: [phone] PERFORMED BY: [place] [address] PATHOLOGIST SANITATION DIRECTOR RENETTA BOATENG M.D. Performed By: #### C BC, LIPID, TSH3, CMP #### [address] Eosinophils Auto (Bld) [#/Vo l]Ordered By: Dc Dailey on 09-09-2024 Eosinophils (Bld) [#/Vol] Automated eosinophil count 0.0-0.45 [facility] Eosinophils/100 WBC Auto (Bl d)Ordered By: Dc Dailey on 09-09-2024 Eosinophils/100 WBC (Bld) Automated eosinophil % . [facility] Erythrocyte Sedimentation Ra roderick 09-09-2024 ESR (Bld) [Velocity] 5 mm/h Normal 0-14 [facility] Comment on above: Result Comment: PERF ORMED BY: [place] [address] PATHOLOGIST SANITATION DIRECTOR RENETTA BOATENG M.D. Performed By: #### C CP, KELSI, RA #### [facility] , #### CBC, URIC, ESR, CRP #### [address] Erythrocyte distribution wid th Auto (RBC) [Ratio]Ordered By: Dc Dailey on 09-09-2024 Erythrocyte distribution width (RBC) [Ratio] Erythrocyte distribution width [Ratio] by Automated count 12.0-14.8 [facility] Erythrocyte sedimentation ra te by Photometric methodOrdered By: Dc Dailey on 09-09-2024 ESR Photometric method (Bld) [Velocity] Erythrocyte sedimentation rate by Photometric method 0-14 [facility] Hematocrit Auto (Bld) [Volum e fraction]Ordered By: Dc Dailey on 09-09-2024 Hematocrit (Bld) [Volume fraction] Hematocrit [Volume Fraction] of Blood by Automated count 38.8-50.0 [facility] Hemoglobin [Mass/volume] in BloodOrdered By: Dc Dailey on 09-09-2024 Hemoglobin (Bld) [Mass/Vol] Hemoglobin [Mass/volume] in Blood 13.0-17.0 [facility] Leukocytes [#/volume] correc cristino for nucleated erythrocytes in Blood by Automated counOrdered By: Dc Dailey on 09-09-2024 WBC corrected for nucl RBC Auto (Bld) [#/Vol] Leukocytes [#/volume] corrected for nucleated erythrocytes in Blood by Automated coun High 4.1-10.5 [facility] Lymphocytes Auto (Bld) [#/Vo l]Ordered By: Dc Dailey on 09-09-2024 Lymphocytes (Bld) [#/Vol] Lymphocytes [#/volume] in Blood by Automated count 1.00-4.8 [facility] Lymphocytes/100 WBC Auto (Bl d)Ordered By: Dc Dailey on 09-09-2024 Lymphocytes/100 WBC (Bld) Lymphocytes/100 leukocytes in Blood by Automated count . [facility] MCH Auto (RBC) [Entitic mass ]Ordered By: Dc Dailey on 09-09-2024 MCH (RBC) [Entitic mass] MCH [Entitic ma ss] by Automated count 27.5-35.2 [facility] MCHC Auto (RBC) [Mass/Vol]Or dered By: Dc Dailey on 09-09-2024 MCHC (RBC) [Mass/Vol] MCHC [Mass/volume] by Automated count 32.5-35.6 [facility] MCV Auto (RBC) [Entitic vol] Ordered By: Dc Dailey on 09-09-2024 MCV (RBC) [Entitic vol] MCV [Entitic vol ume] by Automated count 83.5-101 [facility] Monocytes Auto (Bld) [#/Vol] Ordered By: Dc Dailey on 09-09-2024 Monocytes (Bld) [#/Vol] Automated blood monocyte count High 0.0-0.8 [facility] Monocytes/100 WBC Auto (Bld) Ordered By: Dc Dailey on 09-09-2024 Monocytes/100 WBC (Bld) Automated monocyte % . [facility] Neutrophils Auto (Bld) [#/Vo l]Ordered By: Dc Dailey on 09-09-2024 Neutrophils (Bld) [#/Vol] Neutrophils [#/volume] in Blood by Automated count High 1.8-7.7 [facility] Neutrophils/100 WBC Auto (Bl d)Ordered By: Dc Dailey on 09-09-2024 Neutrophils/100 WBC (Bld) Automated neutrophil % . [facility] Nucleated erythrocytes [Pres ence] in Blood by Automated countOrdered By: Dc Dailey on 09-09-2024 Nucleated RBC Auto Ql (Bld) Nucleated erythrocytes [Presence] in Blood by Automated count 0-0.5 [facility] Platelet mean volume Auto (B ld) [Entitic vol]Ordered By: Dc Dailey on 09-09-2024 Platelet mean volume (Bld) [Entitic vol] Platelet mean volume [Entitic volume] in Blood by Automated count 6.6-10.1 [facility] Platelets Auto (Bld) [#/Vol] Ordered By: Dc Dailey on 09-09-2024 Platelets (Bld) [#/Vol] Platelets [#/vol ume] in Blood by Automated count 150-450 [facility] RBC Auto (Bld) [#/Vol]Ordere d By: Dc Dailey on 09-09-2024 RBC (Bld) [#/Vol] Erythrocytes [#/volume] in Blood by Automated count 3.90-5.60 [facility] Rheumatoid Factoron 09-10-19 Rheumatoid Factor <10.0 Normal <14.0 [facility] Comment on above: Result Comment: Perf ormed at: - [facility] [address] [id number] Coatings Inspector: Cory Cabrera PhD, Phone: [phone] Performed By: #### C CP, KELSI, RA #### [facility] , #### CBC, URIC, ESR, CRP #### [facility] [address] [place] [address] [place] Urate [Mass/volume] in Serum or PlasmaOrdered By: Dc Dailey on 09-09-2024 Urate [Mass/Vol] Urate [Mass/volume] in Serum or Plasma 4.4-7.6 [facility] Uric Acidon 09-09-2024 Urate [Mass/Vol] 5.3 mg/dL Normal 4.4-7.6 [facility] Comment on above: Performed By: #### C CP, KELSI, RA #### [facility] , #### CBC, URIC, ESR, CRP #### [address] WBC Auto (Bld) [#/Vol]Ordere d By: Dc Dailey on 09-09-2024 WBC (Bld) [#/Vol] Leukocytes [#/volume ] in Blood by Automated count High 4.1-10.5 [facility] X-ray reportOrdered By: Rich Hardwick on 09-09-2024 Study report [facility] [place] [place] [address] XRay Report Signed Patient: Gabriele Posadas MR#: [id number] : 1990 Acct:[id number] Age/Sex: 34 / M ADM Date: 5 Loc: XD Room: Type: [facility] Attending Dr: Dc Dailey DO Copies to: Dc Dailey DO~ Ordering Provider: Dc Dailey DO Date of Service: 09/09/24 XR/XR hand RT min 3V*: M25.50 - Pain in unspecified joint ([id number]) XR/XR elbow RT min 3V*: M25.50 - Pain in unspecified joint 3 views right hand plain film COMPARISON: None HISTORY: Right hand and right elbow pain ACUTE FINDINGS: None DEGENERATIVE CHANGE: Unremarkable SOFT TISSUE FINDINGS: Unremarkable JOINT EFFUSION: None POSTOP CHANGES: None BONY MINERALIZATION: Adequate XR/XR hand RT min 3V* IMPRESSION: Unremarkable exam. 4 views right elbow No joint effusion. Adequate alignment. No acute displaced fracture. No significant degeneration or soft tissue abnormality. IMPRESSION: Unremarkable exam Impression dictated by: Joaquin Hardwick M.D.09/09/2024 4:38 PM Dictation Location: RADIO-PC-23 Transcribed By: FRANNIE 09/09/24 1638 Dictated By: Joaquin Hardwick DO 09/09/24 163 Signed By: 09/09/[address] [facility] XR elbow RT min 3V*on 2024 XR elbow RT min 3V* [facility] [place] [address] [place] [address] XRay Report Signed Patient: Gabriele Posadas MR#: [id number] : 1990 Acct:[id number] Age/Sex: 34 / M ADM Date: 09/09/24 Loc: XD Room: Type: [facility] Attending Dr: Dc Dailey DO Copies to: Dc Dailey DO Ordering Provider: Dc Dailey DO Date of Service: 09/09/24 XR/XR hand RT min 3V*: M25.50 - Pain in unspecified joint ([id number]) XR/XR elbow RT min 3V*: M25.50 - Pain in unspecified joint 3 views right hand plain film COMPARISON: None HISTORY: Right hand and right elbow pain ACUTE FINDINGS: None DEGENERATIVE CHANGE: Unremarkable SOFT TISSUE FINDINGS: Unremarkable JOINT EFFUSION: None POSTOP CHANGES: None BONY MINERALIZATION: Adequate XR/XR hand RT min 3V* IMPRESSION: Unremarkable exam. 4 views right elbow No joint effusion. Adequate alignment. No acute displaced fracture. No significant degeneration or soft tissue abnormality. IMPRESSION: Unremarkable exam Impression dictated by: Joaquin Hardwick M.D.09/09/2024 4:38 PM Dictation Location: RADIO-PC-23 Transcribed By: FRANNIE 09/09/24 1638 Dictated By: Joaquin Hardwick DO 09/09/241636 Signed By: 09/09/24 1638 Normal [facility] Alanine aminotransferase [En zymatic activity/volume] in Serum or PlasmaOrdered By: Dc Dailey on 08-20-2024 ALT [Catalytic activity/Vol] Alanine aminotransferase [Enzymatic activity/volume] in Serum or Plasma 7-52 [facility] Albumin [Mass/volume] in Ser um or Plasma by Bromocresol green (BCG) dye binding methoOrdered By: Dc Dailey on 08-20-2024 Albumin BCG dye [Mass/Vol] Albumin [Mass/volume] in Serum or Plasma by Bromocresol green (BCG) dye binding metho 3.5-5.7 [facility] Alkaline phosphatase [Enzyma tic activity/volume] in Serum or PlasmaOrdered By: Dc Dailey on 08-20-2024 ALP [Catalytic activity/Vol] Alkaline phosphatase [Enzymatic activity/volume] in Serum or Plasma 34-104 [facility] Aspartate aminotransferase [ Enzymatic activity/volume] in Serum or PlasmaOrdered By: Dc Dailey on 08-20-2024 AST [Catalytic activity/Vol] Aspartate aminotransferase [Enzymatic activity/volume] in Serum or Plasma 13-39 [facility] Basophils Auto (Bld) [#/Vol] Ordered By: Dc Dailey on 08-20-2024 Basophils (Bld) [#/Vol] Automated basoph il count 0.0-0.2 [facility] Basophils/100 WBC Auto (Bld) Ordered By: Dc Dailey on 08-20-2024 Basophils/100 WBC (Bld) Automated basophil % . [facility] Bilirubin.total [Mass/volume ] in Serum or PlasmaOrdered By: cD Dailey on 08-20-2024 Bilirubin [Mass/Vol] Bilirubin.total [Mass/volume] in Serum or Plasma High 0.3-1.0 [facility] Calcium [Mass/volume] in Ser um or PlasmaOrdered By: Dc Dailey on 08-20-2024 Calcium [Mass/Vol] Calcium [Mass/volume ] in Serum or Plasma 8.6-10.3 [facility] Carbon dioxide, total [Moles /volume] in Serum or PlasmaOrdered By: Dc Dailey on 08-20-2024 CO2 [Moles/Vol] Carbon dioxide, tota l [Moles/volume] in Serum or Plasma 21.0-31.0 [facility] Chloride [Moles/volume] in S reginaldo or PlasmaOrdered By: Dc Dailey on 08-20-2024 Chloride [Moles/Vol] Chloride [Moles/volume] in Serum or Plasma 98-107 [facility] Cholesterol [Mass/volume] in Serum or PlasmaOrdered By: Dc Dailey on 08-20-2024 Cholesterol [Mass/Vol] Cholesterol [Mass/volume] in Serum or Plasma 140-200 [facility] Comment on above: Chol less than 200 m g/dl low riskChol 201-239 mg/dl borderline riskChol 240 mg/dl and greater high risk Cholesterol in HDL [Mass/vol ume] in Serum or PlasmaOrdered By: Dc Dailey on 08-20-2024 Cholesterol in HDL [Mass/Vol] Serum or plasma high density lipoprotein (HDL) cholesterol measurement 23-92 [facility] Comment on above: HDL CHOL ATP-III CLA SSIFICATION Cardiovascular RiskHDL > or equal to 60 mg/dL LOWHDL < 40 mg/dL HIGH Cholesterol in LDL Calc [Mas s/Vol]Ordered By: Dc Dailey on 08-20-2024 Cholesterol in LDL [Mass/Vol] Cholesterol in LDL [Mass/volume] in Serum or Plasma by calculation High 0-100 [facility] Comment on above: LDL ATP III CLASSIFI CATIONLDL less than 100 mg/dL OptimalLDL 100-129 mg/dL Near or above optimalLDL 130-159 mg/dL Borderline highLDL 160-189 mg/dL HighLDL greater than 189 mg/dL Very high Cholesterol in VLDL Calc [Ma ss/Vol]Ordered By: Dc Dailey on 08-20-2024 Cholesterol in VLDL [Mass/Vol] Cholesterol in VLDL [Mass/volume] in Serum or Plasma by calculation [facility] [facility] Complete Blood Count Auto Di ffon 08-20-2024 Basophils (Bld) [#/Vol] 0.1 10*3/uL Normal 0.0-0.2 [facility] Comment on above: Result Comment: PERF ORMED BY: [facility] [address] [place] [address] PATHOLOGIST SANITATION DIRECTOR MOHAMED M EL-FAKHARANY M.D. Performed By: #### C BC, LIPID, TSH3, CMP #### [address] Basophils/100 WBC (Bld) 0.5 % Normal . T he [facility] Comment on above: Performed By: #### C BC, LIPID, TSH3, CMP #### [address] Eosinophils (Bld) [#/Vol] 0.1 10*3/uL Normal 0.0-0.45 [facility] Comment on above: Performed By: #### C BC, LIPID, TSH3, CMP #### [address] Eosinophils/100 WBC (Bld) 0.8 % Normal . [facility] Comment on above: Performed By: #### C BC, LIPID, TSH3, CMP #### [address] Erythrocyte distribution width (RBC) [Ratio] 13.9 % Normal 12.0-14.8 [facility] Comment on above: Performed By: #### C BC, LIPID, TSH3, CMP #### [address] Hematocrit (Bld) [Volume fraction] 43.1 % Normal 38.8-50.0 [facility] Comment on above: Performed By: #### C BC, LIPID, TSH3, CMP #### [address] Hemoglobin (Bld) [Mass/Vol] 14.6 g/dL Normal 13.0-17.0 [facility] Comment on above: Performed By: #### C BC, LIPID, TSH3, CMP #### [address] Lymphocytes (Bld) [#/Vol] 2.1 10*3/uL Normal 1.00-4.8 [facility] Comment on above: Performed By: #### C BC, LIPID, TSH3, CMP #### [place] [address] [place] Lymphocytes/100 WBC (Bld) 18.7 % Normal . [facility] Comment on above: Performed By: #### C BC, LIPID, TSH3, CMP #### [address] MCH (RBC) [Entitic mass] 30.8 pg Normal 27.5-35.2 [facility] Comment on above: Performed By: #### C BC, LIPID, TSH3, CMP #### [address] MCV (RBC) [Entitic vol] 90.8 fL Normal 83.5-101 [facility] Comment on above: Performed By: #### C BC, LIPID, TSH3, CMP #### [address] Mean Corpuscular HGB Conc 33.9 g/dL Normal 32.5-35.6 [facility] Comment on above: Performed By: #### C BC, LIPID, TSH3, CMP #### [address] Monocytes (Bld) [#/Vol] 0.9 10*3/uL High 0.0-0.8 [facility] Comment on above: Performed By: #### C BC, LIPID, TSH3, CMP #### [address] Monocytes/100 WBC (Bld) 8.4 % Normal . [facility] Comment on above: Performed By: #### C BC, LIPID, TSH3, CMP #### [address] Neutrophils (Bld) [#/Vol] 8.0 10*3/uL High 1.8-7.7 [facility] Comment on above: Performed By: #### C BC, LIPID, TSH3, CMP #### [address] Neutrophils/100 WBC (Bld) 71.6 % Normal . [facility] Comment on above: Performed By: #### C BC, LIPID, TSH3, CMP #### [address] NRBC% 0.0 /100{WBC} Normal 0-0.5 [facility] Comment on above: Performed By: #### C BC, LIPID, TSH3, CMP #### [address] Platelet mean volume (Bld) [Entitic vol] 7.8 fL Normal 6.6-10.1 [facility] Comment on above: Performed By: #### C BC, LIPID, TSH3, CMP #### [address] Platelets (Bld) [#/Vol] 262 10*3/uL Normal 150-450 [facility] Comment on above: Performed By: #### C BC, LIPID, TSH3, CMP #### [address] RBC (Bld) [#/Vol] 4.75 10*6/uL Normal 3.90-5.60 [facility] Comment on above: Performed By: #### C BC, LIPID, TSH3, CMP #### [address] WBC (Bld) [#/Vol] 11.2 10*3/uL High 4.1-10.5 [facility] Comment on above: Performed By: #### C BC, LIPID, TSH3, CMP #### [address] Comprehensive Metabolic Pane jeff 08-20-2024 Albumin [Mass/Vol] 4.7 g/dL Normal 3.5-5.7 [facility] Comment on above: Performed By: #### C BC, LIPID, TSH3, CMP #### [address] Albumin/Globulin [Mass ratio] 2.2 {ratio} Normal [facility] Comment on above: Performed By: #### C BC, LIPID, TSH3, CMP #### [address] [address] [place] ALP [Catalytic activity/Vol] 44 U/L Normal 34-104 [facility] Comment on above: Performed By: #### C BC, LIPID, TSH3, CMP #### [address] ALT [Catalytic activity/Vol] 21 U/L Normal 7-52 [facility] Comment on above: Performed By: #### C BC, LIPID, TSH3, CMP #### [address] Anion gap [Moles/Vol] 9.6 mmol/L Normal 6.0-15.0 [facility] Comment on above: Performed By: #### C BC, LIPID, TSH3, CMP #### [address] AST [Catalytic activity/Vol] 19 U/L Normal 13-39 [facility] Comment on above: Performed By: #### C BC, LIPID, TSH3, CMP #### [address] Bilirubin [Mass/Vol] 1.1 mg/dL High 0.3-1.0 [facility] Comment on above: Performed By: #### C BC, LIPID, TSH3, CMP #### [address] Calcium [Mass/Vol] 9.6 mg/dL Normal 8.6-10.3 [facility] Comment on above: Performed By: #### C BC, LIPID, TSH3, CMP #### [address] Chloride [Moles/Vol] 105 mmol/L Normal 98-107 [facility] Comment on above: Performed By: #### C BC, LIPID, TSH3, CMP #### [address] CO2 [Moles/Vol] 30.0 mmol/L Normal 21.0-31.0 [facility] Comment on above: Performed By: #### C BC, LIPID, TSH3, CMP #### [address] Creatinine [Mass/Vol] 0.97 mg/dL Normal 0.70-1.30 [facility] Comment on above: Performed By: #### C BC, LIPID, TSH3, CMP #### [address] GFR/1.73 sq M.predicted MDRD (S/P/Bld) [Vol rate/Area] mL/min/{1.73_m2} Normal [facility] Comment on above: Performed By: #### C BC, LIPID, TSH3, CMP #### [address] Globulin (S) [Mass/Vol] 2.1 g/dL Normal T he [facility] Comment on above: Performed By: #### C BC, LIPID, TSH3, CMP #### [address] Glucose [Mass/Vol] 90 mg/dL Normal 70-100 [facility] Comment on above: Result Comment: [facility] Glucose Reference Range is dependent on time and content of last meal. Glucose of more than 200 mg/dL in a nonstressed, ambulatory subject supports the diagnosis of Diabetes Mellitus. ADA recommended reference range Performed By: #### C BC, LIPID, TSH3, CMP #### [address] Potassium [Moles/Vol] 4.6 mmol/L Normal 3.5-5.1 [facility] Comment on above: Performed By: #### C BC, LIPID, TSH3, CMP #### [address] Protein [Mass/Vol] 6.8 g/dL Normal 6.4-8.9 [facility] Comment on above: Performed By: #### C BC, LIPID, TSH3, CMP #### [address] Sodium [Moles/Vol] 140 mmol/L Normal 136-145 [facility] Comment on above: Performed By: #### C BC, LIPID, TSH3, CMP #### [facility] [address] [place] [address] [place] Urea nitrogen [Mass/Vol] 11 mg/dL Normal 7-25 [facility] Comment on above: Performed By: #### C BC, LIPID, TSH3, CMP #### [facility] [address] [place] [address] [place] Creatinine [Mass/volume] in Serum or PlasmaOrdered By: Dc Dailey on 08-20-2024 Creatinine [Mass/Vol] Creatinine [Mass/volume] in Serum or Plasma 0.70-1.30 [facility] Eosinophils Auto (Bld) [#/Vo l]Ordered By: Dc Dailey on 08-20-2024 Eosinophils (Bld) [#/Vol] Automated eosinophil count 0.0-0.45 [facility] Eosinophils/100 WBC Auto (Bl d)Ordered By: Dc Dailey on 08-20-2024 Eosinophils/100 WBC (Bld) Automated eosinophil % . [facility] Erythrocyte distribution wid th Auto (RBC) [Ratio]Ordered By: Dc Dailey on 08-20-2024 Erythrocyte distribution width (RBC) [Ratio] Erythrocyte distribution width [Ratio] by Automated count 12.0-14.8 [facility] Globulin Calc (S) [Mass/Vol] Ordered By: Dc Dailey on 08-20-2024 Globulin (S) [Mass/Vol] Serum globulin measurement by calculation (mass/volume) [facility] Glucose [Mass/volume] in Ser um or PlasmaOrdered By: Dc Dailey on 08-20-2024 Glucose [Mass/Vol] Glucose [Mass/volume ] in Serum or Plasma 70-100 [facility] Comment on above: ADA recommended refe rence rangeRandom Glucose Reference Range is dependent on time and content of last meal. Glucose of more than 200 mg/dL in a nonstressed, ambulatory subject supports the diagnosis of Diabetes Mellitus. Hematocrit Auto (Bld) [Volum e fraction]Ordered By: Dc Dailey on 08-20-2024 Hematocrit (Bld) [Volume fraction] Hematocrit [Volume Fraction] of Blood by Automated count 38.8-50.0 [facility] Hemoglobin [Mass/volume] in BloodOrdered By: Dc Dailey on 08-20-2024 Hemoglobin (Bld) [Mass/Vol] Hemoglobin [Mass/volume] in Blood 13.0-17.0 [facility] Leukocytes [#/volume] correc cristino for nucleated erythrocytes in Blood by Automated counOrdered By: Dc Dailey on 08-20-2024 WBC corrected for nucl RBC Auto (Bld) [#/Vol] Leukocytes [#/volume] corrected for nucleated erythrocytes in Blood by Automated coun High 4.1-10.5 [facility] Lipid Panelon 08-20-2024 Cholesterol [Mass/Vol] 173 mg/dL Normal 140-200 Th e [facility] Comment on above: Result Comment: Chol less than 200 mg/dl low risk Chol 201-239 mg/dl borderline risk Chol 240 mg/dl and greater high risk Performed By: #### C BC, LIPID, TSH3, CMP #### [facility] [address] Cholesterol in HDL [Mass/Vol] 42 mg/dL Normal 23-92 [facility] Comment on above: Result Comment: HDL CHOL ATP-III CLASSIFICATION Cardiovascular Risk HDL > or equal to 60 mg/dL LOW HDL < 40 mg/dL HIGH Performed By: #### C BC, LIPID, TSH3, CMP #### [facility] [address] Cholesterol.total/Choles terol in HDL [Mass ratio] 4.1 {ratio} Normal <5.0 [facility] Comment on above: Performed By: #### C BC, LIPID, TSH3, CMP #### [facility] [address] [place] [id number] [facility] LDL Cholesterol,Calculated 119 mg/dL High 0-100 [facility] Comment on above: Result Comment: LDL ATP III CLASSIFICATION LDL less than 100 mg/dL Optimal LDL 100-129 mg/dL Near or above optimal LDL 130-159 mg/dL Borderline high LDL 160-189 mg/dL High LDL greater than 189 mg/dL Very high Performed By: #### C BC, LIPID, TSH3, CMP #### [facility] [address] [place] [id number] [place] Triglyceride w/Reflex 60 mg/dL Normal 0-149 [facility] Comment on above: Result Comment: TRIG ATP III CLASSIFICATION TRIG less than 150 mg/dL Normal TRIG 150-199 mg/dL Borderline high TRIG 200-500 mg/dL High TRIG greater than 500 mg/dL Very high Standard traceable to the Center for Disease Conrtrol and Prevention (CDC) test method. Performed By: #### C BC, LIPID, TSH3, CMP #### [facility] [address] VLDL CHOLESTEROL 12 mg/dL Normal [facility] Comment on above: Performed By: #### C BC, LIPID, TSH3, CMP #### [facility] [address] Lymphocytes Auto (Bld) [#/Vo l]Ordered By: Dc Dailey on 08-20-2024 Lymphocytes (Bld) [#/Vol] Lymphocytes [#/volume] in Blood by Automated count 1.00-4.8 [facility] Lymphocytes/100 WBC Auto (Bl d)Ordered By: Dc Dailey on 08-20-2024 Lymphocytes/100 WBC (Bld) Lymphocytes/100 leukocytes in Blood by Automated count . [facility] MCH Auto (RBC) [Entitic mass ]Ordered By: Dc Dailey on 08-20-2024 MCH (RBC) [Entitic mass] MCH [Entitic ma ss] by Automated count 27.5-35.2 [facility] MCHC Auto (RBC) [Mass/Vol]Or dered By: Dc Dailey on 08-20-2024 MCHC (RBC) [Mass/Vol] MCHC [Mass/volume] by Automated count 32.5-35.6 [facility] MCV Auto (RBC) [Entitic vol] Ordered By: Dc Dailey on 08-20-2024 MCV (RBC) [Entitic vol] MCV [Entitic vol ume] by Automated count 83.5-101 [facility] Monocytes Auto (Bld) [#/Vol] Ordered By: Dc Dailey on 08-20-2024 Monocytes (Bld) [#/Vol] Automated blood monocyte count High 0.0-0.8 [facility] Monocytes/100 WBC Auto (Bld) Ordered By: Dc Dailey on 08-20-2024 Monocytes/100 WBC (Bld) Automated monocyte % . [facility] Neutrophils Auto (Bld) [#/Vo l]Ordered By: Dc Dailey on 08-20-2024 Neutrophils (Bld) [#/Vol] Neutrophils [#/volume] in Blood by Automated count High 1.8-7.7 [facility] Neutrophils/100 WBC Auto (Bl d)Ordered By: Dc Dailey on 08-20-2024 Neutrophils/100 WBC (Bld) Automated neutrophil % . [facility] No Panel InformationOrdered By: Dc Dailey on 08-20-2024 Estimated GFR (CKD-EPI) > 60.0 mL/Min [facility] Creatinine Clearance (Chem N/A [facility] Nucleated erythrocytes [Pres ence] in Blood by Automated countOrdered By: Dc Dailey on 08-20-2024 Nucleated RBC Auto Ql (Bld) Nucleated erythrocytes [Presence] in Blood by Automated count 0-0.5 [facility] Platelet mean volume Auto (B ld) [Entitic vol]Ordered By: Dc Dailey on 08-20-2024 Platelet mean volume (Bld) [Entitic vol] Platelet mean volume [Entitic volume] in Blood by Automated count 6.6-10.1 [facility] Platelets Auto (Bld) [#/Vol] Ordered By: Dc Dailey on 08-20-2024 Platelets (Bld) [#/Vol] Platelets [#/vol ume] in Blood by Automated count 150-450 [facility] Potassium [Moles/volume] in Serum or PlasmaOrdered By: Dc Dailey on 08-20-2024 Potassium [Moles/Vol] Potassium [Moles/volume] in Serum or Plasma 3.5-5.1 [facility] Protein [Mass/volume] in Ser um or PlasmaOrdered By: Dc Dailey on 08-20-2024 Protein [Mass/Vol] Protein [Mass/volume ] in Serum or Plasma 6.4-8.9 [facility] RBC Auto (Bld) [#/Vol]Ordere d By: Dc Dailey on 08-20-2024 RBC (Bld) [#/Vol] Erythrocytes [#/volume] in Blood by Automated count 3.90-5.60 [facility] Serum or plasma albumin/glob ulin mass ratioOrdered By: Dc Dailey on 08-20-2024 Albumin/Globulin [Mass ratio] Serum or plasma albumin/globulin mass ratio [facility] Serum or plasma anion gap de terminationOrdered By: Dc Dailey on 08-20-2024 Anion gap [Moles/Vol] Serum or plasma an ion gap determination 6.0-15.0 [facility] Serum or plasma total choles terol/high density lipoprotein (HDL) cholesterol mass ratOrdered By: Dc Dailey on 08-20-2024 Cholesterol.total/Choles terol in HDL [Mass ratio] Serum or plasma total cholesterol/high density lipoprotein (HDL) cholesterol mass rat <5.0 [facility] Sodium [Moles/volume] in Ser um or PlasmaOrdered By: Dc Dailey on 08-20-2024 Sodium [Moles/Vol] Sodium [Moles/volume ] in Serum or Plasma 136-145 [facility] Thyroid Stimulating Hormoneo n 08-20-2024 TSH Qn 1.01 m[IU]/L Normal 0.45-5.33 [facility] Comment on above: Result Comment: PERF ORMED BY: [place] [address] PATHOLOGIST SANITATION DIRECTOR RENETTA BOATENG M.D. Performed By: #### C BC, LIPID, TSH3, CMP #### [address] Thyrotropin [Units/volume] i n Serum or PlasmaOrdered By: Dc Dailey on 08-20-2024 TSH Qn Thyrotropin [Units/volume] in Serum or Plasma 0.45-5.33 [facility] Triglyceride [Mass/volume] i n Serum or PlasmaOrdered By: Dc Dailey on 08-20-2024 Triglyceride [Mass/Vol] Triglyceride [Mass/volume] in Serum or Plasma 0-149 [facility] Comment on above: TRIG ATP III CLASSIF ICATIONTRIG less than 150 mg/dL NormalTRIG 150-199 mg/dL Borderline highTRIG 200-500 mg/dL High TRIG greater than 500 mg/dL Very highStandard traceable to the Center for Disease Conrtrol and Prevention (CDC) test method. Urea nitrogen [Mass/volume] in Serum or PlasmaOrdered By: Dc Dailey on 08-20-2024 Urea nitrogen [Mass/Vol] Urea nitrogen [Mass/volume] in Serum or Plasma 7-25 [facility] WBC Auto (Bld) [#/Vol]Ordere d By: Dc Dailey on 08-20-2024 WBC (Bld) [#/Vol] Leukocytes [#/volume ] in Blood by Automated count High 4.1-10.5 [facility] COVID-19, Rapidon 05-07-2024 SARS-CoV-2 (COVID-19) RdRp gene JAHAIRA+probe Ql (Resp) Not detected Not Detected [facility] Comment on above: Rapid NAAT: The [...] Nucleic Acid Amplification Specimen Description .NASOPHARYNGEAL SWAB [facility] [id number] 05-07-2024 SARS-CoV-2 (COVID-19) RNA JAHAIRA+probe Ql (Unsp spec) Not detected Normal [facility] Comment on above: Result Comment: Rapid [...] Amplification Performed By: #### C OVRB #### [address] [place] [address] Coatings Inspector: Dc Walker MD COVID-19, Rapidon 10-03-2023 SARS-CoV-2 (COVID-19) RdRp gene JAHAIRA+probe Ql (Resp) Not detected Not Detected [facility] Comment on above: Rapid NAAT: The [...] management decisions. Fact sheet for Healthcare Providers: https://www.fda.gov/media/797213/download Fact sheet for Patients: https://www.fda.gov/media/020563/download Methodology: Isothermal Nucleic Acid Amplification Specimen Description .NASOPHARYNGEAL SWAB [facility] Flu A/B Ag Detectionon 10-02 Flu A Ag Detection Negative Normal NEG [facility] Comment on above: Result Comment: for Influenza A Antigen Performed By: #### F LUABA #### [address] [place] [address] Coatings Inspector: Dc Walker MD Flu B Ag Detection Negative Normal NEG [facility] Comment on above: Result Comment: for Influenza B Antigen. Performed By: #### F LUABA #### [address] [place] [address] Coatings Inspector: Dc Walker MD Rapid Strep Screenon 024 Interpretation and review of laboratory results Abnormal [facility] Specimen source Nom (Unsp spec) .THROAT SWAB [facility] Strep A, Molecular 0.1 Abnormal NEGATIVE [facility] Rapid influenza A/B antigens on 10-03-2023 FLUAV Ag Ql (Unsp spec) Negative NEGATIVE B ON [facility] Comment on above: for Influenza A Anti gen FLUBV Ag Ql (Unsp spec) Negative NEGATIVE B ON [facility] Comment on above: for Influenza B Anti gen. [facility] TECN-EfC-4ay 10-03-2023 SARS-CoV-2 (COVID-19) RNA JAHAIRA+probe Ql (Unsp spec) Not detected Normal NOTDET [facility] Comment on above: Result Comment: Rapid [...] management decisions. Fact sheet for Healthcare Providers: https://www.fda.gov/media/240207/download Fact sheet for Patients: https://www.fda.gov/media/717210/download Methodology: Isothermal Nucleic Acid Amplification Performed By: #### C OVRB #### [facility] [address] [place] [address] Coatings Inspector: Dc Walker MD Strep Group A, Rapidon 10-02 Strep A, Molecular .1 Abnormal NEG [facility] Comment on above: Performed By: #### R SAB #### [facility] [address] [place], [place] [id number] Coatings Inspector: Dc Walker MD Source .THROAT SWAB Normal [facility] Comment on above: Performed By: #### R SAB #### [facility] [address] [place] [address] Coatings Inspector: Dc Walker MD Consent for Treatmenton 06-20 Consent for Treatment [id number] Normal [facility] Discharge Instructionson Discharge Instructions [id number] Normal [facility] ED Clinical Summaryon 2023 ED Clinical Summary [address] [address] ED Clinical Summary Person Information Name: GABRIELE POSADAS/[facility] Age: 33 Years : 1990 Sex: Male Language: Kazakh PCP: NONE, XXXX Marital Status: Single Visit [...] 13:06:54 07/17/2023 13:06:54 07/17/2023 13:06:54 ADDRESS: [place] [facility] [address] [facility] [id number] PHYS DOC NOTES: MEDICAL INFORMATION: Prescriptions Given: New Medications Printed Prescriptions naproxen (Naprosyn 500 mg Tab) 1 Tablets By Mouth 2 times a day. Refills: 0. PATIENT EDUCATION INFORMATION: Instructions: Crush Injury of the Hand Follow up: With: Address: When: Occupational Health: FT [phone] In 3 days 07/20/2023 DIAGNOSIS: Crush injury forearm Normal [facility] ED Note-Physicianon 07-17-19 ED Note-Physician Basic Information Time Seen: Shelbie DE PAZDylon 07/17/2023 10:43 Chief Complaint crankshaft pinned arm in block less than a minute. Rt arm pain and swelling History of Present Illness 33-year-old male comes to the ED for evaluation of right arm pain. 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 Appropriate healthcare PPE [...] 07/17/23 13:06:03 IMPRESSION: No acute osseous findings. EXAMINATION/TECHNIQUE: XR Forearm 2 Views Right HISTORY: Right forearm pain. COMPARISON: None RESULT: No evidence for acute fracture involving the right forearm. Alignment at the wrist and elbow appears maintained. Soft tissue edema. No other significant abnormality. Ordering Provider: Dylon Morfin Signed By: Robbie Glez MD 07/17/23 11:39:28 Radiation Dose: Ka,r in mGy = na DAP = na Signed By: Robbie Glez MD [facility] Comment on above: Result Comment: Elec tronically [...] and water are not available, use hand director of federal sales. ? Change your dressing as told by [...] health care provider. General instructions ? Take [id number] and prescription medicines only as told by your health care provider. ? If you were prescribed an antibiotic, take it as told by your health care provider. Do not stop taking the antibiotic even if you start to feel better. ? Do not use any products that contain nicotine or (more content not included)... Normal [facility] ED Patient Summaryon 024 ED Patient Summary [place] [id number] Patient Discharge Instructions Person Information Name: GABRIELE POSADAS Age: 33 Years Arrival Date: 07/17/2023 10:28:59 Discharge Diagnosis: Crush injury forearm Primary Care Physician: NONE, XXXX Provider Information Primary Provider: Jeremiah Torres DO Advanced Grey Washer:Dylon Morfin PA-C The exam and treatment you received in the Emergency Department were for an urgent problem and are not intended as complete care. It is important that you follow up with a doctor, nurse practitioner, or physician?s assistant producer for ongoing care. If your symptoms become worse or you do not improve as expected and you are unable to reach your usual health care provider, you should return to the Emergency Department. We are available 24 hours a day. GABRIELE POSADAS has been given the following list of patient education materials, prescriptions and follow-up instructions: Follow-up Instructions: With: Address: When: Occupational Health: [facility] [phone] In 3 days 07/20/2023 In the event that this physician does not participate in your insurance network, please consult with your insurance company to find a nearby participating provider. Patient Education Materials: Crush Injury of the Hand A MESSAGE TO ALL PATIENTS REGARDING OPIOIDS PRESCRIPTION OPIOIDS: WHAT YOU NEED TO KNOW Prescription opioids can be used to help relieve cpeyshjq-dx-sbjsnb pain and are often prescribed following a [...] guidance from the Food and Drug Administration (www.fda.gov/Drugs/Res ourcesForYou). ? Visit www.cdc.gov/drugoverdo se to learn about the risks of opioids abuse and overdose. ? If you believe you may be struggling with addiction, tell your health career technical counselor and ask for guidance or call [facility]S National Helpline at 3-284-397-PHOA. x Source: US Department of Health and Human Services/Center for Disease Cont (more content not included)... Normal [facility] Workers Comp Formson 024 Workers Comp Forms [id number] [id number] Normal [facility] XR Forearm 2 Views Righton 0 07-17-2023 XR Forearm 2 Views Right Exam Date/Time: 07/17/2023 11:39 EST Reason for Exam: Pain, Traumatic Report IMPRESSION: No acute osseous findings. EXAMINATION/TECHNIQUE: XR Forearm 2 Views Right HISTORY: Right forearm pain. COMPARISON: None RESULT: No evidence for acute fracture involving the right forearm. Alignment at the wrist and elbow appears maintained. Soft tissue edema. No other significant abnormality. Ordering Provider: Dylon Morfin FINAL REPORT Dictated: 07/17/2023 1:03 pm Newton REBOLLEDO, Robbie Martinez Signed (Electronic Signature): 07/17/2023 1:03 pm Signed by: Robbie Glez MD Transcribed by: ZBIGNIEW Technologist: SAHIL Technical Comments Radiation Dose: narda Beard in mGy = na DAP = na Normal [facility] [id number] 05-29-2023 SARS-CoV-2 (COVID-19) RNA JAHAIRA+probe Ql (Unsp spec) Not detected [facility] Comment on above: Result Comment: Rapid [...] management decisions. Fact sheet for Healthcare Providers: https://www.fda.gov/media/376753/download Fact sheet for Patients: https://www.fda.gov/media/669397/download Methodology: Isothermal Nucleic Acid Amplification Performed By: #### C OVRB #### [facility] [address] [place] [address] [place] [address] Coatings Inspector: Dc Walker MD Vital Signs Date Time Vital Sign Value Performing Clinician Facility 09-08-2024 17:42-0400 Body temperature 98.7 [degF] Dc Dailey DO Work Phone: [facility] 09-08-2024 17:42-0400 Diastolic blood pressure 74 mm[Hg] Dc Dailey DO Work Phone: [facility] 09-08-2024 17:42-0400 Heart rate 113 /min Dc Dailey DO Work Phone: [facility] 09-08-2024 17:42-0400 SaO2% (BldA) [Mass fraction] 98 % Dc Dailey DO Work Phone: [facility] 09-08-2024 17:42-0400 Systolic blood pressure 112 mm[Hg] Dc Dailey DO Work Phone: [facility] 08-14-2024 10:38-0500 Body height 182.88 cm [facility] 08-14-2024 10:38-0500 Body mass index (BMI) [Ratio] 20.6 kg/m2 [facility] 08-14-2024 10:38-0500 Body temperature 98.6 [degF] [facility] 08-14-2024 10:38-0500 Body weight 68.94 kg [facility] 08-14-2024 10:38-0500 Diastolic blood pressure 72 mm[Hg] [facility] 08-14-2024 10:38-0500 Heart rate 97 /min [facility] 08-14-2024 10:38-0500 SaO2% (BldA) [Mass fraction] 98 % [facility] 08-14-2024 10:38-0500 Systolic blood pressure 108 mm[Hg] [facility] 05-07-2024 12:00-0500 Body temperature 98.01 [degF] [facility] 05-07-2024 12:00-0500 Diastolic blood pressure 76 mm[Hg] [facility] 05-07-2024 12:00-0500 Heart rate 88 /min [facility] 05-07-2024 12:00-0500 Respiratory rate 18 /min [facility] 05-07-2024 12:00-0500 SaO2% (BldA) [Mass fraction] 99 % [facility] 05-07-2024 12:00-0500 Systolic blood pressure 106 mm[Hg] [facility] 10-03-2023 12:15-0400 SaO2% (BldA) [Mass fraction] 98 % [facility] [employer] 10-03-2023 12:13-0400 Diastolic blood pressure 59 mm[Hg] [facility] 10-03-2023 12:13-0400 Systolic blood pressure 111 mm[Hg] [facility] 10-03-2023 10:55-0400 Body temperature 98.1 [degF] [facility] 10-03-2023 10:55-0400 Heart rate 98 /min [facility] [employer] 10-03-2023 10:55-0400 Respiratory rate 18 /min [facility] 07-19-2023 14:40-0500 Body height 182.88 cm TRANSFUSION AIDE Gabrielle Moreno Work Phone: [facility] 07-19-2023 14:40-0500 Body weight 74.84 kg TRANSFUSION AIDE Gabrielle Moreno Work Phone: [facility] 07-17-2023 13:06-0500 Diastolic blood pressure 76 mm[Hg] Jeremiah Torres [facility] 07-17-2023 13:06-0500 Heart rate 88 /min Jeremiah Torres [facility] 07-17-2023 13:06-0500 Mean blood pressure 92 mm[Hg] Jeremiah Torres [facility] 07-17-2023 13:06-0500 Respiratory rate 15 /min Jreemiah Torres [facility] 07-17-2023 13:06-0500 SaO2% (BldA) [Mass fraction] 99 % Jeremiah Torres [facility] 07-17-2023 13:06-0500 Systolic blood pressure 125 mm[Hg] Jeremiah Torres [facility] 07-17-2023 10:38-0500 Body temperature 98.6 [degF] Jeremiah Torres [facility] 07-17-2023 10:38-0500 Diastolic blood pressure 74 mm[Hg] Jeremiah Torres [facility] 07-17-2023 10:38-0500 Heart rate 91 /min Jeremiah Torres [facility] 07-17-2023 10:38-0500 Respiratory rate 18 /min Jeremiah Torres [facility] 07-17-2023 10:38-0500 SaO2% (BldA) [Mass fraction] 98 % Jeremiah Torres [facility] 07-17-2023 10:38-0500 Systolic blood pressure 123 mm[Hg] Jeremiah Torres [facility] 12-25-2019 00:10-0400 BP Diastolic 85 mm[Hg] [facility] [place] 12-25-2019 00:10-0400 BP Systolic 120 mm[Hg] [facility] [place] 12-25-2019 00:10-0400 Pulse (Heart Rate) 84 /min [facility] 12-25-2019 00:10-0400 Pulse Oximetry 100 % [facility] [place] 12-25-2019 00:10-0400 Respiratory Rate 16 /min [facility] [employer] [facility], [place] 12-24-2019 23:31-0400 Body Temperature 98.01 [degF] [facility] [place] Encounters Encounter Date Encounter Type Care Provider Facility Start: 09-09-2024 End: 09-09-2024 Patient encounter procedure Dc Dailey DO Work Phone: [facility] Work Phone: Start: 09-09-2024 End: 09-09-2024 ambulatory Dc Dailey DO Work Phone: [facility] Work Phone: Start: 09-08-2024 End: 09-08-2024 ambulatory Dc Dailey DO Work Phone: [facility] Work Phone: Start: 09-08-2024 End: 09-08-2024 Patient encounter procedure Dc Dailey DO Work Phone: [facility] Work Phone: Start: 08-20-2024 End: 08-20-2024 Patient encounter procedure Dc Dailey DO Work Phone: [facility] [place] Work Phone: Start: 08-20-2024 End: 08-20-2024 ambulatory Dc Dailey DO Work Phone: [facility] Work Phone: Start: 08-20-2024 Encounter for genera l adult medical examination without abnormal findings Dc Dailey [facility] Start: 08-14-[address] [facility] Start: 08-14-2024 End: 08-14-2024 ambulatory [facility] Work Phone: Start: 08-14-2024 End: 08-14-2024 Patient encounter procedure [facility] Work Phone: Start: 05-07-2024 End: 05-07-2024 Emergency department patient visit [facility] ED Comment on above: Acute sinusitis, rec urrence not specified, unspecified location (Primary Dx) Start: 10-03-2023 End: 10-03-2023 Emergency department patient visit [facility] ED Comment on above: Strep pharyngitis (P rimary Dx) Start: 09-21-2023 End: 09-21-2023 ambulatory NON STAFF [facility] Work Phone: Start: 09-21-2023 End: 09-21-2023 Patient encounter procedure MAITE Moreno Work Phone: [facility] [address] Work Phone: Start: 09-17-2023 End: 10-17-2023 ambulatory GHAZALA BANSAL [facility] Start: 08-28-2023 End: 09-17-2023 ambulatory [facility] Start: 08-24-2023 End: 08-24-2023 ambulatory NON STAFF [facility] Work Phone: Start: 08-24-2023 End: 08-24-2023 Patient encounter procedure TRANSFUSION AIDE Gabrielle Moreno Work Phone: [facility] [address] Work Phone: Start: 08-07-2023 End: 08-17-2023 ambulatory [facility] Start: 08-03-2023 End: 08-03-[address] [facility] Work Phone: Start: 08-03-2023 End: 08-03-2023 Patient encounter procedure TRANSFUSION AIDE Gabrielle Moreno Work Phone: [facility] [address] Work Phone: Start: 07-27-2023 End: 07-27-[address] [facility] Work Phone: Start: 07-27-2023 End: 07-27-2023 Patient encounter procedure TRANSFUSION AIDE Gabrielle Moreno Work Phone: [facility] [address] Work Phone: Start: 07-24-2023 End: 07-24-[address] [facility] Work Phone: Start: 07-24-2023 End: 07-24-2023 Patient encounter procedure TRANSFUSION AIDE Gabrielle Moreno Work Phone: [facility] [address] Work Phone: Start: 07-19-2023 End: 07-19-2023 ambulatory TRANSFUSION AIDE Gabrielle Moreno Work Phone: [facility] Work Phone: Start: 07-19-2023 End: 07-19-2023 Departed Referred TRANSFUSION AIDE Gabrielle Moreno Work Phone: [facility] Work Phone: Start: 07-19-2023 End: 07-19-2023 Patient encounter procedure MAITE Moreno Work Phone: [facility] Work Phone: Start: 07-19-2023 End: 07-19-2023 Patient encounter procedure MAITE Moreno Work Phone: [facility]- Start: 07-17-2023 End: 07-17-2023 Emergency department patient visit Jeremiah Torres Facility:[facility] Start: 07-17-2023 End: 07-17-2023 Emergency department patient visit Jeremiah Torres [facility] Start: 05-29-2023 End: 05-29-2023 Emergency department patient visit PALLAVI THOMPSON [facility] Start: 11-09-2021 End: 11-09-2021 ambulatory BRYCE RODRIGUEZ Facility: Start: 12-24-2019 End: 12-25-2019 Emergency department patient visit Brian A Aiden Work Phone: [facility] ED Comment on above: Strain of right shou lder, initial encounter (Primary Dx) Procedures Date Procedure Procedure Detail Performing Clinician Start: 09-09-2024 Plain X-ray of right elbow Dc Dailey DO Work Phone: Start: 09-09-2024 Plain X-ray of right hand Dc Dailey DO Work Phone: Start: 05-07-2024 COVID-19JOANN PA-C Work Phone: Start: 10-03-2023 SANDY-JOANN Mercado MD Work Phone: Start: 10-03-2023 End: 10-03-2023 Iaad ia streptococcus group a Pallavi Thompson MD Work Phone: Start: 07-19-2023 Plain X-ray of right wrist MAITE Moreno Work Phone: Plan of Treatment Date Care Activity Detail Author Start: 09-09-2024 Adenosine monophosphate.cyclic [Moles/volume] in Serum or Plasma [facility] Start: 09-09-2024 Rheumatoid factor [Units/volume] in Serum or Plasma [facility] Start: 09-09-2024 [facility] Start: 03-24-2024 DTaP/Tdap/Td vaccine (2 - Td or Tdap) DTaP/Tdap/Td vaccine (2 - Td or Tdap) [facility] Start: 02-17-2024 COVID-19 Vaccine ( season) COVID-19 Vaccine ( season) [facility] Start: 01-17-2024 Influenza vaccination [facility] Start: 02-17-2020 Influenza vaccination Flu vaccine (#1) [place] Start: 2007 DTaP/Tdap/Td vaccine (1 - Tdap) DTaP/Tdap/Td vaccine (1 - Tdap) [place] Start: 2007 Hepatitis B vaccine (1 of 3 - 19+ 3-dose series) Hepatitis B vaccine (1 of 3 - 19+ 3-dose series) [facility] Start: 2006 Hepatitis C screening Hepatitis C screen [facility] Start: 2003 HIV screening HIV screen [facility] Start: 2001 Varicella vaccine (1 of 2 - 13+ 2-dose series) Varicella vaccine (1 of 2 - 13+ 2-dose series) [facility] Start: 2000 Depression Screen Depression Screen [facility] Start: 1994 Pneumococcal 0-64 years Vaccine (1 of 1 - PPSV23) Pneumococcal 0-64 years Vaccine (1 of 1 - PPSV23) [place] Start: 1994 Pneumococcal 0-64 years Vaccine (1 of 2 - PCV) Pneumococcal 0-64 years Vaccine (1 of 2 - PCV) [facility] Start: 1989 Varicella vaccine (1 of 2 - 2-dose childhood series) Varicella vaccine (1 of 2 - 2-dose childhood series) [facility] Start: 1988 COVID-19 Vaccine (#1) COVID-19 Vaccine (#1) [facility] Start: 1988 Hepatitis B vaccine (1 of 3 - 3-dose series) Hepatitis B vaccine (1 of 3 - 3-dose series) [facility] Adenosine monophosphate.cyclic [Moles/volume] in Serum or Plasma [facility] Comprehensive metabo lic 1999 panel - Serum or Plasma [facility] Homogenous nuclear A b pattern [Titer] in Serum [facility] Nuclear Ab [Titer] i n Serum [facility] Rheumatoid factor [Units/volume] in Serum or Plasma [facility] XR Elbow - right GE [address] [facility] XR Hand - right GE 3 Views [facility] Immunizations Immunization Date Immunization Notes Care Provider Sonia helton 03-24-2014 tetanus toxoid, redu sonam diphtheria toxoid, and acellular pertussis vaccine, adsorbed Jeremiah Torres [facility] Payers Date Payer Category Payer Unknown 2023 Unknown [id number] 2023 Worker's Compensation [id number] 2022 Unknown [id number] 2020 Worker's Compensation [id number] 2019 Unknown [facility] [place] [id number] xxxxxxxxxx 2019-Present [address] [address] [place] [address] xxxxxxxxxx [id number] 1988 Unknown [id number] 1988 Unknown [id number] 1988 Unknown [id number] 286 1988 Unknown [id number] 286 1988 Unknown [id number] 286 1988 Unknown [id number] 73 1988 Unknown [id number] 73 1988 Unknown [id number] 73 1959 Self-pay Unknown [id number] Unknown [id number] 31 Unknown [id number] 31 Unknown [id number] 31 Social History Date Type Detail Facility Start: 12-24-2019 [facility] History of tobacco use Cigarette Smoker [place], [place] Start: 12-24-2019 End: 10-03-2023 Cigarettes smoked current (pack per day) - Reported [place], [place] Start: 12-24-2019 End: 05-07-2024 Alcohol intake Current non-drinker of alcohol (finding) [place] Start: 1990 Sex Assigned At Not on file [place], [place] Exposure to SARS-CoV -2 (event) Unable to assess [place] Start: 07-17-2023 Tobacco smoking status Heavy t obacco smoker (finding) [facility] Start: 06-18-2008 End: 10-03-2023 Sex Assigned At Male [facility] Start: 1990 Sex Assigned At Male Chai [facility] Start: 12-24-2019 Tobacco use and exposure Former smokeless tobacco user [employer] How often to you hav e a drink containing alcohol? Never @Pay How many standard drinks containing alcohol do you have on a typical day? Patient does not drink @Pay Start: 08-14-2024 End: 08-14-2024 Tobacco smoking status NHIS Smoker (finding) [facility] Start: 08-14-2024 End: 09-10-2024 Sex Male (finding) [facility] Functional Status Date Assessment Result Facility 07-17-2023 Functional Status N/A [facility] Clinical Notes 07-17-2023 to 08-14-2024 Note Date & Type Note Facility 08-14-2024 Evaluation note Authored August 14, 2024 12:45pm The above note written by __ _Raul Chang____ acting as human recorder, note dictated by Dr. Srivastava .I performed the above HPI, ROS, and Examination. I formulated and dictated the treatment plan and was present for entire encounter. Dc Dailey D.O. [facility] Work Phone: 1(613) 335-413302-27-2025 Evaluation note* Author Dc Dailey [facility] Authored August 14, 2024 12:45pm The above note written by __ _Raul Chang____ acting as human recorder, note dictated by Dr. Srivastava .I performed the above HPI, ROS, and Examination. I formulated and dictated the treatment plan and was present for entire encounter. Dc Dailey D.O. Author Dc Dailey [facility] Authored September 08, 2024 6:1 9pm The above note written by __ _Raul Chang____ acting as human recorder, note dictated by Dr. Srivastava .I performed the above HPI, ROS, and Examination. I formulated and dictated the treatment plan and was present for entire encounter. Dc Dailey D.O. 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 ?Change your dressing as told by your [...] your health care provider. General instructions Take tgfq-utk-yrgrsuz and prescription medicines only as told by your health care provider. If you were prescribed an antibiotic, take it as told by your health care provider. Do not stop taking the antibiotic even if you start to feel better. Do not use any products that contain nicotine or tobacco, such as cigarettes, e- cigarettes, and chewing tobacco. These can delay healing. If you need help quitting, ask your health care provider. Keep all follow-up visits as told by your health care provider. This is important. These include PTand OT visits. Contact a health care provider [...] provider. Document Revised: 09/22/2021 Document Reviewed: 09/22/2021 [email or web address] Patient Education 2022 [employer]. Follow Up Care 07/17/2023 10:31:30 With:Occupational Health: [facility] [phone] Address:Unknown When:07/20/2023 12:45:06 [facility]01-30-2024 Evaluation + Plan noteExtracted from: Title:ED Note Author:Dylon Morfin PA-C te:07/17/23 [...] Application Wrist XR Forearm 2 Views Right [facility] noteNo assessment information available [facility] Work Phone: Evaluation note* Diagnosis Strep pharyngitis- Primary Streptococcal sore throat documented in this encounter [facility] note* Diagnosis Acute sinusitis, recurrence not specified, unspecified location- Primary documented in this encounter [facility] note* Diagnosis Onset Date Resolution Status Admit Date Eczema acute August 14, 2024 11:06am Nicotine dependence acute Febru phoebe2024 11:06am [facility] Work Phone: Hospital course Narrative No data available for this section [facility]* Attachments The following attachments cannot be sent through Care Everywhere. * [facility] ([place] Attachments The following attachments cannot be sent through Care Everywhere. * Sinusitis: Acute (Kazakh) [facility] No data available for this section [facility] Discharge Instructions * Instructions* Brian Wolfe [...] sent through Care Everywhere. 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 Advance Directives and Living Will Power of Air Drill Operator Advance Directive Response Recorded Date/ Time Advance Directives No July 20, 2023 5:16pm Advance Directive Response Recorded Date/ Time Advance Directives No July 20, 2023 6:16pm Summary Purpose Family History No Family History Records Found Relationship Condition Age at Onset Recorded Date/T kendra Not Specified Malignant neoplasm Unknown Relationship Condition Age at Onset Recorded Date/T kendra mother Malignant neoplasm Unknown maternal grandmother Malignant neoplasm Unknown Chief Complaint and Reason for Visit Chief Complaint Admit Date to get established August 14, 2024 11:06am Z00.00 August 20, 2024 8:28 am Reason for Visit Admit Date Eczema August 14, 2024 11:06am Nicotine dependence August 14, 2024 11:06am Chief Complaint [facility] Initial Right [place] nd/Forearm Injury S67.21XA S67.21XA Chief Complaint [facility] Initial Right [place] nd/Forearm Injury S67.21XA S67.21XA S67.21XA S50.11XA, S58.81XA Chief Complaint [facility] Initial Right [place] nd/Forearm Injury S67.21XA S67.21XA S67.21XA S50.11XA S50.11XA, S57.81XA Chief Complaint [facility] Initial Right [place] nd/Forearm Injury S67.21XA S67.21XA S67.21XA S50.11XA S50.11XA, S57.81XA S50.11XA Chief Complaint Admit Date to get established August 14, 2024 11:06am Chief Complaint Admit Date to get established August 14, 2024 11:06am Z00.00 August 20, 2024 8:28 am eczema/arthritis pain September 08, 2024 5 :33pm Reason for Visit Admit Date Eczema August 14, 2024 11:06am Nicotine dependence August 14, 2024 11:06am Eczema September 08, 2024 5:3 3pm Lateral epicondylitis of right elbow Mar 2024 5:33pm Leukocytosis September 08, 2024 5:3 3pm Polyarthralgia September 08, 2024 5:3 3pm Chief Complaint Admit Date to get established August 14, 2024 11:06am Z00.00 August 20, 2024 8:28 am eczema/arthritis pain September 08, 2024 5 :33pm M25.50 September 09, 2024 11: 12am Additional Source Comments Reason for Visit (unrecogniz [...] and content) DATE CREATED AUTHOR 11/10/2021 [facility] DATE CREATED AUTHOR AUTHOR'S ORGANIZ ATION 10/07/2023 [facility] DATE CREATED AUTHOR AUTHOR'S ORGANIZ ATION 10/18/2023 [facility] DATE CREATED AUTHOR AUTHOR'S ORGANIZ ATION 05/10/2024 [facility] DATE CREATED AUTHOR AUTHOR'S ORGANIZ ATION 09/14/2024 [facility] Care Teams (unrecognized sec tion and content) Team Status: Active Member Role Status Dates Dc Dailey DO Primary Care Provider Active Team Status: Inactive Member Role Status Dates Dc Dailey DO Primary Care Provide r, Attending Provider Active Start: August 14, 2024 End: August 14, 2024 Team Status: Active Member Role Status Dates [...] BE BASED ON THE PRIMARY CLINICAL RECORDS. [facility] [employer] [facility]. provides no warranty or guarantee of the accuracy or completeness of information in this document.
== END 2024-09-15 10:11 | disposition home or self-care (01) ==
PROVIDERS: Emergency Provider Emergency Medicine; PCP Family Medicine
DX: M25.521 Pain in right elbow (principal); F17.200 Nicotine dependence, unspecified, uncomplicated
CPT/HCPCS: 99283

== ENCOUNTER 2024-12-05 07:47 | Emergency (ER) | payer BC, SELFPAY ==
--- OUTSIDE RECORDS SUMMARY | 2024-08-14 05:00 | XMS_ITS ---
Author Organization [facility] in [place] Address [address] [place] [address] Care Team Providers Care Cigarette Examiner Name Role Phone Miguelito Brantley Primary Care Provider [phone] Ghazala Orozco [phone] Allergies Allergen (clinical drug ingredient) Drug/Non Drug Allergy documented on EMR Reaction Allergy Type Onset Date Status Vicodin Unknown Drug Allergy Active Penicillin anaphylaxis Drug Allergy Acti ve Night Time Cold & Cough hives Drug Allergy Active REASON FOR VISIT No pcp in over 20 years --eczema Medications Medication SIG (Take, Route, Frequency, Duration) Notes Start Date End Date Status Triamcinolone Acetonide 0.5 % 1 application Externally Twice a day prn 08/14/2024 Active Social History Tobacco Use: Social History Observation Description Date Details (start date - stop date) Current Smoker 08/15/2004 - NA Tobacco Control (Standard) Question Answer Notes Tobacco use: Current smoker When did you start smoking? 08/15/2004 How often do you smoke cigarettes? Every day How many cigarettes a day do you smoke? 11-20 AUDIT-C (Standard) Question Answer Notes Did you have a drink containing alcohol in the p ast year? No Points 0 Interpretation Negative Problems Problem Type SNOMED Code ICD Code Onset Dates Problem Status W/U Status Risk Notes Problem Smoker (F17.200) Active confirmed Vital Signs Weight 156 lbs 08/14/2024 Height 72 in 08/14/2024 Blood pressure systolic 122 mm Hg 08/14/19 25 Blood pressure diastolic 76 mm Hg 025 BMI 21.16 kg/m2 08/14/2024 Encounters Encounter Location Date Provider Diagnosis [facility] [address] [place] [address] 08/14/2024 Ghazala Shane Eczema L30.9 and Smoker F17.200 Assessments Encounter Date Diagnosis (ICD Code) Assessment Notes Treatment Notes Treatment Clinical Notes Section Notes 08/14/2024 Eczema (ICD-10 - L30.9) continue with emollients fu as needed 08/14/2024 Smoker (ICD-10 - F17.200) discussed cessation patient states he has been tapering Plan Of Treatment Medication Medication Name Sig Start Date Stop Date Notes Triamcinolone Acetonide 0.5 % 1 applicat ion Externally Twice a day prn 08/14/2024 Treatment Notes Assessment Notes Eczema continue with emollients fu as needed Smoker discussed cessation patient states he has been tapering Next Appt Details Follow Up: 1 Year,prn, Reaso n: Progress Notes * Bob MOSSOB:1990 ([age] yo M)Acc No.[id number]:08/14/2024 New Patient Patient: Gabriele CLINE Provider: Ratna Lynn ([facility]), MANAGER STERILE :1990 A ge:34 Y S ex:Male Date:08/14/2024 Address:[address] [place] [address] Pcp:Miguelito Brantley Check In:08:52 AM ESTCheck O ut:09:25 AM EST Subjective: * Chief Complaints: * 1 . No pcp in over 20 years --eczema. 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 D epression Screening: PHQ-2 (2015 Edition) L ittle interest or pleasure in doing things??Not at all F eeling down, depressed, or hopeless? N ot at all T otal Score 0 * ROS: G eneral/Constitutional: Fever d enies. H eadache d enies. W eight loss?denies. O phthalmologic: Discharge d enies. E ye Pain d enies. I tching and redness d enies. E NT: Nasal discharge d enies. N gerard congestion d enies.?Sore throat d enies. C ardiovascular: Chest tightness/ heavy pressure d enies. R apid heart rate d enies. S welling of extremities d enies. C hest pain d enies. ? R espiratory: Productive cough d enies. C hest pain d enies. C ough d enies. S hortness of breath d enies. W heezing d enies. ? G astrointestinal: Abdominal pain d enies. C onstipation d enies. D ecreased appetite d enies. D iarrhea d enies. N ausea d enies. V omiting?denies. G enitourinary: Urinary incontinence d enies. P ainful urination d enies. M usculoskeletal: Back pain d enies. N jamaal pain d enies. M uscle aches d enies. S kin: Patient complaining of e czema, worse in winter, recent flare, improved with steroid shot. R luis d enies. S kin lesion(s) d enies. ? * Active Problem List F17.200 Smoker Modified On:08/14/2024W/U Status:confirmed * Medical History: M edical History Verified. * Family History: F ather: alive. M other: alive, lung cancer, diagnosed with Other malignant neoplasm of unspecified site. S ister(s): alive. D aughter(s): alive. 2 sister(s) . 2 daughter(s) . .? * Social History: T obacco Use: T obacco Control (Standard) T obacco use: C urrent smoker W hen did you start smoking? 0 08/15/2004 H ow often do you smoke cigarettes? E very day H ow many cigarettes a day do you smoke? 1 1-20 D rug/Alcohol: A SHARONA-C (Standard) D id you have a drink containing alcohol in the past year? N o P oints 0 I nterpretation N egative * Medications: N one * Allergies: P enicillin: anaphylaxis, Vicodin, Night Time Cold & Cough: hives. Objective: * Vitals: W t:156lbs, Ht: 72 in, BP:122/76mm Hg, BMI:21.16Index, Ht-cm: 182.88 cm, Wt-k.76 kg. * Examination: G eneral Examinations: GENERAL APPEARANCE: a lert and oriented, i n no acute distress poor dentition. EYES: c onjunctiva normal, sclera non-icteric. NOSE: n ormal external appearance. LUNGS: c lear to auscultation bilaterally. CARDIO: r egular rate and rhythm, S1, S2 normal. MUSCULOSKELETAL: G ait and station normal. SKIN: w arm and dry, eczema to legs, neck noted. Assessment: * Assessment: 1. E czema - L30.9 (Primary) 2 . S dee - F17.200 Plan: * Treatment: 2. S dee Notes: discussed cessation patient states he has been tapering * Preventive Medicine: Screenings/Counseling: T OBACCO ACTION PLAN Patient counselled on the dangers of tobacco use and urged to quit. . * Follow Up: 1 Year,prn * * Electronically signed by Kelsey Lynn , [place], WATER RESOURCES PROJECT MANAGER.MANAGER [id number] on 08/14/2024 at 12:43 PM EST Sign off status: Completed Visit Status: C HK (Check Out) true * Provider: Ratna Lynn ([facility]), MANAGER STERILE Date: 0 08/14/2024 Generated for Leonardo childs/Vlad/Michaelitting on: 0 12/05/2024 07:53 AM EDT History and Physical Notes * HPI (History of Present Illness) Category Sub-Category Detail Notes Category Not es General steroid shot on Sunday for eczema, feeling better eczema lotion in past and epsom salt baths, hemp seed oil childhood asthma smokes no allergies hx migraines, 1-2 a month, takes nap and helps and OTC meds and functional Prilosec otc for heartburn prn nicotine and a lot caffeine [employer]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 Depression Screening PHQ-2 (2015 Edition) Little interest or pleasure in doing things?: Not at all Feeling down, depressed, or hopeless?: N ot at all Total Score: 0 Examination Category Sub-Category Detail Notes Category Not es General Examinations GENERAL APPEARANCE: alert a nd oriented, in no acute distress poor dentition EYES: conjunctiva normal, sclera non-icteric EARS: NOSE: normal external appe arance THROAT: CARDIO: regular rate and rhy thm, S1, S2 normal LUNGS: clear to auscultatio n bilaterally ABDOMEN: SKIN: warm and dry, eczema to legs, neck noted BACK: MUSCULOSKELETAL: Gait and station nor mal LYMPH NODES:
[2024-12-05 07:54] VITALS: BP 105/66; PULSE 84; TEMP 36.7; O2SAT 100; BMI 20.3
--- OUTSIDE RECORDS SUMMARY | 2024-12-05 07:54 | XMS_ITS | Clinical Summary ---
Author Organization [facility] Address [address] [place] [address] Care Team Providers Care Dealmaker Name Role Phone Unavailable Primary Care Provider Unavailabl e Allergies Active Allergy Reactions Criticality Noted Date Comments Penicillins Anaphylaxis High 01/14/2017 Hydrocodone-Acetaminophen Low 04/25/2018 Medications albuterol sulfate HFA (PROVENTIL HFA) 108 (90 Base) MCG/ACT inhaler Inhale 1-2 puffs into the lungs every 4 hours as needed for Wheezing or Shortness of Breath (Space out to every 6 hours as symptoms improve) Space out to every 6 hours as symptoms improve. 1 Inhaler 7 Active Aspirin-Acetami nophen-Caffeine (EXCEDRIN MIGRAINE PO) Take by mouth Act сергей ibuprofen (IBU) 600 MG tablet Take 1 tablet by mouth every 6 hours as needed for Pain 120 tablet 4 Active fluticasone (FLONASE) 50 MCG/ACT nasal spray 2 sprays by Each Nostril route daily 16 g 4 Active loratadine-pseu doephedrine (CLARITIN-D 12HR) 5-120 MG per extended release tablet Take 1 tablet by mouth 2 times daily 60 tablet 5 4 Active Active Problems No known active problems Social History Tobacco Use Types Packs/Day Years Used Date Smoking Tobacco: Every Day Cigarettes Smokeless Tobacco: Former Alcohol Use Standard Drinks/Week Comments No 0 (1 standard drink = 0.6 oz pur e alcohol) AUDIT-C Answer Date Recorded Q1: How often do you have a drink containing alc ohol? 2-4 times a month 05/07/2024 Q2: How many drinks containi ng alcohol do you have on a typical day when you are drinking? 1 or 2 05/07/2024 Q3: How often do you have si x or more drinks on one occasion? Less than monthly 05/07/2024 Sex and Gender Information Value Date Recorded Sex Assigned at Not on file Legal Sex Male 10:53 PM EST Gender Identity Not on file Sexual Orientation Not on file Last Filed Vital Signs Vital Sign Reading Time Taken Comments Blood Pressure 106/76 05/07/2024 12:00 PM EST Pulse 88 05/07/2024 12:00 PM EST Temperature 36.7 C (98 F) 05/07/2024 12:00 PM EST Respiratory Rate 18 05/07/2024 12:00 PM EST Oxygen Saturation 99% 05/07/2024 12:00 PM EST Inhaled Oxygen Concentration - - Weight 74.8 kg (165 lb) 01/14/2017 10:24 PM EDT Height 182.9 cm (6') 01/14/2017 10:24 PM EDT Body Mass Index 22.38 01/14/2017 10:24 PM EDT Plan of Treatment Health Maintenance Due Date Last Done Comments Depression Screen 2000 Varicella vaccine (1 of 2 - 13+ 2-dose series) 2001 HIV screen 2003 Hepatitis C screen 2006 Hepatitis B vaccine (1 of 3 - 19+ 3-dose series) 2007 Pneumococcal 0-49 years Vacc ine (1 of 2 - PCV) 2007 COVID-19 Vaccine ( - 2023-2 5 season) 2024 DTaP/Tdap/Td vaccine (2 - Td or Tdap) 03/24/2024 03/24/2014 Flu vaccine (Season Ended) 2025 HPV vaccine Aged Out No longer eligi ble based on patient's age to complete this topic Hepatitis A vaccine Aged Out No longe r eligible based on patient's age to complete this topic Hib vaccine Aged Out No longer eligi ble based on patient's age to complete this topic Meningococcal (ACWY) vaccine Aged Out No longer eligible based on patient's age to complete this topic Meningococcal B vaccine Aged Out No l onger eligible based on patient's age to complete this topic Polio vaccine Aged Out No longer elig ible based on patient's age to complete this topic Insurance BCBS OUT OF STATE
--- OUTSIDE RECORDS SUMMARY | 2024-12-05 07:54 | XMS_ITS | Patient Health Record ---
Author Organization [facility] Address [address] [place] [address] Care Team Providers Care Sawmill Hand Name Role Phone [place] Unavailable [phone] xxAnnelise Luke Unavailable Allergies Allergen (clinical drug ingredient) Drug/Non Drug Allergy documented on EMR Reaction Allergy Type Onset Date Status penicillin (uncoded) Unknown Allergy Active Vicodin (uncoded) Unknown Allergy Ac tive acetaminophen / dextromethorphan / doxylamine Nyquil Cold and Flu Unknown Drug Allergy Active Reason For Referral No Information Medications Medication SIG (Take, Route, Frequency, Duration) Notes Start Date End Date Status Mobic 15 mg 1 tab(s) orally once a day for 30 days 11/03/2024 Active Social History Tobacco Use: Social History Observation Description Date Details (start date - stop date) Current Smoker NA - NA AUDIT-C (Standard) Question Answer Notes Did you have a drink containing alcohol in the p ast year? No Points 0 Interpretation Negative Tobacco Control (Standard) Question Answer Notes Tobacco use: Current smoker Problems Problem Type SNOMED Code ICD Code Onset Dates Problem Status W/U Status Risk Notes Problem Left wrist pain (M25.532) Active confirmed Problem 563396555946171 Right lateral epicondylitis (M77.11) Active confirmed Problem Pain of left hand (830766577593766) Left hand pain (M79.642) Active confirmed Problem 29783190284662167 Sprain of metacarpophalangeal joint of left index finger, subsequent encounter (S63.651D) Active confirmed Problem [id number] Injury of left hand, initial encounter (S69.92XA) Active confirmed Vital Signs Height 6'0 in 11/03/2024 Weight 150 lbs 11/03/2024 BMI 20.34 11/03/2024 Encounters Encounter Location Date Provider Diagnosis [facility] [address] [place] [address] 01/02/2024 [place] Sprain of metacarpophalangeal joint of left index finger, subsequent encounter S63.651D [facility] [email or web address] [address] [place] [address] 09/22/2024 [facility] Right lateral epicondylitis M77.11 [facility] [address] [facility] [place] [address] [place] [address] 11/03/2024 [facility] Right lateral epicondylitis M77.11 Assessments Encounter Date Diagnosis (ICD Code) Assessment Notes Treatment Notes Treatment Clinical Notes Section Notes 01/02/2024 Sprain of metacarpophalangeal joint of left index finger, subsequent encounter (ICD-10 - S63.651D) 09/22/2024 Right lateral epicondylitis (ICD-10 - M77.11) 11/03/2024 Right lateral epicondylitis (ICD-10 - M77.11) 01/02/2024 Other For his index carpometacarpal joint sprain he has improved. No additional treatment is needed. 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 He will follow up on an as-needed basis. Import medication 09/22/2024 Other For the patient 's right lateral epicondylitis we discussed various conservative treatments. Patient would like to proceed with a corticosteroid injection today which I did provide for him. Patient is not diabetic. I also recommended a counterforce strap to use with activity. Will see him back in 6 weeks for reevaluation. 11/03/2024 Other Today I am kelley tee to place patient on a prescription anti-inflammatory, Mobic, medication precautions reviewed. I recommended continuing with the use of the counterforce strap at work. We did discuss physical therapy and patient would like to try this. We will see him back in 2 months for reevaluation. Plan Of Treatment Pending Test Test Name Order Date [facility]- HAND 3 VIEW LEFT [id number] 11/21/2023 [facility]- PT/OT EVAL AND TREAT 3X/WEEK FOR 6 WEEKS 11/03/2024 MRI : Hand W/O Contrast Left - [id number] 10/2023 Next Appt Details Provider Name:[place] and, 12/29/2024 08:00:00 AM, [address] [facility], [address], [place], [address], Insurance Providers Payer Name Payer Address Payer Phone Subscriber Number Group Number Insured Name Patient Relationship to Insured Coverage Start Date Coverage End Date [facility] [address] [place] [address] [id number] MIRYAM POSADAS Spouse - patient is the spouse of the insured 5 Medications Administered Medication Instructions Date of Administration Dosage Notes BUPIVACAINE 09/22/2024 2 mL Depo-Medrol 09/22/2024 1 mL lidocaine 09/22/2024 2 mL Medical (General) History Medical History History ICD Code Drug Allergies
--- OUTSIDE RECORDS SUMMARY | 2024-12-05 07:54 | XMS_ITS | CCD ---
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 Name Role Phone Unavailable Primary Care Provider UnavailBRYCE Mccord Attending Unavailable BRYCE RODRIGUEZ Consulting Unavailable BRYCE RODRIGUEZ Admitting Unavailable REQUEST, NONE LISTED Primary Care Unavaila ble NONE, XXXX Primary Care Physician Unavailab MAITE Palm Attending Provider NON STAFF Primary Care Provider UnavailMAITE Light Attending Provider MAITE Moreno Attending Provider NON STAFF Primary Care Provider UnavailMAITE Light Attending Provider MAITE Cochran Attending Provider Unavailable Primary Care Provider UnavailJeremiah Lee Attending Unavailable PALLAVI THOMPSON Attending Unavailable Dc Dailey DO Primary Care Provider Dc Dailey DO Attending Provider Dc Dailey Admitting Unavailable Dc Dailey Attending Unavailable Dc Dailey Primary Care Unavailable Dc Dailey Admitting Unavailable Dc Dailey Attending Unavailable Dc Dailey Primary Care Unavailable Ghazala Cochran Admitting Unavailable Ghazala Cochran Attending Unavailable NON STAFF Primary Care Unavailable RICHARD YADAV Referring Unavailable NO PCP, NO PCP Primary Care Unavailable RICHARD YADAV Referring Unavailable NO PCP, NO PCP Primary Care Unavailable Allergies Allergy Classification Reported Allergen(s) Allergy Type Date of Onset Reaction(s) Facility (4 sources) Acetaminophen / HYDROcodone; Translations: [HYDROCODONE-ACETAM INOPHEN] Drug Allergy 04-25-20 18 [facility], [place] (13 sources) Penicillins; Translations: [penicillins] Propensity to adverse reactions to drug 01-15-20 17 Anaphylaxis [place], [place] (1 source) Acetaminophen / HYDROcodone Drug Allergy 04-22-20 17 [facility] (1 source) Acetaminophen / Pseudoephedrine Drug Allergy 12-13-19 17 [facility] (1 source) diphenhydrAMINE Drug Allergy [facility] (1 source) Penicillins Drug allergy (disorder) 07-16-19 14 [facility] (2 sources) NyQuil; Translations: [NYQUIL] Drug allergy (disorder) 12-13-19 17 [facility] (10 sources) Acetaminophen; Translations: [acetaminophen] Drug Allergy 07-19-19 24 migraine, [facility] (10 sources) Dextromethorphan; Translations: [dextromethorphan] Drug Allergy 07-19-19 24 [facility] (10 sources) diphenhydrAMINE; Translations: [diphenhydramine] Drug Allergy 07-19-19 24 [facility] (10 sources) Doxylamine; Translations: [doxylamine] Drug Allergy 07-19-19 24 [facility] (10 sources) HYDROcodone; Translations: [hydrocodone] Drug Allergy 07-19-19 24 [facility] (10 sources) Pseudoephedrine; Translations: [pseudoephedrine] Drug Allergy 07-19-19 24 [facility] (2 sources) Penicillins Propensity to adverse reactions to drug 01-15-20 17 Anaphylaxis [facility] (1 source) Penicillins Drug allergy (disorder) 09-09-19 25 [facility] (1 source) diphenhydrAMINE; Translations: [DIPHENHYDRAMINE HCL] Drug Allergy 04-09-20 [facility] (1 source) RTAOJKUBIAY-DO-TQMX AMINOPHEN; Translations: [YBVZTPMYLIG-YI-YLF TAMINOPHEN] Propensity to adverse reactions to drug [...] tablet 0 12/24/2019 10/03/2023 Discontinued (LIST CLEANUP) [id number] actuat albuterol 0.09 mg/actuat metered dose [...] symptoms improve. 1 Inhaler 0 01/14/2017 Active Vntrbuo-Sdrssatqnoglc-Mtklii ne (EXCEDRIN MIGRAINE PO) (2 sources) Aspirin-Acetamin [...] injury of unspecified forearm, initial encounter] Onset: 4 Episodic Diseases of white blood cells (5 sources) Leukocytosis; Translations: [Elevated white blood cell count, unspecified] Onset: 5 09-08-2024 Chronic Headache; including migraine (1 source) Other migraine, not intractable, without status migrainosus; Translations: [Other migraine, not intractable, without status migrainosus] Onset: 3 Chronic Headache; including migraine (3 sources) Headache; including migraine; Translations: [HEADACHE UNSPECIFIED] Onset: 2 Other connective tissue disease (2 sources) Lateral epicondylitis of right humerus; Translations: [Lateral epicondylitis, right elbow] 09-08-2024 Episodic Other connective tissue disease (3 sources) Lateral epicondylitis, right elbow; Translations: [Lateral epicondylitis] Onset: 5 09-08-2024 Episodic Other non-traumatic joint disorders (2 sources) Multiple joint pain; Translations: [Pain in unspecified joint] 09-08-2024 Episodic Other non-traumatic joint disorders (2 sources) Pain in unspecified joint; Translations: [Pain in joint, multiple sites] 09-08-2024 Episodic Other upper respiratory infections (5 sources) Acute sinusitis, unspecified; Translations: [Streptococcal sore throat] Onset: 2 10-03-2023 Episodic Sprains and strains (2 sources) Shoulder strain; Translations: [Sprain of metacarpophalangeal joint of left index finger, subsequent encounter] Onset: 5 Episodic Substance-related disorders (9 sources) Smoker; Translations: [...] Antinuclear Abs, IFA Negative Normal . [facility] Comment on above: Result Comment: Nega tive <1:80 Borderline 1:80 Positive >1:80 ICAP nomenclature: AC-0 For more information about Hep-2 cell patterns use ANApatterns.org, the official website for the International Consensus on Antinuclear Antibody (KELSI) Patterns (ICAP). Performed at: - [facility] [address] [id number] Admissions Specialist: Cory Cabrera PhD, Phone: [phone] Performed By: #### C CP, KELSI, RA #### [facility] , #### CBC, URIC, ESR, CRP #### [address] Basophils Auto (Bld) [#/Vol] Ordered By: Dc Dailey on 09-09-2024 Basophils (Bld) [#/Vol] Automated basoph il count 0.0-0.2 [facility] Basophils/100 WBC Auto (Bld) Ordered By: Dc Dailey on 09-09-2024 Basophils/100 WBC (Bld) Automated basophil % . [facility] C reactive protein [Mass/vol ume] in Serum or PlasmaOrdered By: Dc Dailey on 09-09-2024 CRP [Mass/Vol] C reactive protein [Mass/volume] in Serum or Plasma 0.0-0.5 [facility] C-Reactive Proteinon 025 CRP [Mass/Vol] mg/L Normal 0.0-0.5 [facility] Comment on above: Result Comment: PERF ORMED BY: [place] [address] PATHOLOGIST [employer]ADER RENETTA BOATENG M.D. Performed By: #### C CP, KELSI, RA #### [facility] , #### CBC, URIC, ESR, CRP #### [address] Complete Blood Count Auto Di ffon 09-09-2024 Basophils (Bld) [#/Vol] 0.1 10*3/uL Normal 0.0-0.2 [facility] Comment on above: Performed By: #### C CP, KELSI, RA #### [facility] , #### CBC, URIC, ESR, CRP #### [address] Basophils/100 WBC (Bld) 0.6 % Normal . [facility] Comment on above: Performed By: #### C CP, KELSI, RA #### [facility] , #### CBC, URIC, ESR, CRP #### [place] [address] [place] Eosinophils (Bld) [#/Vol] 0.1 10*3/uL Normal 0.0-0.45 [facility] Comment on above: Performed By: #### C CP, KELSI, RA #### [facility] , #### CBC, URIC, ESR, CRP #### [facility] [address] [place] [address] [place] Eosinophils/100 WBC (Bld) 1.0 % Normal . [facility] Comment on above: Performed By: #### C CP, KELSI, RA #### [facility] , #### CBC, URIC, ESR, CRP #### [address] Erythrocyte distribution width (RBC) [Ratio] 13.5 % Normal 12.0-14.8 [facility] Comment on above: Performed By: #### C CP, KELSI, RA #### [facility] , #### CBC, URIC, ESR, CRP #### [address] Hematocrit (Bld) [Volume fraction] 41.8 % Normal 38.8-50.0 [facility] Comment on above: Performed By: #### C CP, KELSI, RA #### [facility] , #### CBC, URIC, ESR, CRP #### [address] Hemoglobin (Bld) [Mass/Vol] 14.3 g/dL Normal 13.0-17.0 [facility] Comment on above: Performed By: #### C CP, KELSI, RA #### [facility] , #### CBC, URIC, ESR, CRP #### [address] Lymphocytes (Bld) [#/Vol] 2.1 10*3/uL Normal 1.00-4.8 [facility] Comment on above: Performed By: #### C CP, KELSI, RA #### [facility] , #### CBC, URIC, ESR, CRP #### [address] Lymphocytes/100 WBC (Bld) 16.2 % Normal . [facility] Comment on above: Performed By: #### C CP, KELSI, RA #### [facility] , #### CBC, URIC, ESR, CRP #### [address] MCH (RBC) [Entitic mass] 31.3 pg Normal 27.5-35.2 [facility] Comment on above: Performed By: #### C CP, KELSI, RA #### [facility] , #### CBC, URIC, ESR, CRP #### [address] MCV (RBC) [Entitic vol] 91.7 fL Normal 83.5-101 [facility] Comment on above: Performed By: #### C CP, KELSI, RA #### [facility] , #### CBC, URIC, ESR, CRP #### [address] Mean Corpuscular HGB Conc 34.2 g/dL Normal 32.5-35.6 [facility] Comment on above: Performed By: #### C CP, KELSI, RA #### [facility] , #### CBC, URIC, ESR, CRP #### [address] Monocytes (Bld) [#/Vol] 0.9 10*3/uL High 0.0-0.8 [facility] Comment on above: Performed By: #### C CP, KELSI, RA #### [facility] , #### CBC, URIC, ESR, CRP #### [address] Monocytes/100 WBC (Bld) 7.3 % Normal . [facility] Comment on above: Performed By: #### C CP, KELSI, RA #### [facility] , #### CBC, URIC, ESR, CRP #### [address] Neutrophils (Bld) [#/Vol] 9.8 10*3/uL High 1.8-7.7 [facility] Comment on above: Performed By: #### C CP, KELSI, RA #### [facility] , #### CBC, URIC, ESR, CRP #### [address] Neutrophils/100 WBC (Bld) 74.9 % Normal . [facility] Comment on above: Performed By: #### C CP, KELSI, RA #### [facility] , #### CBC, URIC, ESR, CRP #### [address] NRBC% 0.0 /100{WBC} Normal 0-0.5 [facility] Comment on above: Performed By: #### C CP, KELSI, RA #### [facility] , #### CBC, URIC, ESR, CRP #### [address] Platelet mean volume (Bld) [Entitic vol] 8.1 fL Normal 6.6-10.1 [facility] Comment on above: Performed By: #### C CP, KELSI, RA #### [facility] , #### CBC, URIC, ESR, CRP #### [address] Platelets (Bld) [#/Vol] 254 10*3/uL Normal 150-450 [facility] Comment on above: Performed By: #### C CP, KELSI, RA #### [facility] , #### CBC, URIC, ESR, CRP #### [place] [address] [place] RBC (Bld) [#/Vol] 4.56 10*6/uL Normal 3.90-5.60 [facility] Comment on above: Performed By: #### C CP, KELSI, RA #### [facility] , #### CBC, URIC, ESR, CRP #### [place] [address] [place] WBC (Bld) [#/Vol] 13.0 10*3/uL High 4.1-10.5 [facility] Comment on above: Performed By: #### C CP, KELSI, RA #### [facility] , #### CBC, URIC, ESR, CRP #### [address] Cyclic Citrulliated Pep Abon 09-09-2024 Cyclic Citrulliated Pep Ab 9 Normal 0-19 [facility] Comment on above: Result Comment: Nega tive <20 Weak positive 20 - 39 Moderate positive 40 - 59 Strong positive >59 Performed at: [facility] [address] [id number] Admissions Specialist: Cory Cabrera PhD, Phone: [phone] PERFORMED BY: [place] [address] PATHOLOGIST [employer]ADER RENETTA BOATENG M.D. Performed By: #### C BC, LIPID, TSH3, CMP #### [address] Eosinophils Auto (Bld) [#/Vo l]Ordered By: Dc Dailey on 09-09-2024 Eosinophils (Bld) [#/Vol] Automated eosinophil count 0.0-0.45 [facility] Eosinophils/100 WBC Auto (Bl d)Ordered By: Dc Dailey on 09-09-2024 Eosinophils/100 WBC (Bld) Automated eosinophil % . [facility] Erythrocyte Sedimentation Ra roderick 09-09-2024 ESR (Bld) [Velocity] 5 mm/h Normal 0-14 [facility] Comment on above: Result Comment: PERF ORMED BY: [place] [address] PATHOLOGIST [employer]ER RENETTA BOATENG M.D. Performed By: #### C CP, KELSI, RA #### [facility] , #### CBC, URIC, ESR, CRP #### [address] Erythrocyte distribution wid th Auto (RBC) [Ratio]Ordered By: Dc Dailey on 09-09-2024 Erythrocyte distribution width (RBC) [Ratio] Erythrocyte distribution width [Ratio] by Automated count 12.0-14.8 [facility] Erythrocyte sedimentation ra te by Photometric methodOrdered By: Dc Dailey on 09-09-2024 ESR Photometric method (Bld) [Velocity] Erythrocyte sedimentation rate by Photometric method 0-14 [facility] Hematocrit Auto (Bld) [Volum e fraction]Ordered By: Dc Dailey on 09-09-2024 Hematocrit (Bld) [Volume fraction] Hematocrit [Volume Fraction] of Blood by Automated count 38.8-50.0 [facility] Hemoglobin [Mass/volume] in BloodOrdered By: Dc Dailey on 09-09-2024 Hemoglobin (Bld) [Mass/Vol] Hemoglobin [Mass/volume] in Blood 13.0-17.0 [facility] Leukocytes [#/volume] correc cristino for nucleated erythrocytes in Blood by Automated counOrdered By: Dc Dailey on 09-09-2024 WBC corrected for nucl RBC Auto (Bld) [#/Vol] Leukocytes [#/volume] corrected for nucleated erythrocytes in Blood by Automated coun High 4.1-10.5 [facility] Lymphocytes Auto (Bld) [#/Vo l]Ordered By: Dc Dailey on 09-09-2024 Lymphocytes (Bld) [#/Vol] Lymphocytes [#/volume] in Blood by Automated count 1.00-4.8 [facility] Lymphocytes/100 WBC Auto (Bl d)Ordered By: Dc Dailey on 09-09-2024 Lymphocytes/100 WBC (Bld) Lymphocytes/100 leukocytes in Blood by Automated count . [facility] MCH Auto (RBC) [Entitic mass ]Ordered By: Dc Dailey on 09-09-2024 MCH (RBC) [Entitic mass] MCH [Entitic ma ss] by Automated count 27.5-35.2 [facility] MCHC Auto (RBC) [Mass/Vol]Or dered By: Dc Dailey on 09-09-2024 MCHC (RBC) [Mass/Vol] MCHC [Mass/volume] by Automated count 32.5-35.6 [facility] MCV Auto (RBC) [Entitic vol] Ordered By: Dc Dailey on 09-09-2024 MCV (RBC) [Entitic vol] MCV [Entitic vol ume] by Automated count 83.5-101 [facility] Monocytes Auto (Bld) [#/Vol] Ordered By: Dc Dailey on 09-09-2024 Monocytes (Bld) [#/Vol] Automated blood monocyte count High 0.0-0.8 [facility] Monocytes/100 WBC Auto (Bld) Ordered By: Dc Dailey on 09-09-2024 Monocytes/100 WBC (Bld) Automated monocyte % . [facility] Neutrophils Auto (Bld) [#/Vo l]Ordered By: Dc Dailey on 09-09-2024 Neutrophils (Bld) [#/Vol] Neutrophils [#/volume] in Blood by Automated count High 1.8-7.7 [facility] Neutrophils/100 WBC Auto (Bl d)Ordered By: Dc Dailey on 09-09-2024 Neutrophils/100 WBC (Bld) Automated neutrophil % . [facility] Nucleated erythrocytes [Pres ence] in Blood by Automated countOrdered By: Dc Dailey on 09-09-2024 Nucleated RBC Auto Ql (Bld) Nucleated erythrocytes [Presence] in Blood by Automated count 0-0.5 [facility] Platelet mean volume Auto (B ld) [Entitic vol]Ordered By: Dc Dailey on 09-09-2024 Platelet mean volume (Bld) [Entitic vol] Platelet mean volume [Entitic volume] in Blood by Automated count 6.6-10.1 [facility] Platelets Auto (Bld) [#/Vol] Ordered By: Dc Dailey on 09-09-2024 Platelets (Bld) [#/Vol] Platelets [#/vol ume] in Blood by Automated count 150-450 [facility] RBC Auto (Bld) [#/Vol]Ordere d By: Dc Dailey on 09-09-2024 RBC (Bld) [#/Vol] Erythrocytes [#/volume] in Blood by Automated count 3.90-5.60 [facility] Rheumatoid Factoron 09-10-19 Rheumatoid Factor <10.0 Normal <14.0 [facility] Comment on above: Result Comment: Perf ormed at: - [facility] [address] [id number] Admissions Specialist: Cory Cabrera PhD, Phone: [phone] Performed By: #### C CP, KELSI, RA #### [facility] , #### CBC, URIC, ESR, CRP #### [facility] [address] [place] [address] [place] Urate [Mass/volume] in Serum or PlasmaOrdered By: Dc Daiely on 09-09-2024 Urate [Mass/Vol] Urate [Mass/volume] in Serum or Plasma 4.4-7.6 [facility] Uric Acidon 09-09-2024 Urate [Mass/Vol] 5.3 mg/dL Normal 4.4-7.6 [facility] Comment on above: Performed By: #### C CP, KELSI, RA #### [facility] , #### CBC, URIC, ESR, CRP #### [facility] [address] [place] [address] [place] WBC Auto (Bld) [#/Vol]Ordere d By: Dc Dailey on 09-09-2024 WBC (Bld) [#/Vol] Leukocytes [#/volume ] in Blood by Automated count High 4.1-10.5 [facility] X-ray reportOrdered By: Rich Hardwick on 09-09-2024 Study report [facility] [place] [address] XRay Report Signed Patient: Refugio Posadas MR#: [id number] : 1990 Acct:[id number] Age/Sex: 34 / M ADM Date: 5 Loc: XD Room: Type: [facility] Attending Dr: Dc Dailey DO Copies to: Dc Dailey DO~ Ordering Provider: Dc Dailey DO Date of Service: 09/09/24 XR/XR hand RT min 3V*: M25.50 - Pain in unspecified joint ([id number]) XR/XR elbow RT min 3V*: M25.50 - [...] PM Dictation Location: RADIO-PC-23 Transcribed By: FRANNIE 09/09/241637 Dictated By: Joaquin Hardwick DO 09/09/241636 Signed By: 09/09/241637 [facility] XR elbow RT min 3V*on 2024 XR elbow RT min 3V* [facility] [place] [address] [place] [address] XRay Report Signed Patient: Refugio Posadas MR#: [id number] : 1990 Acct:[id number] Age/Sex: 34 / M ADM Date: 09/09/24 Loc: XD Room: Type: [facility] Attending Dr: Dc Dailey DO Copies to: Dc Dailey DO Ordering Provider: Dc Dailey DO Date of Service: 09/09/24 XR/XR hand RT min 3V*: M25.50 - Pain in unspecified joint ([id number]) XR/XR elbow RT min 3V*: M25.50 - [...] 1638 Dictated By: Joaquin Hardwick DO 09/09/24 1637 Signed By: 09/09/24 1638 Normal [facility] Alanine aminotransferase [En zymatic activity/volume] in Serum or PlasmaOrdered By: Dc Dailey on 08-20-2024 ALT [Catalytic activity/Vol] Alanine aminotransferase [Enzymatic activity/volume] in Serum or Plasma 7-52 [facility] Albumin [Mass/volume] in Ser um or Plasma by Bromocresol green (BCG) dye binding methoOrdered By: Dc Dailey on 08-20-2024 Albumin BCG dye [Mass/Vol] Albumin [Mass/volume] in Serum or Plasma by Bromocresol green (BCG) dye binding metho 3.5-5.7 [facility] Alkaline phosphatase [Enzyma tic activity/volume] in Serum or PlasmaOrdered By: Dc Dailey on 08-20-2024 ALP [Catalytic activity/Vol] Alkaline phosphatase [Enzymatic activity/volume] in Serum or Plasma 34-104 [facility] Aspartate aminotransferase [ Enzymatic activity/volume] in Serum or PlasmaOrdered By: Dc Dailey on 08-20-2024 AST [Catalytic activity/Vol] Aspartate aminotransferase [Enzymatic activity/volume] in Serum or Plasma 13-39 [facility] Basophils Auto (Bld) [#/Vol] Ordered By: Dc Dailey on 08-20-2024 Basophils (Bld) [#/Vol] Automated basoph il count 0.0-0.2 [facility] Basophils/100 WBC Auto (Bld) Ordered By: Dc Dailey on 08-20-2024 Basophils/100 WBC (Bld) Automated basophil % . [facility] Bilirubin.total [Mass/volume ] in Serum or PlasmaOrdered By: Dc Dailey on 08-20-2024 Bilirubin [Mass/Vol] Bilirubin.total [Mass/volume] in Serum or Plasma High 0.3-1.0 [facility] Calcium [Mass/volume] in Ser um or PlasmaOrdered By: Dc Dailey on 08-20-2024 Calcium [Mass/Vol] Calcium [Mass/volume ] in Serum or Plasma 8.6-10.3 [facility] Carbon dioxide, total [Moles /volume] in Serum or PlasmaOrdered By: Dc Dailey on 08-20-2024 CO2 [Moles/Vol] Carbon dioxide, tota l [Moles/volume] in Serum or Plasma 21.0-31.0 [facility] Chloride [Moles/volume] in S reginaldo or PlasmaOrdered By: Dc Dailey on 08-20-2024 Chloride [Moles/Vol] Chloride [Moles/volume] in Serum or Plasma 98-107 [facility] Cholesterol [Mass/volume] in Serum or PlasmaOrdered By: Dc Dailey on 08-20-2024 Cholesterol [Mass/Vol] Cholesterol [Mass/volume] in Serum or Plasma 140-200 [facility] Comment on above: Chol less than 200 m g/dl low riskChol 201-239 mg/dl borderline riskChol 240 mg/dl and greater high risk Cholesterol in HDL [Mass/vol ume] in Serum or PlasmaOrdered By: Dc Dailey on 08-20-2024 Cholesterol in HDL [Mass/Vol] Serum or plasma high density lipoprotein (HDL) cholesterol measurement 23-92 [facility] Comment on above: HDL CHOL ATP-III CLA SSIFICATION Cardiovascular RiskHDL > or equal to 60 mg/dL LOWHDL < 40 mg/dL HIGH Cholesterol in LDL Calc [Mas s/Vol]Ordered By: Dc Dailey on 08-20-2024 Cholesterol in LDL [Mass/Vol] Cholesterol in LDL [Mass/volume] in Serum or Plasma by calculation High 0-100 [facility] Comment on above: LDL ATP III CLASSIFI CATIONLDL less than 100 mg/dL OptimalLDL 100-129 mg/dL Near or above optimalLDL 130-159 mg/dL Borderline highLDL 160-189 mg/dL HighLDL greater than 189 mg/dL Very high Cholesterol in VLDL Calc [Ma ss/Vol]Ordered By: Dc Dailey on 08-20-2024 Cholesterol in VLDL [Mass/Vol] Cholesterol in VLDL [Mass/volume] in Serum or Plasma by calculation [facility] Complete Blood Count Auto Di ffon 08-20-2024 Basophils (Bld) [#/Vol] 0.1 10*3/uL Normal 0.0-0.2 [facility] Comment on above: Result Comment: PERF ORMED BY: [facility] [address] [place] [address] PATHOLOGIST [employer] RENETTA BOATENG M.D. Performed By: #### C BC, LIPID, TSH3, CMP #### [address] Basophils/100 WBC (Bld) 0.5 % Normal . [facility] Comment on above: Performed By: #### C BC, LIPID, TSH3, CMP #### [address] Eosinophils (Bld) [#/Vol] 0.1 10*3/uL Normal 0.0-0.45 [facility] Comment on above: Performed By: #### C BC, LIPID, TSH3, CMP #### [address] Eosinophils/100 WBC (Bld) 0.8 % Normal . [facility] Comment on above: Performed By: #### C BC, LIPID, TSH3, CMP #### [address] Erythrocyte distribution width (RBC) [Ratio] 13.9 % Normal 12.0-14.8 [facility] Comment on above: Performed By: #### C BC, LIPID, TSH3, CMP #### [address] Hematocrit (Bld) [Volume fraction] 43.1 % Normal 38.8-50.0 [facility] Comment on above: Performed By: #### C BC, LIPID, TSH3, CMP #### [address] Hemoglobin (Bld) [Mass/Vol] 14.6 g/dL Normal 13.0-17.0 [facility] Comment on above: Performed By: #### C BC, LIPID, TSH3, CMP #### [address] Lymphocytes (Bld) [#/Vol] 2.1 10*3/uL Normal 1.00-4.8 [facility] Comment on above: Performed By: #### C BC, LIPID, TSH3, CMP #### [address] Lymphocytes/100 WBC (Bld) 18.7 % Normal . [facility] Comment on above: Performed By: #### C BC, LIPID, TSH3, CMP #### [address] MCH (RBC) [Entitic mass] 30.8 pg Normal 27.5-35.2 [facility] Comment on above: Performed By: #### C BC, LIPID, TSH3, CMP #### [address] MCV (RBC) [Entitic vol] 90.8 fL Normal 83.5-101 [facility] Comment on above: Performed By: #### C BC, LIPID, TSH3, CMP #### [address] Mean Corpuscular HGB Conc 33.9 g/dL Normal 32.5-35.6 [facility] Comment on above: Performed By: #### C BC, LIPID, TSH3, CMP #### [address] Monocytes (Bld) [#/Vol] 0.9 10*3/uL High 0.0-0.8 [facility] Comment on above: Performed By: #### C BC, LIPID, TSH3, CMP #### [place] [address] [place] Monocytes/100 WBC (Bld) 8.4 % Normal . [facility] Comment on above: Performed By: #### C BC, LIPID, TSH3, CMP #### [place] [address] [place] Neutrophils (Bld) [#/Vol] 8.0 10*3/uL High 1.8-7.7 [facility] Comment on above: Performed By: #### C BC, LIPID, TSH3, CMP #### [place] [address] [place] Neutrophils/100 WBC (Bld) 71.6 % Normal . [facility] Comment on above: Performed By: #### C BC, LIPID, TSH3, CMP #### [address] NRBC% 0.0 /100{WBC} Normal 0-0.5 [facility] Comment on above: Performed By: #### C BC, LIPID, TSH3, CMP #### [address] Platelet mean volume (Bld) [Entitic vol] 7.8 fL Normal 6.6-10.1 [facility] Comment on above: Performed By: #### C BC, LIPID, TSH3, CMP #### [address] Platelets (Bld) [#/Vol] 262 10*3/uL Normal 150-450 [facility] Comment on above: Performed By: #### C BC, LIPID, TSH3, CMP #### [address] RBC (Bld) [#/Vol] 4.75 10*6/uL Normal 3.90-5.60 [facility] Comment on above: Performed By: #### C BC, LIPID, TSH3, CMP #### [address] WBC (Bld) [#/Vol] 11.2 10*3/uL High 4.1-10.5 [facility] Comment on above: Performed By: #### C BC, LIPID, TSH3, CMP #### [address] Comprehensive Metabolic Pane jeff 08-20-2024 Albumin [Mass/Vol] 4.7 g/dL Normal 3.5-5.7 [facility] Comment on above: Performed By: #### C BC, LIPID, TSH3, CMP #### [address] Albumin/Globulin [Mass ratio] 2.2 {ratio} Normal [facility] Comment on above: Performed By: #### C BC, LIPID, TSH3, CMP #### [facility] [address] ALP [Catalytic activity/Vol] 44 U/L Normal 34-104 [facility] Comment on above: Performed By: #### C BC, LIPID, TSH3, CMP #### [facility] [address] [place] [address] [place] ALT [Catalytic activity/Vol] 21 U/L Normal 7-52 [facility] Comment on above: Performed By: #### C BC, LIPID, TSH3, CMP #### [address] Anion gap [Moles/Vol] 9.6 mmol/L Normal 6.0-15.0 [facility] Comment on above: Performed By: #### C BC, LIPID, TSH3, CMP #### [address] AST [Catalytic activity/Vol] 19 U/L Normal 13-39 [facility] Comment on above: Performed By: #### C BC, LIPID, TSH3, CMP #### [place] [address] [place] Bilirubin [Mass/Vol] 1.1 mg/dL High 0.3-1.0 [facility] Comment on above: Performed By: #### C BC, LIPID, TSH3, CMP #### [place] [address] [place] Calcium [Mass/Vol] 9.6 mg/dL Normal 8.6-10.3 [facility] Comment on above: Performed By: #### C BC, LIPID, TSH3, CMP #### [place] [address] [place] Chloride [Moles/Vol] 105 mmol/L Normal 98-107 [facility] Comment on above: Performed By: #### C BC, LIPID, TSH3, CMP #### [place] [address] [place] CO2 [Moles/Vol] 30.0 mmol/L Normal 21.0-31.0 [facility] Comment on above: Performed By: #### C BC, LIPID, TSH3, CMP #### [address] Creatinine [Mass/Vol] 0.97 mg/dL Normal 0.70-1.30 [facility] Comment on above: Performed By: #### C BC, LIPID, TSH3, CMP #### [place] [address] [place] GFR/1.73 sq M.predicted MDRD (S/P/Bld) [Vol rate/Area] mL/min/{1.73_m2} Normal [facility] Comment on above: Performed By: #### C BC, LIPID, TSH3, CMP #### [address] Globulin (S) [Mass/Vol] 2.1 g/dL Normal T [facility] Comment on above: Performed By: #### C BC, LIPID, TSH3, CMP #### [address] Glucose [Mass/Vol] 90 mg/dL Normal 70-100 [facility] Comment on above: Result Comment: [facility] Glucose Reference Range is dependent on time and content of last meal. Glucose of more than 200 mg/dL in a nonstressed, ambulatory subject supports the diagnosis of Diabetes Mellitus. ADA recommended reference range Performed By: #### C BC, LIPID, TSH3, CMP #### [address] Potassium [Moles/Vol] 4.6 mmol/L Normal 3.5-5.1 [facility] Comment on above: Performed By: #### C BC, LIPID, TSH3, CMP #### [address] Protein [Mass/Vol] 6.8 g/dL Normal 6.4-8.9 [facility] Comment on above: Performed By: #### C BC, LIPID, TSH3, CMP #### [address] Sodium [Moles/Vol] 140 mmol/L Normal 136-145 [facility] Comment on above: Performed By: #### C BC, LIPID, TSH3, CMP #### [facility] [address] Urea nitrogen [Mass/Vol] 11 mg/dL Normal 7-25 [facility] Comment on above: Performed By: #### C BC, LIPID, TSH3, CMP #### [facility] [address] Creatinine [Mass/volume] in Serum or PlasmaOrdered By: Dc Dailey on 08-20-2024 Creatinine [Mass/Vol] Creatinine [Mass/volume] in Serum or Plasma 0.70-1.30 [facility] Eosinophils Auto (Bld) [#/Vo l]Ordered By: Dc Dailey on 08-20-2024 Eosinophils (Bld) [#/Vol] Automated eosinophil count 0.0-0.45 [facility] Eosinophils/100 WBC Auto (Bl d)Ordered By: Dc Dailey on 08-20-2024 Eosinophils/100 WBC (Bld) Automated eosinophil % . [facility] Erythrocyte distribution wid th Auto (RBC) [Ratio]Ordered By: Dc Dailey on 08-20-2024 Erythrocyte distribution width (RBC) [Ratio] Erythrocyte distribution width [Ratio] by Automated count 12.0-14.8 [facility] Globulin Calc (S) [Mass/Vol] Ordered By: Dc Dailey on 08-20-2024 Globulin (S) [Mass/Vol] Serum globulin measurement by calculation (mass/volume) [facility] Glucose [Mass/volume] in Ser um or PlasmaOrdered By: Dc Dailey on 08-20-2024 Glucose [Mass/Vol] Glucose [Mass/volume ] in Serum or Plasma 70-100 [facility] Comment on above: ADA recommended refe rence rangeRandom Glucose Reference Range is dependent on time and content of last meal. Glucose of more than 200 mg/dL in a nonstressed, ambulatory subject supports the diagnosis of Diabetes Mellitus. Hematocrit Auto (Bld) [Volum e fraction]Ordered By: Dc Dailey on 08-20-2024 Hematocrit (Bld) [Volume fraction] Hematocrit [Volume Fraction] of Blood by Automated count 38.8-50.0 [facility] Hemoglobin [Mass/volume] in BloodOrdered By: Dc Dailey on 08-20-2024 Hemoglobin (Bld) [Mass/Vol] Hemoglobin [Mass/volume] in Blood 13.0-17.0 [facility] Leukocytes [#/volume] correc cristino for nucleated erythrocytes in Blood by Automated counOrdered By: Dc Dailey on 08-20-2024 WBC corrected for nucl RBC Auto (Bld) [#/Vol] Leukocytes [#/volume] corrected for nucleated erythrocytes in Blood by Automated coun High 4.1-10.5 [facility] Lipid Panelon 08-20-2024 Cholesterol [Mass/Vol] 173 mg/dL Normal 140-200 [facility] Comment on above: Result Comment: Chol less than 200 mg/dl low risk Chol 201-239 mg/dl borderline risk Chol 240 mg/dl and greater high risk Performed By: #### C BC, LIPID, TSH3, CMP #### [facility] [address] Cholesterol in HDL [Mass/Vol] 42 mg/dL Normal 23-92 [facility] Comment on above: Result Comment: HDL CHOL ATP-III CLASSIFICATION Cardiovascular Risk HDL > or equal to 60 mg/dL LOW HDL < 40 mg/dL HIGH Performed By: #### C BC, LIPID, TSH3, CMP #### [facility] [address] [place] [id number] [facility] Cholesterol.total/Choles terol in HDL [Mass ratio] 4.1 {ratio} Normal <5.0 [facility] Comment on above: Performed By: #### C BC, LIPID, TSH3, CMP #### [facility] [address] [place] [id number] [facility] LDL Cholesterol,Calculated 119 mg/dL High 0-100 [facility] Comment on above: Result Comment: LDL ATP III CLASSIFICATION LDL less than 100 mg/dL Optimal LDL 100-129 mg/dL Near or above optimal LDL 130-159 mg/dL Borderline high LDL 160-189 mg/dL High LDL greater than 189 mg/dL Very high Performed By: #### C BC, LIPID, TSH3, CMP #### [facility] [address] Triglyceride w/Reflex 60 mg/dL Normal 0-149 [facility] Comment on above: Result Comment: TRIG ATP III CLASSIFICATION TRIG less than 150 mg/dL Normal TRIG 150-199 mg/dL Borderline high TRIG 200-500 mg/dL High TRIG greater than 500 mg/dL Very high Standard traceable to the Center for Disease Conrtrol and Prevention (CDC) test method. Performed By: #### C BC, LIPID, TSH3, CMP #### [facility] [address] VLDL CHOLESTEROL 12 mg/dL Normal [facility] Comment on above: Performed By: #### C BC, LIPID, TSH3, CMP #### [facility] [address] Lymphocytes Auto (Bld) [#/Vo l]Ordered By: Dc Dailey on 08-20-2024 Lymphocytes (Bld) [#/Vol] Lymphocytes [#/volume] in Blood by Automated count 1.00-4.8 [facility] Lymphocytes/100 WBC Auto (Bl d)Ordered By: Dc Dailey on 08-20-2024 Lymphocytes/100 WBC (Bld) Lymphocytes/100 leukocytes in Blood by Automated count . [facility] MCH Auto (RBC) [Entitic mass ]Ordered By: Dc Dailey on 08-20-2024 MCH (RBC) [Entitic mass] MCH [Entitic ma ss] by Automated count 27.5-35.2 [facility] MCHC Auto (RBC) [Mass/Vol]Or dered By: Dc Dailey on 08-20-2024 MCHC (RBC) [Mass/Vol] MCHC [Mass/volume] by Automated count 32.5-35.6 [facility] MCV Auto (RBC) [Entitic vol] Ordered By: Dc Dailey on 08-20-2024 MCV (RBC) [Entitic vol] MCV [Entitic vol ume] by Automated count 83.5-101 [facility] Monocytes Auto (Bld) [#/Vol] Ordered By: Dc Dailey on 08-20-2024 Monocytes (Bld) [#/Vol] Automated blood monocyte count High 0.0-0.8 [facility] Monocytes/100 WBC Auto (Bld) Ordered By: Dc Dailey on 08-20-2024 Monocytes/100 WBC (Bld) Automated monocyte % . [facility] Neutrophils Auto (Bld) [#/Vo l]Ordered By: Dc Dailey on 08-20-2024 Neutrophils (Bld) [#/Vol] Neutrophils [#/volume] in Blood by Automated count High 1.8-7.7 [facility] Neutrophils/100 WBC Auto (Bl d)Ordered By: Dc Dailey on 08-20-2024 Neutrophils/100 WBC (Bld) Automated neutrophil % . [facility] No Panel InformationOrdered By: Dc Dailey on 08-20-2024 Estimated GFR (CKD-EPI) > 60.0 mL/Min [facility] Creatinine Clearance (Chem N/A [facility] Nucleated erythrocytes [Pres ence] in Blood by Automated countOrdered By: Dc Dailey on 08-20-2024 Nucleated RBC Auto Ql (Bld) Nucleated erythrocytes [Presence] in Blood by Automated count 0-0.5 [facility] Platelet mean volume Auto (B ld) [Entitic vol]Ordered By: Dc Dailey on 08-20-2024 Platelet mean volume (Bld) [Entitic vol] Platelet mean volume [Entitic volume] in Blood by Automated count 6.6-10.1 [facility] Platelets Auto (Bld) [#/Vol] Ordered By: Dc Dailey on 08-20-2024 Platelets (Bld) [#/Vol] Platelets [#/vol ume] in Blood by Automated count 150-450 [facility] Potassium [Moles/volume] in Serum or PlasmaOrdered By: Dc Dailey on 08-20-2024 Potassium [Moles/Vol] Potassium [Moles/volume] in Serum or Plasma 3.5-5.1 [facility] Protein [Mass/volume] in Ser um or PlasmaOrdered By: Dc Dailey on 08-20-2024 Protein [Mass/Vol] Protein [Mass/volume ] in Serum or Plasma 6.4-8.9 [facility] RBC Auto (Bld) [#/Vol]Ordere d By: Dc Dailey on 08-20-2024 RBC (Bld) [#/Vol] Erythrocytes [#/volume] in Blood by Automated count 3.90-5.60 [facility] Serum or plasma albumin/glob ulin mass ratioOrdered By: Dc Dailey on 08-20-2024 Albumin/Globulin [Mass ratio] Serum or plasma albumin/globulin mass ratio [facility] Serum or plasma anion gap de terminationOrdered By: Dc Dailey on 08-20-2024 Anion gap [Moles/Vol] Serum or plasma an ion gap determination 6.0-15.0 [facility] Serum or plasma total choles terol/high density lipoprotein (HDL) cholesterol mass ratOrdered By: Dc Dailey on 08-20-2024 Cholesterol.total/Choles terol in HDL [Mass ratio] Serum or plasma total cholesterol/high density lipoprotein (HDL) cholesterol mass rat <5.0 [facility] Sodium [Moles/volume] in Ser um or PlasmaOrdered By: Dc Dailey on 08-20-2024 Sodium [Moles/Vol] Sodium [Moles/volume ] in Serum or Plasma 136-145 [facility] Thyroid Stimulating Hormoneo n 08-20-2024 TSH Qn 1.01 m[IU]/L Normal 0.45-5.33 [facility] Comment on above: Result Comment: PERF ORMED BY: [place] [address] PATHOLOGIST [employer] RENETTA BOATENG M.D. Performed By: #### C BC, LIPID, TSH3, CMP #### [address] Thyrotropin [Units/volume] i n Serum or PlasmaOrdered By: Dc Dailey on 08-20-2024 TSH Qn Thyrotropin [Units/volume] in Serum or Plasma 0.45-5.33 [facility] Triglyceride [Mass/volume] i n Serum or PlasmaOrdered By: Dc Dailey on 08-20-2024 Triglyceride [Mass/Vol] Triglyceride [Mass/volume] in Serum or Plasma 0-149 [facility] Comment on above: TRIG ATP III CLASSIF ICATIONTRIG less than 150 mg/dL NormalTRIG 150-199 mg/dL Borderline highTRIG 200-500 mg/dL High TRIG greater than 500 mg/dL Very highStandard traceable to the Center for Disease Conrtrol and Prevention (CDC) test method. Urea nitrogen [Mass/volume] in Serum or PlasmaOrdered By: Dc Dailey on 08-20-2024 Urea nitrogen [Mass/Vol] Urea nitrogen [Mass/volume] in Serum or Plasma 7-25 [facility] WBC Auto (Bld) [#/Vol]Ordere d By: Dc Dailey on 08-20-2024 WBC (Bld) [#/Vol] Leukocytes [#/volume ] in Blood by Automated count High 4.1-10.5 [facility] COVID-19, Rapidon 05-07-2024 SARS-CoV-2 (COVID-19) RdRp gene JAHAIRA+probe Ql (Resp) Not detected Not Detected [facility] Comment on above: Rapid [...] Nucleic Acid Amplification Specimen Description .NASOPHARYNGEAL SWAB [facility] [id number] 05-07-2024 SARS-CoV-2 (COVID-19) RNA JAHAIRA+probe Ql (Unsp spec) Not detected Normal [facility] Comment on above: Result Comment: [...] Amplification Performed By: #### C OVRB #### [facility] [address] [place] [address] Admissions Specialist: Dc Walker MD COVID-19, Rapidon 10-03-2023 SARS-CoV-2 (COVID-19) RdRp gene JAHAIRA+probe Ql (Resp) Not detected Not Detected [facility] Comment on above: Rapid NAAT: The specimen [...] management decisions. Fact sheet for Healthcare Providers: https://www.fda.gov/media/010626/download Fact sheet for Patients: https://www.fda.gov/media/840053/download Methodology: Isothermal Nucleic Acid Amplification Specimen Description .NASOPHARYNGEAL SWAB [facility] Flu A/B Ag Detectionon 10-02 Flu A Ag Detection Negative Normal NEG [facility] Comment on above: Result Comment: for Influenza A Antigen Performed By: #### F LUABA #### [facility] [address] [place] [address] Admissions Specialist: Dc Walker MD Flu B Ag Detection Negative Normal NEG [facility] Comment on above: Result Comment: for Influenza B Antigen. Performed By: #### F LUABA #### [facility] [address] [place] [address] Admissions Specialist: Dc Walker MD Rapid Strep Screenon 024 Interpretation and review of laboratory results Abnormal [facility] Specimen source Nom (Unsp spec) .THROAT SWAB [facility] Strep A, Molecular 0.1 Abnormal NEGATIVE [facility] Rapid influenza A/B antigens on 10-03-2023 FLUAV Ag Ql (Unsp spec) Negative NEGATIVE B ON [facility] Comment on above: for Influenza A Anti gen FLUBV Ag Ql (Unsp spec) Negative NEGATIVE B ON [facility] Comment on above: for Influenza B Anti gen. [facility] [id number] 10-03-2023 SARS-CoV-2 (COVID-19) RNA JAHAIRA+probe Ql (Unsp spec) Not detected [facility] Comment on above: Result Comment: Rapid NAAT: [...] management decisions. Fact sheet for Healthcare Providers: https://www.fda.gov/media/805351/download Fact sheet for Patients: https://www.fda.gov/media/544040/download Methodology: Isothermal Nucleic Acid Amplification Performed By: #### C OVRB #### [facility] [address] [place] [address] Admissions Specialist: Dc Walker MD Strep Group A, Rapidon 10-02 Strep A, Molecular .1 Abnormal NEG [facility] Comment on above: Performed By: #### R SAB #### [facility] [address] [place] [address] Admissions Specialist: Dc Walker MD Source .THROAT SWAB Normal [facility] Comment on above: Performed By: #### R SAB #### [facility] [address] [place] [address] Admissions Specialist: Dc Walker MD Consent for Treatmenton 06-20 Consent for Treatment [id number] 0TIFF Normal [facility] Discharge Instructionson Discharge Instructions [id number] 0TIFF Normal [facility] ED Clinical Summaryon 2023 ED Clinical Summary [address] [address] ED Clinical Summary Person Information Name: REFUGIO POSADAS/[facility] Age: 33 Years : 1990 Sex: Male Language: Italian PCP: NONE, XXXX Marital Status: Single Visit [...] 07/17/2023 13:06:54 07/17/2023 13:06:54 07/17/2023 13:06:54 ADDRESS: [address] [place] [address] [address] [facility] [phone] PHYS DOC NOTES: MEDICAL INFORMATION: Prescriptions Given: New Medications Printed Prescriptions naproxen (Naprosyn 500 mg Tab) 1 Tablets By Mouth 2 times a day. Refills: 0. PATIENT EDUCATION INFORMATION: Instructions: Crush Injury of the Hand Follow up: With: Address: When: Occupational Health: [facility] [place] [phone] In 3 days 07/20/2023 DIAGNOSIS: Crush injury forearm Normal [facility] ED Note-Physicianon 07-17-19 ED Note-Physician Basic Information Time Seen: Dylon Morfin PA-C 07/17/2023 10:43 Chief Complaint crankshaft pinned arm in block less than a minute. Rt arm pain and swelling History of Present Illness 33-year-old male comes to the ED for evaluation of right arm pain. 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 Appropriate healthcare PPE [...] = na Signed By: Robbie Glez MD [facility] Comment on above: Result Comment: Elec [...] and water are not available, use hand extension associate. ? Change your dressing as told by [...] health care provider. General instructions ? Take hdgs-ekn-njthxaz and prescription medicines only as told by your health care provider. ? If you were prescribed an antibiotic, take it as told by your health care provider. Do not stop taking the antibiotic even if you start to feel better. ? Do not use any products that contain nicotine or (more content not included)... Normal [facility] ED Patient Summaryon 024 ED Patient Summary [place] [id number] Patient Discharge Instructions Person Information Name: REFUGIO POSADAS Age: 33 Years Arrival Date: 07/17/2023 10:28:59 Discharge Diagnosis: Crush injury forearm Primary Care Physician: NONE, XXXX Provider Information Primary Provider: Jeremiah Torres DO [employer]:Dylon Morfin PA-C The exam and treatment you received in the Emergency Department were for an urgent problem and are not intended as complete care. It is important that you follow up with a doctor, nurse practitioner, or physician?s melter assistant for ongoing care. If your symptoms [...] Follow-up Instructions: With: Address: When: Occupational Health: [facility] [place] [phone] In 3 days 07/20/2023 In the event that this physician does not participate in your insurance network, please consult with your insurance company to find a nearby participating provider. Patient Education Materials: Crush Injury of the Hand A MESSAGE TO ALL PATIENTS REGARDING OPIOIDS PRESCRIPTION OPIOIDS: WHAT YOU NEED TO KNOW Prescription opioids can be used to help relieve oqhnoodx-vg-voiree pain and are often prescribed following a [...] be struggling with addiction, tell your health care technician and ask for guidance or call [facility] National Helpline at 4-403-057-TEQR. v Source: US Department of Health and Human Services/Center for Disease Cont (more content not included)... Normal [facility] Workers Comp Formson 024 Workers Comp Forms [id number] 0TIFF Normal [facility] XR Forearm 2 Views Righton [...] mGy = na DAP = na Normal [facility] [id number] 05-29-2023 SARS-CoV-2 (COVID-19) RNA JAHAIRA+probe Ql (Unsp spec) Not detected Normal [facility] Comment on above: Result Comment: [...] management decisions. Fact sheet for Healthcare Providers: https://www.fda.gov/media/021154/download Fact sheet for Patients: https://www.fda.gov/media/073740/download Methodology: Isothermal Nucleic Acid Amplification Performed By: #### C OVRB #### [facility] [address] [place] [address] [place] [address] Admissions Specialist: Dc Walker MD Vital Signs Date Time Vital Sign Value Performing Clinician Facility 09-08-2024 17:42-0400 Body temperature 98.7 [degF] Dc Dailey DO Work Phone: [facility] 09-08-2024 17:42-0400 Diastolic blood pressure 74 mm[Hg] Dc Dailey DO Work Phone: [facility] 09-08-2024 17:42-0400 Heart rate 113 /min Dc Dailey DO Work Phone: [facility] 09-08-2024 17:42-0400 SaO2% (BldA) [Mass fraction] 98 % Dc Dailey DO Work Phone: [facility] 09-08-2024 17:42-0400 Systolic blood pressure 112 mm[Hg] Dc Dailey DO Work Phone: [facility] 08-14-2024 10:38-0500 Body height 182.88 cm [facility] 08-14-2024 10:38-0500 Body mass index (BMI) [Ratio] 20.6 kg/m2 [facility] 08-14-2024 10:38-0500 Body temperature 98.6 [degF] [facility] 08-14-2024 10:38-0500 Body weight 68.94 kg [facility] 08-14-2024 10:38-0500 Diastolic blood pressure 72 mm[Hg] [facility] 08-14-2024 10:38-0500 Heart rate 97 /min [facility] 08-14-2024 10:38-0500 SaO2% (BldA) [Mass fraction] 98 % [facility] 08-14-2024 10:38-0500 Systolic blood pressure 108 mm[Hg] [facility] 05-07-2024 12:00-0500 Body temperature 98.01 [degF] [facility] [employer] [facility] [employer] 05-07-2024 12:00-0500 Diastolic blood pressure 76 mm[Hg] [facility] [employer] 05-07-2024 12:00-0500 Heart rate 88 /min [facility] [employer] 05-07-2024 12:00-0500 Respiratory rate 18 /min [facility] 05-07-2024 12:00-0500 SaO2% (BldA) [Mass fraction] 99 % [facility] [employer] 05-07-2024 12:00-0500 Systolic blood pressure 106 mm[Hg] [facility] [employer] 10-03-2023 12:15-0400 SaO2% (BldA) [Mass fraction] 98 % [facility] 10-03-2023 12:13-0400 Diastolic blood pressure 59 mm[Hg] [facility] 10-03-2023 12:13-0400 Systolic blood pressure 111 mm[Hg] [facility] 10-03-2023 10:55-0400 Body temperature 98.1 [degF] [facility] 10-03-2023 10:55-0400 Heart rate 98 /min [facility] 10-03-2023 10:55-0400 Respiratory rate 18 /min [facility] 07-19-2023 14:40-0500 Body height 182.88 cm FILM PRINTER Gabrielle Moreno Work Phone: [facility] 07-19-2023 14:40-0500 Body weight 74.84 kg FILM PRINTER Gabrielle Moreno Work Phone: [facility] 07-17-2023 13:06-0500 Diastolic blood pressure 76 mm[Hg] Jeremiah Torres [facility] 07-17-2023 13:06-0500 Heart rate 88 /min Jeremiah Torres [facility] 07-17-2023 13:06-0500 Mean blood pressure 92 mm[Hg] Jeremiah Torres [facility] 07-17-2023 13:06-0500 Respiratory rate 15 /min Jeremiah Torres [facility] 07-17-2023 13:06-0500 SaO2% (BldA) [Mass fraction] 99 % Jeremiah Torres [facility] 07-17-2023 13:06-0500 Systolic blood pressure 125 mm[Hg] Jeremiah Torres [facility] 07-17-2023 10:38-0500 Body temperature 98.6 [degF] Jeremiah Torres [facility] 07-17-2023 10:38-0500 Diastolic blood pressure 74 mm[Hg] Jeremiah Torres [facility] 07-17-2023 10:38-0500 Heart rate 91 /min Jeremiah Torres [facility] 07-17-2023 10:38-0500 Respiratory rate 18 /min Jeremiah Torres [facility] 07-17-2023 10:38-0500 SaO2% (BldA) [Mass fraction] 98 % Jeremiah Torres [facility] 07-17-2023 10:38-0500 Systolic blood pressure 123 mm[Hg] Jeremiah Torres [facility] 12-25-2019 00:10-0400 BP Diastolic 85 mm[Hg] [facility] [place] 12-25-2019 00:10-0400 BP Systolic 120 mm[Hg] [facility] [place] 12-25-2019 00:10-0400 Pulse (Heart Rate) 84 /min [place], [place] 12-25-2019 00:10-0400 Pulse Oximetry 100 % [place], [place] 12-25-2019 00:10-0400 Respiratory Rate 16 /min [facility] [place] 12-24-2019 23:31-0400 Body Temperature 98.01 [degF] [facility] [place] Encounters Encounter Date Encounter Type Care Provider Facility Start: 11-17-2024 ambulatory RICHARD C [facility] Start: 11-03-2024 ambulatory RICHARD Grimes [facility] Start: 09-09-2024 End: 09-09-2024 Patient encounter procedure Dc Dailey DO Work Phone: [facility] Work Phone: Start: 09-09-2024 End: 09-09-2024 ambulatory Dc Girvin DO Work Phone: [facility] Work Phone: Start: 09-08-2024 End: 09-08-2024 ambulatory Dc Asim DO Work Phone: [facility] Work Phone: Start: 09-08-2024 End: 09-08-2024 Patient encounter procedure Dc Dailey DO Work Phone: [facility] [place] Work Phone: Start: 08-20-2024 End: 08-20-2024 Patient encounter procedure Dc Dailey DO Work Phone: [facility] [place] Work Phone: Start: 08-20-2024 End: 08-20-2024 ambulatory Dc aDiley DO Work Phone: [facility] Work Phone: Start: 08-20-2024 Encounter for genera l adult medical examination without abnormal findings Dc Dailey [facility] Start: 08-14-2024 Patient encounter status [facility] Start: 08-14-2024 End: 08-14-2024 ambulatory [facility] Work Phone: Start: 08-14-2024 End: 08-14-2024 Patient encounter procedure [facility] Work Phone: Start: 05-07-2024 End: 05-07-2024 Emergency department patient visit [facility] ED Comment on above: Acute sinusitis, rec urrence not specified, unspecified location (Primary Dx) Start: 10-03-2023 End: 10-03-2023 Emergency department patient visit [facility] ED Comment on above: Strep pharyngitis (P rimary Dx) Start: 09-21-2023 End: 09-21-2023 ambulatory NON STAFF [facility] Work Phone: Start: 09-21-2023 End: 09-21-2023 Patient encounter procedure MAITE Moreno Work Phone: [facility] [address] Work Phone: Start: 08-24-2023 End: 08-24-2023 ambulatory NON STAFF [facility] Work Phone: Start: 08-24-2023 End: 08-24-2023 Patient encounter procedure FILM PRINTER Gabrielle Josh Work Phone: [facility] [address] Work Phone: Start: 08-03-2023 End: 08-03-2023 ambulatory NON STAFF [facility] Work Phone: Start: 08-03-2023 End: 08-03-2023 Patient encounter procedure FILM PRINTER Gabrielle Moreno Work Phone: [facility] [address] Work Phone: Start: 07-27-2023 End: 07-27-2023 ambulatory NON STAFF [facility] Work Phone: Start: 07-27-2023 End: 07-27-2023 Patient encounter procedure FILM PRINTER Gabrielle Moreno Work Phone: [facility] [address] Work Phone: Start: 07-24-2023 End: 07-24-2023 ambulatory NON STAFF [facility] Work Phone: Start: 07-24-2023 End: 07-24-2023 Patient encounter procedure FILM PRINTER Gabrielle Moreno Work Phone: [facility] [address] Work Phone: Start: 07-19-2023 End: 07-19-2023 ambulatory FILM PRINTER Gabrielle Moreno Work Phone: [facility] Work Phone: Start: 07-19-2023 End: 07-19-2023 Departed Referred FILM PRINTER Gabrielle Moreno Work Phone: [facility] Work Phone: Start: 07-19-2023 End: 07-19-2023 Patient encounter procedure MAITE Moreno Work Phone: [facility] Work Phone: Start: 07-19-2023 End: 07-19-2023 Patient encounter procedure MAITE Moreno Work Phone: [facility]- Start: 07-17-2023 End: 07-17-2023 Emergency department patient visit Jeremiah Brian Facility:[facility] [place] [place] Start: 07-17-2023 End: 07-17-2023 Emergency department patient visit Jeremiah Torres [facility] Start: 05-29-2023 End: 05-29-2023 Emergency department patient visit [facility] Start: 11-09-2021 End: 11-09-2021 ambulatory BRYCE RODRIGUEZ Facility: Start: 12-24-2019 End: 12-25-2019 Emergency department patient visit Brianbrittany Domingosain Work Phone: [facility] ED Comment on above: Strain of right shou lder, initial encounter (Primary Dx) Procedures Date Procedure Procedure Detail Performing Clinician Start: 09-09-2024 Plain X-ray of right elbow Dc Dailey DO Work Phone: Start: 09-09-2024 Plain X-ray of right hand Dc Dailey DO Work Phone: Start: 05-07-2024 JOANN SCOTT PA-C Work Phone: Start: 10-03-2023 JOANN SCOTT MD Work Phone: Start: 10-03-2023 End: 10-03-2023 [facility] a Pallavi Thompson MD Work Phone: Start: 07-19-2023 Plain X-ray of right wrist MAITE Moreno Work Phone: Plan of Treatment Date Care Activity Detail Author Start: 09-09-2024 Adenosine monophosphate.cyclic [Moles/volume] in Serum or Plasma [facility] Start: 09-09-2024 Rheumatoid factor [Units/volume] in Serum or Plasma [facility] Start: 09-09-2024 [facility] Start: 03-24-2024 DTaP/Tdap/Td vaccine (2 - Td or Tdap) DTaP/Tdap/Td vaccine (2 - Td or Tdap) [facility] Start: 02-17-2024 COVID-19 Vaccine ( season) COVID-19 Vaccine ( season) [facility] Start: 01-17-2024 Influenza vaccination [facility] Start: 02-17-2020 Influenza vaccination Flu vaccine (#1) [place] Start: 2007 DTaP/Tdap/Td vaccine (1 - Tdap) DTaP/Tdap/Td vaccine (1 - Tdap) [place] Start: 2007 Hepatitis B vaccine (1 of 3 - 19+ 3-dose series) Hepatitis B vaccine (1 of 3 - 19+ 3-dose series) [facility] Start: 2006 Hepatitis C screening Hepatitis C screen [facility] Start: 2003 HIV screening HIV screen [facility] Start: 2001 Varicella vaccine (1 of 2 - 13+ 2-dose series) Varicella vaccine (1 of 2 - 13+ 2-dose series) [facility] Start: 2000 Depression Screen Depression Screen [facility] Start: 1994 Pneumococcal 0-64 years Vaccine (1 of 1 - PPSV23) Pneumococcal 0-64 years Vaccine (1 of 1 - PPSV23) [place] Start: 1994 Pneumococcal 0-64 years Vaccine (1 of 2 - PCV) Pneumococcal 0-64 years Vaccine (1 of 2 - PCV) [facility] Start: 1989 Varicella vaccine (1 of 2 - 2-dose childhood series) Varicella vaccine (1 of 2 - 2-dose childhood series) [facility] Start: 1988 COVID-19 Vaccine (#1) COVID-19 Vaccine (#1) [facility] Start: 1988 Hepatitis B vaccine (1 of 3 - 3-dose series) Hepatitis B vaccine (1 of 3 - 3-dose series) [facility] Adenosine monophosphate.cyclic [Moles/volume] in Serum or Plasma [facility] Comprehensive metabo lic 2000 panel - Serum or Plasma [facility] Homogenous nuclear A b pattern [Titer] in Serum [facility] Nuclear Ab [Titer] i n Serum [facility] Rheumatoid factor [Units/volume] in Serum or Plasma [facility] XR Elbow - right GE 3 Views [facility] XR Hand - right GE 3 Views [facility] Immunizations Immunization Date Immunization Notes Care Provider Fa cility 03-24-2014 tetanus toxoid, redu sonam diphtheria toxoid, and acellular pertussis vaccine, adsorbed Jeremiah Torres [facility] Payers Date Payer Category Payer Unknown 2023 Worker's Compensation [id number] 2022 Unknown [id number] 2019 Unknown [facility] [id number] xxxxxxxxxx 2019-Present [address] [address] [place] [address] xxxxxxxxxx [id number] 1988 Unknown [id number] 93 1988 Unknown [id number] 27 1988 Unknown [id number] 73 1988 Unknown [id number] 73 1988 Unknown [id number] 73 1988 Unknown [id number] 286 1988 Unknown [id number] 286 1959 Self-pay Unknown [id number] Unknown [id number] 31 Unknown [id number] 31 Unknown [id number] 31 Social History Date Type Detail Facility Start: 12-24-2019 [facility] History of tobacco use Cigarette Sm[place] Start: 12-24-2019 End: 10-03-2023 Cigarettes smoked current (pack per day) - Reported [place], [place] Start: 12-24-2019 End: 05-07-2024 Alcohol intake Current non-drinker of alcohol (finding) [place] Start: 1990 Sex Assigned At Not on file [place] Exposure to SARS-CoV -2 (event) Unable to assess [place] Start: 07-17-2023 Tobacco smoking status Heavy t obacco smoker (finding) [facility] Start: 06-18-2008 End: 10-03-2023 Sex Assigned At Male [facility] Start: 1990 Sex Assigned At Male [facility] Start: 12-24-2019 Tobacco use and exposure Former smokeless tobacco user [place] How often to you hav e a drink containing alcohol? Never [employer] How many standard drinks containing alcohol do you have on a typical day? Patient does not drink [employer] Start: 08-14-2024 End: 08-14-2024 Tobacco smoking status NHIS Smoker (finding) [facility] Start: 08-14-2024 End: 09-10-2024 Sex Male (finding) [facility] Functional Status Date Assessment Result Facility 07-17-2023 Functional Status N/A [facility] Clinical Notes 07-17-2023 to 08-14-2024 Note Date & Type Note Facility 08-14-2024 Evaluation note Authored August 14, 2024 12:45pm The above note written by __ _Raul Chang____ acting as human recorder, note dictated by Dr. Srivastava .I performed the above HPI, ROS, and Examination. I formulated and dictated the treatment plan and was present for entire encounter. Dc Dailey D.O. [facility] Work Phone: 1(668) 937-113602-27-2025 Evaluation note* [facility] Authored August 14, 2024 12:45pm The above note written by __ _Raul Chang____ acting as human recorder, note dictated by Dr. Srivastava .I performed the above HPI, ROS, and Examination. I formulated and dictated the treatment plan and was present for entire encounter. Dc Dailey D.O. Author Dc [facility] Authored September 08, 2024 6:1 9pm The above note written by __ _Raul Chang____ acting as human recorder, note dictated by Dr. Srivastava .I performed the above HPI, ROS, and Examination. I formulated and dictated the treatment plan and was present for entire encounter. Dc Dailey D.O. [facility] Work Phone: [phone]) 570-392601-30-2024 Hospital Discharge instructions Patient Education 07/17/2023 13:06:54 [...] and water are not available, use hand extension associate. ?Change your dressing as told by your [...] your health care provider. General instructions Take asnu-jlr-troipzz and prescription medicines only as told by [...] provider. Document Revised: 09/22/2021 Document Reviewed: 09/22/2021 [employer] Patient Education 2022 [place]. Follow Up Care 07/17/2023 10:31:30 With:Occupational Health: [facility] [place] [place] [phone] Address:Unknown When:07/20/2023 12:45:06 [facility]01-30-2024 Evaluation + Plan noteExtracted from: Title:ED Note [...] Application Wrist XR Forearm 2 Views Right [facility] noteNo assessment information available [facility] Work Phone: Evaluation note* Diagnosis Strep pharyngitis- Primary Streptococcal sore throat documented in this encounter [facility] note* Diagnosis Acute sinusitis, recurrence not specified, unspecified location- Primary documented in this encounter [facility] note* Diagnosis Onset Date Resolution Status Admit Date Eczema acute August 14, 2024 11:06am Nicotine dependence acute Febru phoebe2024 11:06am [facility] Work Phone: Hospital course Narrative No data available for this section [facility] Discharge instructions* Attachments The following attachments cannot be sent through Care Everywhere. * Strep Throat (Italian) [facility] Attachments The following attachments cannot be sent through Care Everywhere. * Sinusitis: Acute (Italian) [facility] No data available for this section [facility] Discharge Instructions * Instructions* Brian [...] sent through Care Everywhere. 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 Advance Directive Response Recorded Date/ Time Advance [...] dependence August 14, 2024 11:06am Chief Complaint [facility] Initial Right Angel nd/Forearm Injury S67.21XA S67.21XA Chief Complaint [facility] Initial Right Angel nd/Forearm Injury S67.21XA S67.21XA S67.21XA S50.11XA, S58.81XA Chief Complaint [facility] Initial Right Angel nd/Forearm Injury S67.21XA S67.21XA S67.21XA S50.11XA S50.11XA, S57.81XA Chief Complaint [facility] Initial Right Angel nd/Forearm Injury S67.21XA [...] DATE CREATED AUTHOR AUTHOR'S ORGANIZ ATION 10/07/2023 [facility] DATE CREATED AUTHOR AUTHOR'S ORGANIZ ATION 05/10/2024 [facility] DATE CREATED AUTHOR AUTHOR'S ORGANIZ ATION 09/14/2024 [facility] DATE CREATED AUTHOR AUTHOR'S ORGANIZ ATION 11/24/2024 [facility] Care Teams (unrecognized sec tion and [...] 24, 2023 End: July 24, 2023 Ghazala Cochran APRN Attending Provider Active Start: July 24, [...] BE BASED ON THE PRIMARY CLINICAL RECORDS. [facility]. provides no warranty or guarantee of the accuracy or completeness of information in this document.
--- OUTSIDE RECORDS SUMMARY | 2024-12-05 07:54 | XMS_ITS | Patient Health Record ---
Author Organization [facility] [place] Address [address] [place] [address] Care Team Providers Care Math And Physics Instructor Name Role Phone Miguelito Brantley Primary Care Provider [phone] Ghazala Orozco [phone] Allergies Allergen (clinical drug ingredient) Drug/Non Drug Allergy documented on EMR Reaction Allergy Type Onset Date Status Vicodin Unknown Drug Allergy Active Penicillin anaphylaxis Drug Allergy Acti ve Night Time Cold & Cough hives Drug Allergy Active Reason For Referral No [...] Problem Smoker (F17.200) Active confirmed Vital Signs Blood pressure diastolic 76 mm Hg 08/14/2024 Height 72 in 08/14/2024 Blood pressure systolic 122 mm Hg 08/14/2024 Weight 156 lbs 08/14/2024 BMI 21.16 kg/m2 08/14/2024 Encounters Encounter Location Date Provider Diagnosis [facility] [address] [place] [address] 08/14/2024 Ghazala Lynn Eczema L30.9 and Smoker F17.200 Assessments Encounter Date Diagnosis (ICD Code) Assessment Notes Treatment Notes Treatment Clinical Notes Section Notes 08/14/2024 Eczema (ICD-10 - L30.9) continue with emollients fu as needed 08/14/2024 Smoker (ICD-10 - F17.200) discussed cessation patient states he has been tapering Plan Of Treatment No Information Insurance Providers Payer Name Payer Address Payer Phone Subscriber Number Group Number Insured Name Patient Relationship to Insured Coverage Start Date Coverage End Date [employer] [address] [place] [address] [id number] Rosangela Moss Spouse - patient is the spouse of the insured
--- OUTSIDE RECORDS SUMMARY | 2024-12-05 07:54 | XMS_ITS | Clinical Summary ---
Author Organization [employer] s [employer] Address [id number] [address] [place] [address] Care Team Providers Care Lumber Tripper Name Role Phone No Pcp, No Pcp Primary Care Provider Unavailabl e Allergies Active Allergy Reactions Criticality Noted Date Comments Diphenhydramine Hcl 04/09/2020 Hydrocodone-Acetaminophen Low 04/25/2018 Nyquil 04/09/2020 Penicillins Anaphylaxis High 01/14/2017 Obnaykplpux-Cy-Ncivvozpqfcfa 020 Medications ibuprofen (ADVIL,MOTRIN) 800 mg tablet Take 800 mg by mouth every 6 (six) hours as needed for pain. Active Active Problems No known active problems Encounters Date Type Department Care Team Description 11/17/2024 Travel 11/11/2024 Travel 11/03/2024 Travel from Last 3 Months Social History Tobacco Use Types Packs/Day Years Used Date Smoking Tobacco: Every Day Cigarettes Smokeless Tobacco: Never Alcohol Use Standard Drinks/Week Comments Not Currently 0 (1 standard drink = 0.6 oz pur e alcohol) AUDIT-C Answer Date Recorded Q1: How often do you have a drink containing alc ohol? Never 04/09/2020 Average Number of Drinks Not on file 020 Frequency of Binge Drinking Not on file 03/19 Childcare Answer Date Recorded Childcare Unknown 04/09/2020 Employment Answer Date Recorded Employment Unknown 04/09/2020 Purpose - Life Answer Date Recorded Purpose and direction in life Unknown Sex and Gender Information Value Date Recorded Sex Assigned at Not on file Legal Sex Male 8:02 PM EDT Gender Identity Not on file Sexual Orientation Not on file Last Filed Vital Signs Vital Sign Reading Time Taken Comments Blood Pressure 106/84 04/09/2020 8:14 PM EDT Pulse 110 04/09/2020 8:14 PM EDT Temperature 37 C (98.6 F) 04/09/2020 8:14 PM EDT Respiratory Rate 16 04/09/2020 8:14 PM EDT Oxygen Saturation 100% 04/09/2020 8:14 PM EDT Inhaled Oxygen Concentration - - Weight 72.6 kg (160 lb) 04/09/2020 8:14 PM EDT Height 182.9 cm (6') 04/09/2020 8:14 PM EDT Body Mass Index 21.7 04/09/2020 8:14 PM EDT Plan of Treatment Health Maintenance Due Date Last Done Comments Depression Screening 2000 Tobacco Screening 2000 Adult BMI Screening 2006 COVID-19 Vaccine (2 - 2023- season) 02/17/202406/2020 DTaP,Tdap and Td Vaccines (2 - Td or Tdap) 03/24/2024 03/24/2014 Influenza Vaccine 02/16/2025 Medical Devices Not on file Insurance ANTH WORKER'S COMPENSATION [employer] WORKER'S COMPENSATION WORKER'S COMPENSATION - GENERIC PLAN Care Teams Lumber Tripper Relationship Specialty Start Date End Date No Pcp, [place] [id number] PCP - General Family Medicine 04/09/20
--- NOTE | 2024-12-05 08:31 | ED_ITS ---
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 and he use his arm all the time Related Data Previous Rx's ?Medication ?Instructions ?Recorded etodolac 400 mg tablet 400 mg PO Q8H PRN pain #20 t abs 09/15/24 acetaminophen 650 mg 650 mg PO Q8H PRN pain #20 t abs 12/05/24 tablet,extended release (Tylenol 8 Hour) methylprednisolone 4 mg tablets in 4 mg PO .as directe d #21 ea 12/05/24 a dose pack (Medrol (Jonathan)) Allergies Allergy/AdvReac Type Severity Reaction Status Date / Time acetaminophen (From [facility] Allergy Intermediate Rash Verified 08/05/24 07:34 NyQuil Cold/Flu Liquicap) dextromethorphan (From [facility] Allergy Intermediate Rash Verified 08/05/24 07:34 NyQuil Cold/Flu Liquicap) doxylamine (From [facility] Allergy Intermediate Rash Verified 08/05/24 07:34 NyQuil Cold/Flu Liquicap) Penicillins Allergy Intermediate Hives Verified 08/05/24 07:34 hydrocodone (From Vicodin) AdvReac Mild Migraine Verified 08/05/24 07:34 Opioid HPI Opioid Management Most Recent Pain and Opioid Data: Last Pain Scale 8 Today, 07:59 Review of Systems ROS Status of ROS 10 or more systems reviewed and unremark able except as noted in history and below PFSH PFSH Social History Smoking status: Current some day smoker Little interest or pleasure in doing things: not at all Feeling down, depressed, or hopeless: not at all Exam Narrative Exam Narrative: Nurses notes and vital signs reviewed and patient is not hypoxic. General: Well-appearing and in no apparent distress. Skin: Warm, dry, no pallor noted. Right upper extremity: The patient have no vascular injury detected and the patient have a good radial pulse with normal capillary fill and his right elbow shows no significant swelling but he have tenderness upon palpation of the posterior aspect of the elbow No rash no hotness no redness Constitutional Vital Signs, click to edit/add: Last Vital Signs Temp 98.1 F 12/05/24 07:54 Pulse 84 12/05/24 07:54 Resp 16 12/05/24 07:54 BP 105/66 12/05/24 07:54 Pulse Ox 100 12/05/24 07:54 O2 Del Method Room Air 12/05/24 07:54 Course Vital Signs Vital signs: Vital Signs Temperature 98.1 F 12/05/24 07:54 Pulse Rate 84 12/05/24 07:54 Respiratory Rate 16 12/05/24 07:54 Blood Pressure 105/66 12/05/24 07:54 Pulse Oximetry 100 12/05/24 07:54 Oxygen Delivery Method Room Air 12/05/24 07:54 Temperature 98.1 F 12/05/24 07:54 Pulse Rate 84 12/05/24 07:54 Respiratory Rate 16 12/05/24 07:54 Blood Pressure 105/66 12/05/24 07:54 Pulse Oximetry 100 12/05/24 07:54 Oxygen Delivery Method Room Air 12/05/24 07:54 MDM - Extremity Injury (Upper) MDM Narrative Medical decision making narrative: Right now the patient was provided Medrol Dosepak as well as Tylenol for pain control He is to follow-up with his primary care doctor as outpatient for further evaluation follow-up with orthopedic The patient is to follow up with primary care physician in next 2-3 days or to return to the emergency department should any of the signs or symptoms worsen or new symptoms develop. The patient agrees with the following Diagnosis and Treatment plan and the patient will be discharged home. Discharge Plan Discharge Chief Complaint: Extremity Injury, Upper Clinical Impression: Arthritis of elbow Patient Disposition: Home, Self-Care Time of Disposition Decision: 08:05 Condition: Good Prescriptions / Home Meds: New methylprednisolone [Medrol (Jonathan)] 4 mg tablets,dose pack 4 mg PO .as directed Qty: 21 0RF Rx Instructions: please take as directed by the dose jonathan acetaminophen [Tylenol 8 Hour] 650 mg tablet extended release 650 mg PO Q8H PRN (Reason: pain) Qty: 20 0RF No Action etodolac 400 mg tablet 400 mg PO Q8H PRN (Reason: pain) Qty: 20 0RF Print Language: Nepali Instructions: Elbow Sprain (ED) Referrals: KODY NEUMANN [Primary Care Provider, Family Practice] - 1 week Discharge Date/Time: 12/05/24 08:16
== END 2024-12-05 08:16 | disposition home or self-care (01) ==
PROVIDERS: Emergency Provider Emergency Medicine; PCP Family Medicine
DX: M25.521 Pain in right elbow (principal); M13.821 Other specified arthritis, right elbow
CPT/HCPCS: 99283